=== PATIENT | female | born 1960 | race Caucasian/White ===

== ENCOUNTER 2022-11-24 15:14 | Outpatient (REF) | payer OTHER, SELFPAY ==
[2022-11-24 16:35] LABS: Abs Immature Grans 0.05 10^3/uL (0.0-0.06); Absolute Basophil Count 0.07 10^3/uL (0.0-0.2); Absolute Eosinophil Count 0.17 10^3/uL (0.0-0.7); Absolute Lymphocyte Count 2.16 10^3/uL (1.2-3.4); Absolute Monocyte Count 0.69 10^3/uL (0.1-0.8); Absolute Neutrophil Count 6.58 10^3/uL (1.2-6.7); Basophils % 0.7; Eosinophils % 1.7; HCT 48.4 % (36.0-46.0); HGB 15.4 g/dL (11.2-15.7); Immature Grans % 0.5; Lymphocytes % 22.2; MCH 26.4 pg (27.0-33.0); MCHC 31.8 % (32.0-36.0); MCV 83 fL (80-95); MPV 11.8 fL (8.0-11.0); Monocytes % 7.1; Neutrophils % 67.8; Platelet Count 332 10^3/uL (130-400); RBC 5.83 10^6/uL (3.93-5.22); RDW 14.5 % (11.7-14.6); RDW-SD 43.6 fL; WBC 9.72 10^3/uL (4.4-10.8)
[2022-11-24 17:44] LABS: ALT 29 U/L (14-59); AST 16 U/L (15-37); Albumin 3.8 g/dL (3.4-5.0); Alkaline Phosphatase 67 U/L (46-116); Anion Gap 11.2 mmol/L (3-11); BUN 16 mg/dL (7-18); Bilirubin, Total 0.4 mg/dL (0.2-1.0); CO2 26.8 mmol/L (21.0-32.0); CREATININE 0.8 mg/dL (0.55-1.02); Calculated LDL 201 mg/dL (<100); Chloride 106 mmol/L (98-107); Cholesterol 285 mg/dL (<200); Estimated GFR 82.74 (mL/min/1.73m2); Glucose 100 mg/dL (74-106); HDL Cholesterol 66 mg/dL (40-60); Potassium 4.7 mmol/L (3.5-5.1); Sodium 144 mmol/L (136-145); Total Protein 7.2 g/dL (6.4-8.2); Triglyceride 94 mg/dL (<150)
== END 2022-11-24 15:15 | disposition home or self-care (01) ==
LOC: LBN 15:14
PROVIDERS: Visit Provider Nurse Practitioner
DX: R06.02 Shortness of breath (principal); Z13.220 Encounter for screening for lipoid disorders; R01.1 Cardiac murmur, unspecified; F17.210 Nicotine dependence, cigarettes, uncomplicated; F41.8 Other specified anxiety disorders; R07.89 Other chest pain
CPT/HCPCS: 80053; 80061; 85025

== ENCOUNTER → 2022-12-02 00:57 | Outpatient (CLI) | payer OTHER, SELFPAY ==
--- NOTE | 2022-12-02 06:00 | ETT_ITS ---
APPROVED REPORT Exam: Exercise Treadmill Patient Location: Out-Patient Room/Bed: Stress Nurse: Irene Castrejon RN Ordering Provider:CHRISTIE COTO, Contact Number: [phone] BMI: 32.41 Baseline Rhythm: Sinus Rhythm Indications: family history of heart disease, aortic valve stenosis, chest pain Medical History Medical History: Current smoker, hx melanoma, anxiety, murmur, ?HLD Cardiac Medications: Aspirin Allergies: Penicillins Cardiac Risk Factors: +family history, current everyday smoker, ?HLD Previous Cardiac Procedures: None Pretest Chest Pain Characteristics: None Exercise History: Indeterminate Physical Disabilities: None Lung Sounds: LCTA Heart Sounds: Regular Stress Test Details Test: Exercise stress testing was performed using a Isreal protocol. Rest Stress HR Resting HR Supine: 69 bpm Max Heart Rate (APMHR): 157 bpm Resting HR Standin bpm Target HR (85% APMHR): 133 bpm Max HR Achieved: 141 bpm % of APMHR: 90 Recovery HR: 80 bpm HR response to stress: Normal HR response to stress BP Resting BP Supine: 123/72 mmHg Resting BP Standin/90 mmHg Max BP: 188/78 mmHg Recovery BP: 128/98 mmHg BP response to stress: Normal blood pressure response to stress. ECG Resting ECG: Sinus Rhythm Ectopy: None Stress ECG: Sinus Tachycardia ST Change: No significant ST segment changes noted Arrhythmia: None Recovery ECG: Sinus Rhythm Recovery ST Change: No significant ST segment changes noted Recovery Arrhythmia: Rare PAC Clinical Reason for Termination: Fatigue, Dyspnea Stress Symptoms: Dyspnea, General Fatigue Exercise duration: 6 min08 sec Highest Stage Reached: Stage 3: 3.4 mph at 14% grade. Exercise capacity: 7.25 METs Angina Score: None [place] Treadmill Score: 5.5 Rate Pressure Product: [id number] Stress ECG Conclusion 1. Resting electrocardiogram was within normal limits 2. Patient exercised on the Isreal protocol and completed a workload of 7.25 METS 3. Normal heart rate and blood pressure response to exercise. The patient achieved 90% of predicted heart rate for age 4. There was no electrocardiographic evidence of myocardial ischemia 5. There were no significant dysrhythmias [place] Treadmill Score is 5.5 which is Low risk. Stress Test Summary STAGE Time (mins) Speed (mph) Grade (%) HR BP SpO2 SYMPTOMS METS Supine 69 123/72 Standing 69 112/90 1 3 1.7 10 117 150/90 4.5 2 6 2.5 12 138 7 3 9 3.4 14 141 10 1 min recovery 121 188/78 3 min recovery 94 138/64 6 min recovery 80 128/68
== END ==
PROVIDERS: PCP Nurse Practitioner; Visit Provider Nurse Practitioner
DX: R06.02 Shortness of breath (principal); R07.9 Chest pain, unspecified
CPT/HCPCS: 93017

== ENCOUNTER 2022-12-20 15:08 | Emergency (ER) | payer OTHER, SELFPAY ==
[2022-12-20] VITALS (8 sets, daily range): BP systolic 156–187; BP diastolic 75–102; PULSE 64–84; RESP 16–20; TEMP 36.8–36.9; O2SAT 97–100
--- NOTE | 2022-12-20 15:00 | RT.EKG_ITS ---
APPROVED REPORT Exam: Resting ECG Reason for Exam: chest pain Patient Location: E HR:79 bpm ECG Measurements Heart Rate 79 AXIS MN 156 P 51 QRSd 85 QRS 37 QT 380 T 33 QTc 435 Conclusion Sinus rhythm...normal P axis, V-rate 60- 99 Probable left atrial enlargement...P >50mS, <-0.10mV V1 sinus rhythm, normal axis, normal intervals, non ischemic
--- NOTE | 2022-12-20 15:30 | DI.RAD_ITS ---
Exam(s) XR CHEST 2V PA LATERAL EXAM: XR CHEST 2V PA LATERAL CLINICAL HISTORY: chest pain TECHNIQUE: 2D digital imaging was performed. COMPARISON: No exams were available for comparison FINDINGS: Leads overlie the chest HEART: Normal size. Aorta: Not dilated. PULMONARY VASCULATURE: Normal. LUNGS: Clear. PLEURAL SPACE: No pleural effusion or pneumothorax. BONE:Unremarkable for age. IMPRESSION: No acute abnormality. DATA REPOSITORY: RADIATION DOSE DELIVERED:
--- NOTE | 2022-12-20 15:37 | ED.GENADUL_ITS ---
Discharge Plan Disposition Patient Disposition: Home Condition: Improving Discharge Details Chief Complaint: Chest Pain Clinical Impression: Chest pain Primary Care Provider: Kiki Ames ED Provider: Jass Álvarez Home Meds and New Rx's Prescriptions: No Action Zyrtec 10 mg capsule 10 mg PO DAILY PRN (Reason: allergies) PreserVision AREDS 2 Plus MV 200 mcg-15 mcg- 5 mg-1 mg capsule PO DAILY Patient Comments: Pt states not taking ML 12/20/22 aspirin [Adult Aspirin Regimen] 81 mg tablet,delayed release (DR/EC) 81 mg PO DAILY cholecalciferol (vitamin D3) 50 mcg (2,000 unit) capsule 50 mcg PO DAILY cyanocobalamin (vitamin B-12) [Vitamin B-12] 250 mg PO DAILY Discharge Instructions Instructions: Chest Pain (ED) Additional Instructions: Please follow-up with your carbon electrodes supervisor and your echocardiogram as scheduled. Return to the emergency department for any worsening symptoms Medical Decision Making 62-year-old female presents with intermittent chest pain over the last couple of weeks, more noticeable this morning, brief in nature rating to left arm, no shortness of breath no nausea vomiting or diaphoresis; no leg pain swelling or history of thromboembolic disease no exogenous estrogen use. Recent normal cardiac stress test. Scheduled for echocardiogram this week. Currently asymptomatic. Noted to be hypertense on arrival now systolic blood pressure in the 150s. EKG normal sinus rhythm normal axis normal intervals nonischemic. Must consider ACS versus musculoskeletal strain versus costochondritis versus pleurisy lower suspicion for PE or aortic pathology, lower suspicion for pneumothorax or pneumonia. Given age and family history will obtain basic labs troponin chest x-ray, will complete patient's dose of aspirin as she took 81 mg of aspirin earlier today. If negative labs and imaging and patient remains asymptomatic will likely follow-up for echocardiogram and cardiology follow-up 16: 34 patient resting comfortably no acute distress hemodynamically stable. Labs and imaging unremarkable. Patient does endorse a history of costochondritis. Shared decision at bedside regarding second troponin versus home with close follow-up. Patient feeling better would like to follow-up as an outpatient. Given strict return precautions for any worsening symptoms HPI General Date/Time Provider Initiated Documentation: 12/20/22 15:25 . HPI Narrative: 62-year-old female family history of coronary disease, presents with intermittent left anterior chest pain radiating to left arm over the last couple of weeks nonexertional; no shortness of breath nausea vomiting or diaphoresis. Episodes are intermittent and brief in nature. No leg pain, no exogenous estrogen use no history of thromboembolic disease. Recent stress test normal per patient. Is scheduled for an echo this week. Currently asymptomatic Related Data Home Medications Medication Instructions Recorded Confirmed aspirin 81 mg tablet,delayed 81 mg PO DAILY 11/23/22 12/20/22 release (Adult Aspirin Regimen) cetirizine 10 mg capsule (Zyrtec) 10 mg PO DAILY PRN allergies 11/23/22 12/20/22 cholecalciferol (vitamin D3) 50 50 mcg PO DAILY 11/23/22 12/20/22 mcg (2,000 unit) capsule cyanocobalamin (vitamin B-12) 250 mg PO DAILY 11/23/22 12/20/22 [Vitamin B-12] mv-mn-folic 200 mcg-vit K 15 cap PO DAILY 11/23/22 mcg-lutein 5 mg-zeaxanthin 1 mg capsule (PreserVision AREDS 2 Plus Multivit) Allergies Allergy/AdvReac Type Severity Reaction Status Date / Time Penicillins Allergy Unknown unknown Verified 12/20/22 16:06 General Stated Complaint: Chest Pain ROSA: 2 Review of Systems Narrative: Review of Systems Constitutional: negative Eyes: negative ENT: negative Cardiovascular: Chest pain Respiratory: negative Gastrointestinal: negative : negative Musculoskeletal: negative Skin: negative Neurologic: negative Psych: negative PFSH All Active Problems (Updated 12/20/22 @ 16:36 by Jass Álvarez MD) Chest pain (Acute) Onychomycosis (Acute) 12/08/22 [facility] Derm History of melanoma (Acute) Tobacco abuse (Acute) Macular degeneration (Acute) Medical History (Updated 12/20/22 @ 16:36 by Jass Álvarez MD) Amputated toe of right foot H/O anxiety disorder Surgical History (Updated 10/21/22 @ 15:49 by Chela Bruce) H/O abdominoplasty H/O breast augmentation Family History (Updated 11/24/22 @ 10:38 by Kiki Ames NP) Mother Cancer Diabetes Heart disease Hypertension Father Heart disease Brother Heart disease Sister Cancer Renal cancer Social History (Updated 11/24/22 @ 10:17 by Lorena Wren LPN) Smoking/Tobacco Use Status: Current every day Tobacco: How many years used: 30 Quit status: considering quitting Smoking risk assessment performed?: Yes Alcohol Intake: current Alcohol Intake frequency: 0-2 drinks per day Alcohol type: wine Counseling given: No Details: 1 glass of wine per day Drug use: Never Adopted: No Caregiver/Support person: No Foster care: No Household members: spouse Housing: house Number of Children: 3 number of grandchildren: 3 Communication Needs: None and Corrective Lenses Education Level: vocational Do you need help understanding health information?: Never 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 Pets and animals: No Sexually active: Yes Do you think of yourself as: straight/heterosexual Current gender identity: female What is your relationship status?: How often do you talk on the phone with friends or family?: once per week Do you belong to any clubs or organized social groups?: no Panel score (0-1 are the most socially isolated patients): 1 What type of physical activity do you participate in: none Usha/Anglican: Rastafarian Special usha needs: No Seatbelt use: always Drive intox or ride w/intox auto crane driver: No Working smoke detector in home: Yes Carbon monox detector in home: Yes Do you feel safe at home: Yes Do you feel safe in your relationship?: Yes Exam Narrative Exam Narrative: Physical Examination General: alert, awake, cooperative, resting comfortably, no acute distress HEENT: normocephalic, atraumatic; PERRL, EOM intact, conjunctiva normal; no nasal discharge; moist mucous membranes, oral and pharyngeal mucosa normal, tolerating secretions Neck: supple, trachea midline; full ROM Chest: normal to inspection Respiratory: normal respiratory effort, speaking in full sentences, clear to auscultation, no wheezing, rales or rhonchi Cardiac: regular rate, regular rhythm, S1S2 intact, no murmurs rubs or gallops GI: abdomen soft, non-tender, non-distended; no palpable mass or hepatosplenomegaly Skin: no lesions, rashes or trauma appreciated Neuro: AAOx3, normal speech, moving all extremities Extremities: No peripheral edema Psych: Appropriate mood and affect Course Vital Signs Vital signs: Vital Signs Temperature 36.8 C 12/20/22 15:11 Pulse 81 12/20/22 15:11 Respiratory Rate 18 12/20/22 15:11 Blood Pressure 187/102 H 12/20/22 15:11 Pulse Oximetry 99 09/11/23 15:11 Temperature 36.8 C 12/20/22 15:11 Temperature Source Oral 12/20/22 15:11 Pulse 69 12/20/22 15:31 Pulse 76 12/20/22 15:31 Respiratory Rate 20 12/20/22 15:18 Respiratory Effort Normal 12/20/22 15:18 Respiratory Depth Normal 12/20/22 15:18 Respiratory Pattern Normal 12/20/22 15:18 Blood Pressure 156/88 H 12/20/22 15:31 Blood Pressure Mean 111 12/20/22 15:31 Pulse Oximetry 98 12/20/22 15:31 Oxygen Delivery Method Room Air 12/20/22 15:11 Oxygen Flow Rate 0 12/20/22 15:11 Pain Level 5 12/20/22 15:18
[2022-12-20] MEDS: Aspirin 81 MG CHEW 243 MG CH (15:39)
[2022-12-20 15:48] LABS: Abs Immature Grans 0.04 10^3/uL (0.0-0.06); Absolute Basophil Count 0.08 10^3/uL (0.0-0.2); Absolute Eosinophil Count 0.27 10^3/uL (0.0-0.7); Absolute Lymphocyte Count 3.07 10^3/uL (1.2-3.4); Absolute Monocyte Count 0.77 10^3/uL (0.1-0.8); Absolute Neutrophil Count 6.23 10^3/uL (1.2-6.7); Basophils % 0.8; Eosinophils % 2.6; HCT 47.7 % (36.0-46.0); HGB 15.5 g/dL (11.2-15.7); Immature Grans % 0.4; Lymphocytes % 29.3; MCH 26.7 pg (27.0-33.0); MCHC 32.5 % (32.0-36.0); MCV 82 fL (80-95); MPV 10.8 fL (8.0-11.0); Monocytes % 7.4; Neutrophils % 59.5; Platelet Count 333 10^3/uL (130-400); RDW 14.4 % (11.7-14.6); WBC 10.46 10^3/uL (4.4-10.8)
[2022-12-20 16:10] LABS: ALT 32 U/L (14-59); AST 20 U/L (15-37); Albumin 3.9 g/dL (3.4-5.0); Alkaline Phosphatase 70 U/L (46-116); Anion Gap 12.3 mmol/L (3-11); BUN 17 mg/dL (7-18); Bilirubin, Total 0.3 mg/dL (0.2-1.0); CO2 25.7 mmol/L (21.0-32.0); CREATININE 0.9 mg/dL (0.55-1.02); Calcium 9.3 mg/dL (8.5-10.1); Chloride 101 mmol/L (98-107); Estimated GFR 71.83 (mL/min/1.73m2); Glucose 94 mg/dL (74-106); Potassium 3.7 mmol/L (3.5-5.1); Sodium 139 mmol/L (136-145); Total Protein 8.2 g/dL (6.4-8.2); Troponin I < 50 ng/L (<or=60)
== END 2022-12-20 16:47 | disposition home or self-care (01) ==
PROVIDERS: Emergency Provider Emergency Medicine; PCP Nurse Practitioner
DX: R07.9 Chest pain, unspecified (principal)
CPT/HCPCS: 36415; 80053; 93005; 99284; 71046; 84484; 85025; 93010

== ENCOUNTER → 2022-12-24 00:35 | Outpatient (CLI) | payer OTHER, SELFPAY ==
--- NOTE | 2022-12-24 07:30 | DI.US_ITS ---
APPROVED REPORT EXAM: Comprehensive 2D, Doppler, and color-flow Echocardiogram Patient Location: Out-Patient Music Autographer: Angela Hyman RDCS (AE) Indications: Strong family history of aortic stenosis, cardiac murmur Other Information Study Quality: Adequate Conclusion Normal left ventricular wall thickness and chamber size. Ejection fraction is 55 to 60%. Wall motio n is normal Normal right ventricular size and systolic function Both atria are normal in size Aortic valve is mildly sclerotic and trileaflet without stenosis or regurgitation Estimated right ventricular systolic pressure is 28 mmHg Wall motion Left Ventricle The left ventricle is normal size. The left ventricular systolic function is normal. The left ventric ular ejection fraction is within the normal range. There is normal left ventricular wall thickness. T here is normal LV segmental wall motion. There is no ventricular septal defect visualized. LVEF is 57 %. Right Ventricle The right ventricle is normal size. The right ventricular systolic function is normal. Atria The left atrium size is normal. The right atrium size is normal. The interatrial septum is intact wit h no evidence for an atrial septal defect. Aortic Valve The Aortic valve is mildly sclerotic. Aortic valve is trileaflet. There is no aortic valvular stenosi s. No aortic regurgitation is present. Mitral Valve The mitral valve is normal in structure. No evidence of mitral valve stenosis. Trace mitral regurgita tion. Tricuspid Valve The tricuspid valve is normal in structure. There is no tricuspid valve stenosis. Trace tricuspid reg urgitation. The RVSP is 27.7mmHg. Pulmonic Valve The pulmonary valve is normal in structure. There is no pulmonic valvular stenosis. There is no pulmo mylene valvular regurgitation. Great Vessels The aortic root is normal in size. The ascending aorta is normal in size. Descending aorta is normal in caliber. IVC is normal in size and collapses >50% with inspiration. Pericardium There is no pericardial effusion. 2D Dimensions IVSD d PLAX 0.85 cm F: 0.6-1.0 Ao Root d 2.99 cm F: 2.7 - 3.3 LVPW d PLAX 0.84 cm F: 0.6 - 1.0 Ao Asc Diam d 3.06 cm F: 2.3 - 3.1 LVID d PLAX 4.31 cm F: 3.8 - 5.2 LVDs 2.92 cm F: 2.2 - 3.5 LV EF Teichholz 60.9 % FS 32.31 % LV EDV (Teich) 83.5 mL LV ESV (Teich) 32.7 mL M-Mode TAPSE 2.64 cm (M/F) >1.7 Auto EF LV EDV A4C 66.3 mL LV EDV A2C 100.4 mL LV EDV BP LV ESV A4C 28.6 mL LV ESV A2C 41.6 mL LV ESV BP LVEF(%) A4C 56.9 % LVEF(%) A2C 58.5 % LVEF(%) BP LV SV A4C 37.7 ml LV SV A2C 58.8 ml LV SV BP LV CO A4C 2.3 L/min LV CO A2C 3.7 L/min LV CO BP HR A4C 61.84 BPM HR A2C 63.61 BPM LV EDV Index (BP) LA Volume LA Length A4C 4.6 cm LA Length A2C 4.9 cm LA Area A4C s 16.34 cm2 LA Area A2C s 14.38 cm2 LA Vol A4C A-L 49.16 mL LA Vol A2C A-L 36.07 mL LA Vol Biplane A-L 43.3 mL LA Vol/BSA A4C A-L LA Vol/BSA A2C A-L LA Vol/BSA BP A-L 23.3 mL/m2 LA Vol A4C MOD 46.5 mL LA Vol A2C MOD 32.5 mL LA Vol BP MOD 39.8 mL RA Volume RA Area A4C 8.0 cm2 RA ESV A4C (A-L) 15.5mL RA Vol/BSA A4C A-L RA Length A4C 3.5 cm RA ESV A4C (MOD) 15.2mL LV Diastology MV E' medial 0.069 (>0.07 m/s) MV E Vmax 0.80 (0.4-1.3 m/s) MV E/E' MED 11.62 (<14) MV A Vmax 0.80 (0.4-1.3 m/s) MV E' lateral 0.094 (>0.1 m/s) E/A Ratio 1.0 MV E/E' LAT 8.52 (<14) MV E' Average 0.081 m/s MV E/E'(average) 9.83 Aortic Valve AoV Vmax 1.53 m/s LVOT Vmax 1.09 m/s AoV Peak Grad 9.3 mmHg LVOT Peak Grad 4.7 mmHg AoV Area (Vmax) 1.96 cm2 LVOT VTI 0.251 m AoV VTI 0.352 m LVOT Mean Grad 2.1 mmHg AoV Mean Dk. 0.97 m/s LVOT SV 69.28 mL AoV Mean Grad 4.5 mmHg LVOT Diam s 1.85 cm AoV Area (VTI) 1.97 cm2 Velocity Ratio 0.71 Mitral Valve MV DT 198 (160-240 msec) MV Vmax TIPS 1.07 m/s MV Mean Grad 1.8 (<2mmHg) MV VTI 0.370 m Pulmonary Valve PV Vmax 0.98 (0.5-1.5 m/s) RVOT Vmax 0.63 m/s PV Peak Grad 3.9 mmHg RVOT Peak Gr. 1.6 mmHg PV Mean Dk 0.69 m/s RVOT VTI 0.152 m PV Mean Grad 2.1 mmHg RVOT Mean Gr. 0.8 mmHg Tricuspid Valve RA Pressure 3.00 mmHg TR Vmax 2.49 m/s TV S' 0.10 m/s TR Peak Grad 24.7 mmHg RVSP (TR) 27.7 mmHg
== END ==
PROVIDERS: PCP Nurse Practitioner; Visit Provider Nurse Practitioner
DX: R01.1 Cardiac murmur, unspecified (principal); Z82.49 Family history of ischemic heart disease and other diseases of the circulatory system
CPT/HCPCS: 93306

== ENCOUNTER 2023-01-11 12:29 | Outpatient (REF) | payer OTHER, SELFPAY ==
--- NOTE | 2023-01-11 10:00 | PAPFT_PTH ---
PATIENT: Jazmyn Kearney LOC: [facility] U#:[id number] AGE/SX: 62/F ROOM: RE01/11/[address]: Kiki Ames APRN : 1960 BED: DIS: 01/11/2023 SPEC #: [id number] RECD: 01/11/23 18:19 STATUS: BHUPINDER REQ #: [id number] RITA: 01/11/23 10:[address]: Kiki Ames DEPT: [facility] Cytology RECD BY: Maryan New Tissues: 1 - CX/ENDOCX FOR PAP SMEARS Procedures: PAP THIN PREP/UVM Screening HPV DNA PROBE Comments: [id number]
== END 2023-01-11 12:30 | disposition home or self-care (01) ==
LOC: LBO 12:29
PROVIDERS: PCP Nurse Practitioner; Visit Provider Nurse Practitioner
DX: Z12.4 Encounter for screening for malignant neoplasm of cervix (principal); Z11.51 Encounter for screening for human papillomavirus (HPV)
CPT/HCPCS: 88142; 87624

== ENCOUNTER → 2023-02-22 00:02 | Outpatient (CLI) | payer OTHER, SELFPAY ==
--- NOTE | 2023-02-22 07:30 | DI.MAMMO_ITS ---
Exam(s) MG MAMMO SCREENING 60 MIN DUR EXAM: MG MAMMO SCREENING 60 MIN DUR CLINICAL HISTORY: breast cancer screening,implants,z12.39 TECHNIQUE: Bilateral full field digital CC and MLO mammographic images were obtained with 3D tomosyn thesis and utilizing computer aided detection (CAD). COMPARISON: There are no priors available at this time for comparison. FINDINGS: Masses/Architectural Distortion: The patient has bilateral breast implants. No suspicious masses or areas of architectural distortion are seen. Microcalcifications: No suspicious pleomorphic-type are seen. Skin Thickening/Nipple Retraction: None. IMPRESSION: 1. No evidence for malignancy at this time. 2. Unless there is more urgent need, screening mammography is recommended, as per [employer] guidelines. BI-RADS Category 1 - Negative Breast Density - Category B - Scattered areas of fibroglandular density Breast density category C or D implies that the patient has dense breast tissue. Dense breast tissue is very common and is not abnormal but dense breast tissue can make it harder to find cancer on a ma mmogram. Also, dense breast tissue may increase their breast cancer risk. This information about the result of the mammogram report was provided to the patient to raise their awareness. Use this report when you speak with the patient about their risks for breast cancer, which includes their family hist ory. At that time, you may recommend for more screening tests (Ultrasound or MRI) as they might be us eful based on their risk. A negative radiographic report should not delay biopsy if a dominant or clinically suspicious mass is present. Up to ten percent of cancers are not identified on mammography. A negative report may reinforce clinical impression. Adenosis and dense breasts may obscure an underlying neoplasm. False positive reports average 6 to 10%. Patient will receive a letter notifying them of these results.
== END ==
PROVIDERS: PCP Nurse Practitioner; Visit Provider Nurse Practitioner
DX: Z12.39 Encounter for other screening for malignant neoplasm of breast (principal)
CPT/HCPCS: 77063; 77067

== ENCOUNTER 2023-04-21 09:26 | Emergency (ER) | payer BC, SELFPAY ==
[2023-04-21] VITALS (17 sets, daily range): BP systolic 148–197; BP diastolic 76–99; PULSE 67–103; RESP 12–17; TEMP 36.6–37; O2SAT 94–99
--- NOTE | 2023-04-21 09:38 | ED.GENADUL_ITS ---
HPI General Stated Complaint: Abd Prob ROSA: 3 Date/Time Provider Initiated Documentation: 04/21/23 09:38. HPI Narrative: 62 year-old female presents to ED today by POV/ambulating with a chief complaint of abdominal pain-epigastric, starting last night, head cold for a week, and having nausea and chills. Patient also reports that she has R sided flank pain/back pain but was shoveling heavy snow as well which confounds onset. Quality described as aching, no radiation to shortness of breath, chest pain, dizziness, near syncope, bowel/urinary changes, does state she thought this may have been indigestion at onset but has become worse than her typical indigestio n. Severity is described as 6-7/10. Palliating factors include nothing specific attempted. Provoking factors include nothing specific. Events leading up to the incident/Associated Symptoms: Patient denies surgical abdominal history, save for liposuction in remote past. Patient not anticoagulated. Related Data Home Medications Medication Instructions Recorded Confirmed aspirin 81 mg tablet,delayed 81 mg PO DAILY 11/23/22 04/21/23 release (Adult Aspirin Regimen) cetirizine 10 mg capsule (Zyrtec) 10 mg PO DAILY PRN allergies 11/23/22 04/21/23 cholecalciferol (vitamin D3) 50 50 mcg PO DAILY 11/23/22 04/21/23 mcg (2,000 unit) capsule cyanocobalamin (vitamin B-12) 250 mg PO DAILY 11/23/22 04/21/23 [Vitamin B-12] mv-mn-folic 200 mcg-vit K 15 1 cap PO DAILY 11/23/22 04/21/23 mcg-lutein 5 mg-zeaxanthin 1 mg capsule (PreserVision AREDS 2 Plus Multivit) lisinopril 10 mg tablet 10 mg PO DAILY #90 tabs 02/23/23 04/21/23 rosuvastatin 20 mg tablet 20 mg PO DAILY #90 tabs 02/23/23 04/21/23 sulfamethoxazole 800 1 tab PO BID biliary colic 3 days 04/21/23 mg-trimethoprim 160 mg tablet #6 tabs Previous Rx's Medication Instructions Recorded lisinopril 10 mg tablet 10 mg PO DAILY #90 tabs 02/23/23 rosuvastatin 20 mg tablet 20 mg PO DAILY #90 tabs 02/23/23 sulfamethoxazole 800 1 tab PO BID biliary colic 3 days 04/21/23 mg-trimethoprim 160 mg tablet #6 tabs Allergies Allergy/AdvReac Type Severity Reaction Status Date / Time Penicillins Allergy Intermediate Hives Verified 04/21/23 09:35 Review of Systems All systems reviewed & are unremarkable except as noted in HPI and below PFSH All Active Problems (Updated 04/21/23 @ 15:15 by JAZLYN Rapp) Biliary colic (Acute) Torus mandibularis (Acute) Exostosis, jaw (Acute ~01/2023) Family history of aortic stenosis (Acute) Hyperlipidemia (Acute) Primary hypertension (Acute) Onychomycosis (Acute) 12/08/22 [facility] D[facility] History of melanoma (Acute) Tobacco abuse (Acute) Macular degeneration (Acute) Medical History (Updated 04/21/23 @ 15:15 by JAZLYN Rapp) H/O anxiety disorder Amputated toe of right foot Surgical History H/O abdominoplasty H/O breast augmentation Family History Mother Cancer Diabetes Heart disease Hypertension Father Heart disease Brother Heart disease Sister Cancer Renal cancer Social History (Updated 01/11/23 @ 10:02 by Lorena Wren LPN) Smoking/Tobacco Use Status: Current every day Tobacco Type: cigarettes Tobacco: How many years used: 30 Quit status: considering quitting Smoking risk assessment performed?: Yes Alcohol Intake: current Alcohol Intake frequency: a few times a month Alcohol type: wine Counseling given: No Details: 1 glass of wine per day Drug use: Never Substance use type: does not use Adopted: No Caregiver/Support person: No Foster care: No Household members: spouse Housing: house Number of Children: 3 number of grandchildren: 3 Communication Needs: Corrective Lenses Education Level: vocational Do you need help understanding health information?: Never 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 G Pets and animals: No Sexually active: Yes Do you think of yourself as: straight/heterosexual Current gender identity: female What is your relationship status?: How often do you talk on the phone with friends or family?: once per week Do you belong to any clubs or organized social groups?: no Panel score (0-1 are the most socially isolated patients): 1 What type of physical activity do you participate in: none Usha/Mandaen: Rastafarian Special usha needs: No Seatbelt use: always Drive intox or ride w/intox residential driver: No Working smoke detector in home: Yes Carbon monox detector in home: Yes Do you feel safe at home: Yes Do you feel safe in your relationship?: Yes Victim of physical abuse: No PAWSS Have you Been Recently Intoxicated or Drunk Within the Last 30 days?: No Have you Ever Experienced Previous Episodes of Alcohol Withdrawal?: No Have you ever Experienced Withdrawal Seizures?: No Have you ever Experienced Delirium Tremens(DT)s?: No Have you ever undergone Alcohol Rehabilitation Treatment (i.e, inpt ot outpatient treatment programs)?: No Have you ever Experienced Blackouts?: No Have you ever Combined Alcohol with other Downers within the last 90 days?: No Have you ever Combined Alcohol with any other Substance of Abuse during the last 90 days?: No Result: 0 Exam Narrative Exam Narrative: GENERAL APPEARANCE: Well-nourished, non-toxic, awake and alert, atraumatic, no acute distress. SKIN: Warm, pink, dry, intact, without rashes/lesions/ulcerations. HEAD: Normocephalic, atraumatic, normal hair distribution for gender/age. EYES: Pupils PERRLA, EOMs intact without nystagmus, normal conjunctiva, no exudates on lids/lashes. ENT: Nares patent, no circumoral cyanosis, no facial swelling NECK: Supple, trachea midline, painless cervical ROM. LUNGS/CHEST: Lungs CTA bilaterally- no rhonchi/rales/wheezes diffusely, non- labored respirations, normal A/P diameter, symmetrical expansion, no chest wall deformity HEART (CV/PV): Regular rate and rhythm without murmur, mild tachycardia 103, no peripheral edema, no JVD. ABDOMEN: Soft, non-distended, no guarding, epigastric & RUQ tenderness significantly, Gilman's +, R CVA TTpercussion. MSK: Normal ROM, no swelling/deformity to bilateral UEs or LEs, moving all extremities without weakness, no cyanosis, spine midline without tenderness, normal curvature. NEURO: Mental Status AAOx4 - alert to person, place, time, events No facial droop, no forehead involvement. Motor: No focal weakness - strength 5/5 in bilateral UEs and LEs, proximal and distal, symmetric. Sensory: sensation intact to light touch globally. Gait normal: patient ambulated without ataxia into ED room. PSYCH: euthymic, cooperative, pleasant, appropriate speech Course Vital Signs Vital signs: Vital Signs Temperature 36.6 C 04/21/23 09:30 Pulse 103 H 04/21/23 09:30 Respiratory Rate 17 04/21/23 09:30 Blood Pressure 197/99 H 04/21/23 09:30 Pulse Oximetry 99 04/21/23 09:30 Temperature 36.6 C 04/21/23 09:32 Temperature Source Temporal Artery Scan 04/21/23 09:32 Pulse 103 H 04/21/23 09:32 Respiratory Rate 17 04/21/23 09:32 Respiratory Effort Normal 04/21/23 09:32 Blood Pressure 197/99 H 04/21/23 09:32 Blood Pressure Position Sitting 04/21/23 09:32 Pulse Oximetry 99 04/21/23 09:32 Oxygen Delivery Method Room Air 04/21/23 09:32 Oxygen Flow Rate 0 04/21/23 09:32 Pain Level 8 04/21/23 09:34 Medical Decision Making This dictation utilizes [id number] dictation software and may contain unedited grammatical errors. 62 y/o F presents to ED today with a chief complaint of onset of epigastric/RUQ abdominal pain, chills, nausea, and R flank pain last night. Has had a head cold for one week without shortness of breath. Patients' medical history: HTN. Family and social history: noncontributory. Pertinent exam findings / vital signs include ABDOMEN: Soft, non-distended, no guarding, epigastric & RUQ tenderness significantly, Gilman's +, R CVA TTpercussion.. Differential / pathologies of concern include Biliary Colic, Pancreatitis, GERD/Gastritis, Atypical Chest Pain, Pyelonephritis, Renal Stone, Obstructive Uropathy. Diagnostic studies of: -COVID flu rapid antigen, troponin, CMP, CRP/ESR, lactate, lipase, magnesium, liver panel, procalcitonin, CBC, urinalysis, EKG, CTAP with contrast. -WBCs 19 -Procal neg -ESR mild elev -trop neg -lipase wnl -lactate neg -ekg benign -UA ketones & protein -CTAP shows cholecystitis, reflexed to U/S ABD RUQ which shows partially obstructing stones Interventions of: -IVF LR, 1gm IV APAP, 15mg IV Toradol, 4mg IV Zofran. Consulted with Surgery, Dr. Anna, who thinks reasonable for discharge with close clinic follow-up. Recommends 3 days of Bactrim. Not ideal time for surgery with patients' head cold as well. ED Course/Assessment/Plan: 62-year-old female presents with some nausea and vomiting as well as a head cold has been going on for a week and abdominal pain radiates to the back on the right side, this is consistent with biliary colic and she does have multiple gallstones on ultrasound, CT questions cholecystitis but surgery deems it reasonable to follow-up as an outpatient with strict return criteria, patient verbalized understanding of this plan and wished to return home this evening. Findings not consistent with Biliary Obstructive pathology, sepsis, acute emergent pathology. Disposition of Biliary Colic. Patient verbalized understanding of the plan and return to ED criteria and engaged in shared decision making. Medical Records Medical records reviewed: Yes I reviewed the patient's medical records. Imaging Data Radiologic Study: Imaging: CT Scan Radiologist's impression: EXAM: CT ABDOMEN PELVIS W CLINICAL HISTORY: RUQ TTP, epigastric TTP. TECHNIQUE: Imaging Protocol: Axial computed tomography images with coronal and sagittal reformatted images were created and reviewed CONTRAST MATERIAL: Intravenous: Omnipaque-350 100cc Oral: None COMPARISON: No exams were available for comparison FINDINGS: VISUALIZED LUNG BASES: No nodules nor pleural effusions evident. Bilateral saline breast implants noted. ABDOMEN: There is no ascites. LIVER: There are no focal hepatic lesions evident. No dilated intrahepatic ducts. GALLBLADDER/BILIARY: There are no calcified gallstones noted but the gallbladder appears distended and edematous. CBD is not dilated. PANCREAS: No evidence of pancreatic mass nor dilatation of the pancreatic duct. SPLEEN: Spleen is not enlarged. No obvious intrasplenic lesions. Splenic and portal veins are patent. ADRENALS: And there is a significant nodule in left adrenal gland which measures 3.7 cm AP by 2.5 cm wide by 2.6 cm cephalocaudal. There is fusiform thickening of the lateral limb of the opposite-right adrenal gland. Lateral limb exhibits thickness of 9 mm. KIDNEYS:There is a tiny 3 millimeter benign cyst in the superior pole the right kidney which is not require further workup. No other focal renal findings. No hydronephrosis.. ABDOMINAL AORTA: Calcified. Maximum diameter 2.3 cm. No aneurysms of the iliac vessels. LYMPH NODES:There is no retroperitoneal nor paraaortic adenopathy. ABDOMINAL WALL: No evidence of significant anterior abdominal wall nor inguinal hernia. GI: There is no evidence of bowel obstruction, free air, nor abscess. PELVIS: GI: No evidence of appendicitis.The appearance of the colon at and distal to the splenic flexure may reflect colitis. There are few uncomplicated diverticuli. No evidence of acute diverticulitis. LYMPH NODES: No intrapelvic nor inguinal adenopathy. There are surgical clips in the right inguinal region but no masses nor abnormal fluid collections at this level. REPRODUCTIVE: No adnexal masses. Uterus is anteverted. Appears to contain a fundal fibroid measuring approximately 2.5 x 3 cm. URINARY BLADDER: No calculi nor obvious masses evident OSSEOUS: No fractures and no significant osseous lesions. IMPRESSION: 1. Gallbladder is edematous consistent with cholecystitis. There are no visible calcified gallstones but there is subtle suggestion of possible noncalcified intraluminal calculus, best seen on the coronal images. CBD is not dilated. There are no dilated intrahepatic ducts. Recommend ultrasound. 2. No evidence of pancreatitis. No evidence of appendicitis. 3. No evidence of diverticulitis but the appearance of the and colon at and distal to the splenic flexure may reflect colitis versus is collapse with no intraluminal contrast. 4. Fundal level fibroid in the uterus. No adnexal masses. No free fluid in the pelvis. Radiologic Study #2: Imaging: Ultrasound Radiologist's impression: EXAM: US ABDOMEN LIMITED CLINICAL HISTORY: cholecystitis TECHNIQUE: Ultrasound abdomen performed using standard protocol. COMPARISON: US US ECHOCARDIOGRAM from 12/24/[address] ABDOMEN PELVIS W from 04/21/2023 FINDINGS: There is no ascites evident. LIVER: There are no hepatic lesions evident nor dilatation of intrahepatic ducts. GALLBLADDER/BILIARY: There is shadowing gallstones measuring 2 and 1.5 cm. These are in the region the gallbladder neck. The common hepatic duct isnot visualized, due to overlying bowel gas. PANCREAS: There is no evidence of pancreatic mass nor dilatation of the pancreatic duct. RIGHT KIDNEY:No evidence of solid mass, calculus, nor hydronephrosis. No cortical cysts evident. IMPRESSION: 1. Cholelithiasis.. Subtle evidence of acute cholecystitis. CBD not dilated on the CT scan. BD is difficult to visualize on the ultrasound. 2. No other significant ultrasound findings in the right upper quadrant. Lab Data Lab results reviewed: Yes I reviewed the patient's lab results. Labs: Laboratory Tests Range/Units 04/21/23 04/21/23 04/21/23 10:00 10:00 10:35 WBC Cancelled 18.19 H RBC Cancelled 5.24 H Hgb Cancelled 14.1 Hct Cancelled 43.1 MCV Cancelled 82 MCH Cancelled 26.9 L MCHC Cancelled 32.7 RDW Cancelled 13.8 Plt Count Cancelled 272 MPV Cancelled 11.0 Immature Gran % Cancelled 0.3 Neutrophils % Cancelled 87.4 Band Neutrophils % Cancelled Lymphocytes % Cancelled 6.1 Atypical Lymphs % Cancelled Monocytes % Cancelled 5.8 Eosinophils % Cancelled 0.1 Basophils % Cancelled 0.3 Metamyelocytes % Cancelled Myelocytes % Cancelled Promyelocytes % Cancelled Other Cells % Cancelled Nucleated RBC % Cancelled 0.0 Absolute Neutrophils Cancelled 15.90 H Absolute Lymphocytes Cancelled 1.11 L Absolute Monocytes Cancelled 1.06 H Absolute Eosinophils Cancelled 0.02 Absolute Basophils Cancelled 0.05 RBC Morphology Cancelled Polychromasia Cancelled Hypochromasia Cancelled Poikilocytosis Cancelled Basophilic Stippling Cancelled Anisocytosis Cancelled Microcytosis Cancelled Macrocytosis Cancelled Spherocytes Cancelled Tear Drop Cells Cancelled Ovalocytes Cancelled Stomatocytes Cancelled Mg-[place] Bodies Cancelled Arnaldo Cells/Echinocytes Cancelled Acanthocytes (Spur) Cancelled Schistocytes Cancelled ESR Cancelled 31 H VBG Lactate (0.6-1.4) mmol/L 1.0 Sodium (136-145) mmol/L 136 Potassium (3.5-5.1) mmol/L 4.3 Chloride (98-107) mmol/L 102 Carbon Dioxide (21.0-32.0) mmol/L 27.8 Anion Gap (3-11) mmol/L 6.2 BUN (7-18) mg/dL 19 H Creatinine (0.55-1.02) mg/dL 0.9 Est GFR (CKD-EPI 2020) (mL/min/1.73m2) 71.83 Glucose (74-106) mg/dL 149 H Calcium (8.5-10.1) mg/dL 9.8 Magnesium (1.8-2.4) mg/dL 1.8 Total Bilirubin (0.2-1.0) mg/dL 0.4 Conjugated Bilirubin (0.0-0.2) mg/dL 0.1 AST (15-37) U/L 25 ALT (14-59) U/L 46 Alkaline Phosphatase (46-116) U/L 76 Troponin I (< or =60) ng/L < 50 C-Reactive Protein (0.0-0.3) mg/dL 0.93 H Cancelled Total Protein (6.4-8.2) g/dL 8.3 H Albumin (3.4-5.0) g/dL 3.9 Lipase (16-77) U/L 38 Procalcitonin ng/mL < 0.1 Urine Color (Yellow) Urine Clarity (Clear) Urine pH (5-8) Ur Specific [place] (1.005-1.025) Urine Protein (Negative) mg/dL Urine Ketones (Negative) mg/dL Urine Blood (Negative) Urine Nitrite (Negative) Urine Bilirubin (Negative) Urine Urobilinogen (Up to 0.2) mg/dL Ur Leukocyte Esterase (Negative) Urine RBC (0-2) HPF Urine WBC (0-5) HPF Ur Epithelial Cells (Negative) HPF Urine Crystals (Negative) HPF Urine Bacteria (Negative) HPF Urine Casts (Negative) LPF Urine Mucus (Negative) Ur Culture Indicated? Urine Glucose (Negative) mg/dL Range/Units 04/21/23 12:40 WBC RBC Hgb Hct MCV MCH MCHC RDW Plt Count MPV Immature Gran % Neutrophils % Band Neutrophils % Lymphocytes % Atypical Lymphs % Monocytes % Eosinophils % Basophils % Metamyelocytes % Myelocytes % Promyelocytes % Other Cells % Nucleated RBC % Absolute Neutrophils Absolute Lymphocytes Absolute Monocytes Absolute Eosinophils Absolute Basophils RBC Morphology Polychromasia Hypochromasia Poikilocytosis Basophilic Stippling Anisocytosis Microcytosis Macrocytosis Spherocytes Tear Drop Cells Ovalocytes Stomatocytes Mg-[place] Bodies Arnaldo Cells/Echinocytes Acanthocytes (Spur) Schistocytes ESR VBG Lactate (0.6-1.4) mmol/L Sodium (136-145) mmol/L Potassium (3.5-5.1) mmol/L Chloride (98-107) mmol/L Carbon Dioxide (21.0-32.0) mmol/L Anion Gap (3-11) mmol/L BUN (7-18) mg/dL Creatinine (0.55-1.02) mg/dL Est GFR (CKD-EPI 2020) (mL/min/1.73m2) Glucose (74-106) mg/dL Calcium (8.5-10.1) mg/dL Magnesium (1.8-2.4) mg/dL Total Bilirubin (0.2-1.0) mg/dL Conjugated Bilirubin (0.0-0.2) mg/dL AST (15-37) U/L ALT (14-59) U/L Alkaline Phosphatase (46-116) U/L Troponin I (< or =60) ng/L C-Reactive Protein (0.0-0.3) mg/dL Total Protein (6.4-8.2) g/dL Albumin (3.4-5.0) g/dL Lipase (16-77) U/L Procalcitonin ng/mL Urine Color (Yellow) Yellow Urine Clarity (Clear) Clear Urine pH (5-8) 7.0 Ur Specific [place] (1.005-1.025) 1.010 Urine Protein (Negative) mg/dL Negative Urine Ketones (Negative) mg/dL 15 H Urine Blood (Negative) Trace-intact H Urine Nitrite (Negative) Negative Urine Bilirubin (Negative) Negative Urine Urobilinogen (Up to 0.2) mg/dL 0.2 Ur Leukocyte Esterase (Negative) Negative Urine RBC (0-2) HPF 0-2 Urine WBC (0-5) HPF 0-2 Ur Epithelial Cells (Negative) HPF Few Urine Crystals (Negative) HPF Negative Urine Bacteria (Negative) HPF Negative Urine Casts (Negative) LPF Negative Urine Mucus (Negative) Negative Ur Culture Indicated? No Urine Glucose (Negative) mg/dL Negative Quality:SDOH Health Related Social Needs: No Data to Display Discharge Plan Disposition Patient Disposition: Home Condition: Stable Discharge Details Clinical Impression: Biliary colic Primary Care Provider: Kiki Ames ED Provider: Cedric Clarke Home Meds and New Rx's Prescriptions: New sulfamethoxazole-trimethoprim 800-160 mg tablet 1 tab PO BID 3 Days Qty: 6 0RF Continued Zyrtec 10 mg capsule 10 mg PO DAILY PRN (Reason: allergies) PreserVision AREDS 2 Plus MV 200 mcg-15 mcg- 5 mg-1 mg capsule 1 cap PO DAILY Patient Comments: Pt states not taking ML 12/20/22 aspirin [Adult Aspirin Regimen] 81 mg tablet,delayed release (DR/EC) 81 mg PO DAILY cholecalciferol (vitamin D3) 50 mcg (2,000 unit) capsule 50 mcg PO DAILY cyanocobalamin (vitamin B-12) [Vitamin B-12] 250 mg PO DAILY lisinopril 10 mg tablet 10 mg PO DAILY Qty: 90 3RF rosuvastatin 20 mg tablet 20 mg PO DAILY Qty: 90 3RF Discharge Instructions Instructions: Biliary Colic (ED) Additional Instructions: You were seen in the emergency department for your biliary colic, there is a question of some gallstones causing transient obstruction of your cystic duct of your gallbladder. You were seen by surgery and they will follow-up with you in clinic. They have recommended I send you 3 days of an antibiotic called Bactrim to your pharmacy. Please pick this up. Please return to the ED for any severe increase in abdominal pain, intractable nausea or vomiting, fever, shortness of breath or other emergent concerns. Referrals: [facility] [Provider Group] Kiki Ames NP [Primary Care Provider] -
--- NOTE | 2023-04-21 10:00 | RT.EKG_ITS ---
APPROVED REPORT Exam: Resting ECG Reason for Exam: back chest pain Patient Location: E HR:76 bpm ECG Measurements Heart Rate 76 AXIS WI 156 P 53 QRSd 86 QRS 40 QT 388 T 30 QTc 436 Conclusion Sinus rhythm...normal P axis, V-rate 60- 99
[2023-04-21] MEDS: Ketorolac 15 MG/ML VIAL IVP (10:02)
[2023-04-21] MEDS: Ondansetron 4 MG/2 ML VIAL IVP (10:02)
[2023-04-21] MEDS: FAMOTIDINE 20 MG in Normal Saline 100 ML 400 MG IVPB (10:02)
[2023-04-21 10:31] LABS: ALT 46 U/L (14-59); AST 25 U/L (15-37); Albumin 3.9 g/dL (3.4-5.0); Alkaline Phosphatase 76 U/L (46-116); Anion Gap 6.2 mmol/L (3-11); BUN 19 mg/dL (7-18); Bilirubin, Direct 0.1 mg/dL (0.0-0.2); Bilirubin, Total 0.4 mg/dL (0.2-1.0); C-Reactive Protein 0.93 mg/dL (0.0-0.3); CO2 27.8 mmol/L (21.0-32.0); CREATININE 0.9 mg/dL (0.55-1.02); Calcium 9.8 mg/dL (8.5-10.1); Chloride 102 mmol/L (98-107); Estimated GFR 71.83 (mL/min/1.73m2); Glucose 149 mg/dL (74-106); Lipase 38 U/L (16-77); Magnesium 1.8 mg/dL (1.8-2.4); Potassium 4.3 mmol/L (3.5-5.1); Sodium 136 mmol/L (136-145); Total Protein 8.3 g/dL (6.4-8.2); Troponin I < 50 ng/L (< or =60)
[2023-04-21] MEDS: ACETAMINOPHEN 1,000 MG/100 ML BTL 400 MG IVPB (10:31)
[2023-04-21] MEDS: Lactated Ringers 1,000 ML 1000 ML IV (10:35)
[2023-04-21 10:42] LABS: WBC 18.19 10^3/uL (4.4-10.8)
[2023-04-21 10:43] LABS: Abs Immature Grans 0.05 10^3/uL (0.0-0.06); Absolute Basophil Count 0.05 10^3/uL (0.0-0.2); Absolute Eosinophil Count 0.02 10^3/uL (0.0-0.7); Absolute Lymphocyte Count 1.11 10^3/uL (1.2-3.4); Absolute Monocyte Count 1.06 10^3/uL (0.1-0.8); Basophils % 0.3; Eosinophils % 0.1; HCT 43.1 % (36.0-46.0); HGB 14.1 g/dL (11.2-15.7); Immature Grans % 0.3; Lymphocytes % 6.1; MCH 26.9 pg (27.0-33.0); MCHC 32.7 % (32.0-36.0); MCV 82 fL (80-95); Monocytes % 5.8; Neutrophils % 87.4; Platelet Count 272 10^3/uL (130-400); RBC 5.24 10^6/uL (3.93-5.22); RDW 13.8 % (11.7-14.6); RDW-SD 41.4 fL
[2023-04-21 10:44] LABS: Procalcitonin < 0.1 ng/mL
[2023-04-21 10:45] LABS: ESR 31 mm/hr (0-30)
[2023-04-21] MEDS: Normal Saline - Diluent 50 ML VIAL IJ (12:09)
[2023-04-21] MEDS: Omnipaque 350 MG/ML 100 ML BTL IJ (12:11)
--- NOTE | 2023-04-21 12:22 | DI.CT_ITS ---
Exam(s) CT ABDOMEN PELVIS W EXAM: CT ABDOMEN PELVIS W CLINICAL HISTORY: RUQ TTP, epigastric TTP. TECHNIQUE: Imaging Protocol: Axial computed tomography images with coronal and sagittal reformatted images were created and reviewed CONTRAST MATERIAL: Intravenous: Omnipaque-350 100cc Oral: None COMPARISON: No exams were available for comparison FINDINGS: VISUALIZED LUNG BASES: No nodules nor pleural effusions evident. Bilateral saline breast implants no juancarlos. ABDOMEN: There is no ascites. LIVER: There are no focal hepatic lesions evident. No dilated intrahepatic ducts. GALLBLADDER/BILIARY: There are no calcified gallstones noted but the gallbladder appears distended an d edematous. CBD is not dilated. PANCREAS: No evidence of pancreatic mass nor dilatation of the pancreatic duct. SPLEEN: Spleen is not enlarged. No obvious intrasplenic lesions. Splenic and portal veins are paten t. ADRENALS: And there is a significant nodule in left adrenal gland which measures 3.7 cm AP by 2.5 cm wide by 2.6 cm cephalocaudal. There is fusiform thickening of the lateral limb of the opposite-right adrenal gland. Lateral limb exhibits thickness of 9 mm. KIDNEYS:There is a tiny 3 millimeter benign cyst in the superior pole the right kidney which is not r equire further workup. No other focal renal findings. No hydronephrosis.. ABDOMINAL AORTA: Calcified. Maximum diameter 2.3 cm. No aneurysms of the iliac vessels. LYMPH NODES:There is no retroperitoneal nor paraaortic adenopathy. ABDOMINAL WALL: No evidence of significant anterior abdominal wall nor inguinal hernia. GI: There is no evidence of bowel obstruction, free air, nor abscess. PELVIS: GI: No evidence of appendicitis.The appearance of the colon at and distal to the splenic flexure may reflect colitis. There are few uncomplicated diverticuli. No evidence of acute diverticulitis. LYMPH NODES: No intrapelvic nor inguinal adenopathy. There are surgical clips in the right inguinal region but no masses nor abnormal fluid collections at this level. REPRODUCTIVE: No adnexal masses. Uterus is anteverted. Appears to contain a fundal fibroid measurin g approximately 2.5 x 3 cm. URINARY BLADDER: No calculi nor obvious masses evident OSSEOUS: No fractures and no significant osseous lesions. IMPRESSION: 1. Gallbladder is edematous consistent with cholecystitis. There are no visible calcified gallstones but there is subtle suggestion of possible noncalcified intraluminal calculus, best seen on the mari nal images. CBD is not dilated. There are no dilated intrahepatic ducts. Recommend ultrasound. 2. No evidence of pancreatitis. No evidence of appendicitis. 3. No evidence of diverticulitis but the appearance of the and colon at and distal to the splenic fle xure may reflect colitis versus is collapse with no intraluminal contrast. 4. Fundal level fibroid in the uterus. No adnexal masses. No free fluid in the pelvis. Called to ER RADIATION DOSE DELIVERED: 1,139.11mGy.cm Total DLP DATA REPOSITORY: All CT scans at this facility are submitted to the National Radiology Data Registry (NRDR) Dose Index Registry (DIR) with the [employer] (A[employer]). RADIATION OPTIMIZATION: All CT scans at this facility use at least one of these dose optimization te chniques: automated exposure control; mA and/or kV adjustment per patient size (includes targeted exa ms where dose is matched to clinical indication); or iterative reconstruction.
[2023-04-21 12:50] LABS: Bilirubin Negative (Negative); Blood Trace-intact (Negative); Clarity Clear (Clear); Glucose Negative (Negative); Ketones 15 mg/dL (Negative); Leukocyte Esterase Negative (Negative); Nitrite Negative (Negative); Urobilinogen 0.2 mg/dL (Up to 0.2)
[2023-04-21 13:00] LABS: Bacteria Negative HPF (Negative); C & S Indicated? No; Casts Negative LPF (Negative); Crystals Negative HPF (Negative); Epithelial Cells Few HPF (Negative); Mucus Negative (Negative); RBC 0-2 HPF (0-2); WBC 0-2 HPF (0-5)
--- NOTE | 2023-04-21 13:00 | DI.US_ITS ---
Exam(s) US ABDOMEN LIMITED EXAM: US ABDOMEN LIMITED CLINICAL HISTORY: cholecystitis TECHNIQUE: Ultrasound abdomen performed using standard protocol. COMPARISON: US US ECHOCARDIOGRAM from 12/24/[address] ABDOMEN PELVIS W from 04/21/2023 FINDINGS: There is no ascites evident. LIVER: There are no hepatic lesions evident nor dilatation of intrahepatic ducts. GALLBLADDER/BILIARY: There is shadowing gallstones measuring 2 and 1.5 cm. These are in the region th e gallbladder neck. The common hepatic duct isnot visualized, due to overlying bowel gas. PANCREAS: There is no evidence of pancreatic mass nor dilatation of the pancreatic duct. RIGHT KIDNEY:No evidence of solid mass, calculus, nor hydronephrosis. No cortical cysts evident. IMPRESSION: 1. Cholelithiasis.. Subtle evidence of acute cholecystitis. CBD not dilated on the CT scan. BD is di fficult to visualize on the ultrasound. 2. No other significant ultrasound findings in the right upper quadrant. Discussed with ER physician. DATA REPOSITORY:
--- NOTE | 2023-04-21 15:54 | W.SURGCON ---
Date of service: 04/21/23 Time of Service: 15:14 Assessment and Plan Assessment and plan (1) Biliary colic: Status: Acute Assessment and plan: 62yo female presents with RUQ pain, that likely represents biliary colic. Wall edema noted on imaging. Given patient's symptoms are improved, she has tolerated a PO challenge, and she is recovering from a upper respiratory illness, will continue to treat conservatively at this time with close surgical f/u. I personally reviewed the pathophysiology of biliary colic with the patient and her . Pt is to take Bactrim x 3 days. She was instructed to return to the ED with any persistent pain, fevers/chills, nausea/vomiting, etc. A low-fat diet was recommended. She demonstrated understanding, and will make an appt with the surgical clinic to follow up. The importance of smoking cessation was also emphasized as it may lead to perioperative complications when she is ready to proceed to surgery. History of Present Illness History of Present Illness Chief Complaint: abdominal pain Narrative: This is a 62yo female with a history of macular degeneration, HTN, and HLD (newly on rosuvastatin, 04/02) who presents with acute onset of abdominal pain yesterday evening. She describes eating dinner around 5pm, and dessert of cream cheese cake, and pretzels around 7pm. She subsequently developed band-like epigastric pain that radiated around her right flank to her back. She thought some of the pain may be muscular, as she has been shoveling snow. She also has had a sinus cold with coughing of clear sputum, and sneezing this week. She continues to be symptomatic from this. She denies fevers and chills, but had some flushing. She had an episode of non-bloody biliary emesis last night and this morning. She is voiding without difficulty. She had small normal bowel movements last night and this morning, without relief. She has recently had a mild increase in heartburn, which she treats with Tums. She thinks that she had a similar transient episode of abdominal pain a couple weeks after starting her statin. Since admission in the ED, she is feeling better. She had not received any pain medication for at least three hours before my evaluation. Review of Systems Constitutional Constitutional: Denies chills, Denies fever(s), Denies night sweats and Denies weakness Eyes Comments: h/o macular degeneration, no new complaints ENT Ears, Nose, Mouth, and Throat: Reports sinus pain and Reports sinus pressure Comments: Current sinus head cold with prodcutive cough Cardiovascular Cardiovascular: Denies chest pain, Denies chest pain at rest, Denies dyspnea and Denies dyspnea on exertion Respiratory Respiratory: Denies dyspnea and Denies dyspnea on exertion Gastrointestinal Gastrointestinal: Reports abdominal pain, Denies melena, Reports bloating, Denies hematochezia, Denies change in bowel habits, Reports heartburn, Denies diarrhea and Denies loose stools Genitourinary Genitourinary: Denies difficulty voiding and Reports urinary urgency Musculoskeletal Musculoskeletal: Denies numbness and Denies tingling Integumentary/Breasts Skin/Breast: Denies non-healing lesions Neurologic Neurologic: Denies numbness, Denies tingling and Denies weakness PFSH All Active Problems (Updated 04/21/23 @ 15:15 by JAZLYN Rapp) Biliary colic (Acute) Torus mandibularis (Acute) Exostosis, jaw (Acute ~01/2023) Family history of aortic stenosis (Acute) Hyperlipidemia (Acute) Primary hypertension (Acute) Onychomycosis (Acute) 12/08/22 [facility] D[facility] History of melanoma (Acute) Tobacco abuse (Acute) Macular degeneration (Acute) Medical History (Updated 04/21/23 @ 15:15 by JAZLYN Rapp) H/O anxiety disorder Amputated toe of right foot Surgical History H/O abdominoplasty H/O breast augmentation Family History Mother Cancer Diabetes Heart disease Hypertension Father Heart disease Brother Heart disease Sister Cancer Renal cancer Social History (Updated 01/11/23 @ 10:02 by Lorena Wren LPN) Smoking/Tobacco Use Status: Current every day Tobacco Type: cigarettes Tobacco: How many years used: 30 Quit status: considering quitting Smoking risk assessment performed?: Yes Alcohol Intake: current Alcohol Intake frequency: a few times a month Alcohol type: wine Counseling given: No Details: 1 glass of wine per day Drug use: Never Substance use type: does not use Adopted: No Caregiver/Support person: No Foster care: No Household members: spouse Housing: house Number of Children: 3 number of grandchildren: 3 Communication Needs: Corrective Lenses Education Level: vocational Do you need help understanding health information?: Never 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 Pets and animals: No Sexually active: Yes Do you think of yourself as: straight/heterosexual Current gender identity: female What is your relationship status?: How often do you talk on the phone with friends or family?: once per week Do you belong to any clubs or organized social groups?: no Panel score (0-1 are the most socially isolated patients): 1 What type of physical activity do you participate in: none Usha/Holiness: [employer] Special usha needs: No Seatbelt use: always 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 Working smoke detector in home: Yes Carbon monox detector in home: Yes Do you feel safe at home: Yes Do you feel safe in your relationship?: Yes Victim of physical abuse: No Exam Const General: cooperative, healthy appearing, comfortable, no acute distress, well developed and not ill appearing Nutritional Appearance: overweight Orientation: alert, awake and oriented x3 Eyes Sclera: sclerae normal Neck Neck: normal visual inspection, trachea midline and supple Resp Effort & Inspection: normal respiratory effort and able to speak in complete sentences Auscultation: clear to auscultation bilaterally Cardio Rate: regular rate Rhythm: regular rhythm Heart Sounds: S1 normal and S2 normal GI Inspection: no abdominal wall ecchymosis Palpation: soft, no guarding, nontender and other (negative Gilman's sign; gallbladder not palpable on deep palpation) Auscultation: normal bowel sounds Back/Spine/Pelvis Other: no CVA tenderness Neuro General: patient alert, patient awake and patient oriented x3 Cognition: normal cognition Psych Appearance: grossly normal and well kempt Mental Status: mental status grossly normal Speech and Movement: speech and movement normal Insight: insight good Judgment: judgment good Results Last Vital Signs Temp 98.6 F 04/21/23 11:20 Pulse 67 04/21/23 12:00 Resp 12 04/21/23 11:20 BP 157/76 H 04/21/23 12:00 Pulse Ox 94 04/21/23 12:00 Labs 04/21/23 10:35 04/21/23 10:00 Labs: Laboratory Results - last 24 hr 04/21/23 04/21/23 04/21/23 10:00 10:00 10:35 WBC Cancelled 18.19 H RBC Cancelled 5.24 H Hgb Cancelled 14.1 Hct Cancelled 43.1 MCV Cancelled 82 MCH Cancelled 26.9 L MCHC Cancelled 32.7 RDW Cancelled 13.8 Plt Count Cancelled 272 MPV Cancelled 11.0 Immature Gran % Cancelled 0.3 Neutrophils % Cancelled 87.4 Band Neutrophils % Cancelled Lymphocytes % Cancelled 6.1 Atypical Lymphs % Cancelled Monocytes % Cancelled 5.8 Eosinophils % Cancelled 0.1 Basophils % Cancelled 0.3 Metamyelocytes % Cancelled Myelocytes % Cancelled Promyelocytes % Cancelled Other Cells % Cancelled Nucleated RBC % Cancelled 0.0 Absolute Neutrophils Cancelled 15.90 H Absolute Lymphocytes Cancelled 1.11 L Absolute Monocytes Cancelled 1.06 H Absolute Eosinophils Cancelled 0.02 Absolute Basophils Cancelled 0.05 RBC Morphology Cancelled Polychromasia Cancelled Hypochromasia Cancelled Poikilocytosis Cancelled Basophilic Stippling Cancelled Anisocytosis Cancelled Microcytosis Cancelled Macrocytosis Cancelled Spherocytes Cancelled Tear Drop Cells Cancelled Ovalocytes Cancelled Stomatocytes Cancelled Mg-[place] Bodies Cancelled Arnaldo Cells/Echinocytes Cancelled Acanthocytes (Spur) Cancelled Schistocytes Cancelled ESR Cancelled 31 H VBG Lactate 1.0 Sodium 136 Potassium 4.3 Chloride 102 Carbon Dioxide 27.8 Anion Gap 6.2 BUN 19 H Creatinine 0.9 Est GFR (CKD-EPI 2020) 71.83 Glucose 149 H Calcium 9.8 Magnesium 1.8 Total Bilirubin 0.4 Conjugated Bilirubin 0.1 AST 25 ALT 46 Alkaline Phosphatase 76 Troponin I < 50 C-Reactive Protein 0.93 H Cancelled Total Protein 8.3 H Albumin 3.9 Lipase 38 Procalcitonin < 0.1 Urine Color Urine Clarity Urine pH Ur Specific [place] Urine Protein Urine Ketones Urine Blood Urine Nitrite Urine Bilirubin Urine Urobilinogen Ur Leukocyte Esterase Urine RBC Urine WBC Ur Epithelial Cells Urine Crystals Urine Bacteria Urine Casts Urine Mucus Ur Culture Indicated? Urine Glucose 04/21/23 12:40 WBC RBC Hgb Hct MCV MCH MCHC RDW Plt Count MPV Immature Gran % Neutrophils % Band Neutrophils % Lymphocytes % Atypical Lymphs % Monocytes % Eosinophils % Basophils % Metamyelocytes % Myelocytes % Promyelocytes % Other Cells % Nucleated RBC % Absolute Neutrophils Absolute Lymphocytes Absolute Monocytes Absolute Eosinophils Absolute Basophils RBC Morphology Polychromasia Hypochromasia Poikilocytosis Basophilic Stippling Anisocytosis Microcytosis Macrocytosis Spherocytes Tear Drop Cells Ovalocytes Stomatocytes Mg-[place] Bodies [place] Cells/Echinocytes Acanthocytes (Spur) Schistocytes ESR VBG Lactate Sodium Potassium Chloride Carbon Dioxide Anion Gap BUN Creatinine Est GFR (CKD-EPI 2020) Glucose Calcium Magnesium Total Bilirubin Conjugated Bilirubin AST ALT Alkaline Phosphatase Troponin I C-Reactive Protein Total Protein Albumin Lipase Procalcitonin Urine Color Yellow Urine Clarity Clear Urine pH 7.0 Ur Specific [place] 1.010 Urine Protein Negative Urine Ketones 15 H Urine Blood Trace-intact H Urine Nitrite Negative Urine Bilirubin Negative Urine Urobilinogen 0.2 Ur Leukocyte Esterase Negative Urine RBC 0-2 Urine WBC 0-2 Ur Epithelial Cells Few Urine Crystals Negative Urine Bacteria Negative Urine Casts Negative Urine Mucus Negative Ur Culture Indicated? No Urine Glucose Negative Imaging CT scan - pelvis: report reviewed and image reviewed Additional studies: CT and U/s imaging reviewed
== END 2023-04-21 15:26 | disposition home or self-care (01) ==
PROVIDERS: Emergency Provider Physician Assistant; PCP Nurse Practitioner
DX: K80.20 Calculus of gallbladder without cholecystitis without obstruction (principal); Z11.52 Encounter for screening for COVID-19; F17.210 Nicotine dependence, cigarettes, uncomplicated
CPT/HCPCS: 00123; 36415; 80053; 80076; 83690; 84145; 85652; 87426; 93005; 96361; 96374; 96375; 99285; 74177; 76705; 81003; 81015; 83605; 83735; 84484; 85025; 86140; 93010; 99284; J0131; J1885; J2405; J3490

== ENCOUNTER 2023-04-22 09:09 | Emergency (ER) | payer BC, SELFPAY ==
[2023-04-22 09:25] VITALS: BP 148/82; PULSE 97; RESP 18; O2SAT 97
--- NOTE | 2023-04-22 10:00 | W.ED.GENAD ---
HPI General Stated Complaint: Abd Prob Mode of arrival: ambulatory. ROSA: 3 Date/Time Provider Initiated Documentation: 04/22/23 09:51. Limitations to Documentation: no limitations. Information obtained by: patient. History of Present Illness Biliary colic moderate 6 sharp abdomen reports radiation to back day(s) (2) constant No relieving factors improve symptom(s), No exacerbating factors reported nausea/vomiting other (Bactrim) Related Data Home Medications Medication Instructions Recorded Confirmed aspirin 81 mg tablet,delayed 81 mg PO DAILY 11/23/22 04/21/23 release (Adult Aspirin Regimen) cetirizine 10 mg capsule (Zyrtec) 10 mg PO DAILY PRN allergies 11/23/22 04/21/23 cholecalciferol (vitamin D3) 50 50 mcg PO DAILY 11/23/22 04/21/23 mcg (2,000 unit) capsule cyanocobalamin (vitamin B-12) 250 mg PO DAILY 11/23/22 04/21/23 [Vitamin B-12] mv-mn-folic 200 mcg-vit K 15 1 cap PO DAILY 11/23/22 04/21/23 mcg-lutein 5 mg-zeaxanthin 1 mg capsule (PreserVision AREDS 2 Plus Multivit) lisinopril 10 mg tablet 10 mg PO DAILY #90 tabs 02/23/23 04/21/23 rosuvastatin 20 mg tablet 20 mg PO DAILY #90 tabs 02/23/23 04/21/23 sulfamethoxazole 800 1 tab PO BID biliary colic 3 days 04/21/23 mg-trimethoprim 160 mg tablet #6 tabs ondansetron 4 mg disintegrating 4 mg PO Q8H PRN 4 days #12 tabs 04/22/23 tablet oxycodone-acetaminophen 5 mg-325 1 tab PO Q8H PRN #10 tabs 04/22/23 mg tablet (Percocet) Previous Rx's Medication Instructions Recorded lisinopril 10 mg tablet 10 mg PO DAILY #90 tabs 02/23/23 rosuvastatin 20 mg tablet 20 mg PO DAILY #90 tabs 02/23/23 sulfamethoxazole 800 1 tab PO BID biliary colic 3 days 04/21/23 mg-trimethoprim 160 mg tablet #6 tabs ondansetron 4 mg disintegrating 4 mg PO Q8H PRN 4 days #12 tabs 04/22/23 tablet oxycodone-acetaminophen 5 mg-325 1 tab PO Q8H PRN #10 tabs 04/22/23 mg tablet (Percocet) Allergies Allergy/AdvReac Type Severity Reaction Status Date / Time Penicillins Allergy Intermediate Hives Verified 04/21/23 09:35 Review of Systems Constitutional Constitutional: Denies fatigue, Denies fever(s), Denies headache(s) and Denies weakness ENT Ears, Nose, Mouth, and Throat: Denies headache(s) Cardiovascular Cardiovascular: Denies chest pain and Denies dyspnea Respiratory Respiratory: Denies dyspnea Gastrointestinal Gastrointestinal: Reports abdominal pain, Denies diarrhea, Reports nausea and Reports vomiting Genitourinary Genitourinary: Denies dysuria Musculoskeletal Musculoskeletal: Denies back pain Integumentary/Breasts Skin/Breast: Denies rash Neurologic Neurologic: Denies headache(s) and Denies weakness Endocrine Endocrine: Denies fatigue PFSH All Active Problems (Updated 04/22/23 @ 12:01 by JAZLYN Parr) Biliary colic (Acute) Torus mandibularis (Acute) Exostosis, jaw (Acute ~01/2023) Family history of aortic stenosis (Acute) Hyperlipidemia (Acute) Primary hypertension (Acute) Onychomycosis (Acute) 12/08/22 [facility] D[facility] History of melanoma (Acute) Tobacco abuse (Acute) Macular degeneration (Acute) Medical History H/O anxiety disorder Amputated toe of right foot Surgical History H/O abdominoplasty H/O breast augmentation Family History Mother Cancer Diabetes Heart disease Hypertension Father Heart disease Brother Heart disease Sister Cancer Renal cancer Social History Smoking/Tobacco Use Status: Current every day Tobacco Type: cigarettes Tobacco: How many years used: 30 Quit status: considering quitting Smoking risk assessment performed?: Yes Alcohol Intake: current Alcohol Intake frequency: a few times a month Alcohol type: wine Counseling given: No Details: 1 glass of wine per day Drug use: Never Substance use type: does not use Adopted: No Caregiver/Support person: No Foster care: No Household members: spouse Housing: house Number of Children: 3 number of grandchildren: 3 Communication Needs: Corrective Lenses Education Level: vocational Do you need help understanding health information?: Never 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 Pets and animals: No Sexually active: Yes Do you think of yourself as: straight/heterosexual Current gender identity: female What is your relationship status?: How often do you talk on the phone with friends or family?: once per week Do you belong to any clubs or organized social groups?: no Panel score (0-1 are the most socially isolated patients): 1 What type of physical activity do you participate in: none Usha/Oriental Orthodox: Mormon Special usha needs: No Seatbelt use: always 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 Working smoke detector in home: Yes Carbon monox detector in home: Yes Do you feel safe at home: Yes Do you feel safe in your relationship?: Yes Victim of physical abuse: No Exam Const General: cooperative, healthy appearing, comfortable and no acute distress Orientation: alert and awake HENSC Head: normal to inspection, normocephalic and atraumatic Mouth: moist mucous membranes Eyes Conjunctivae: conjunctivae normal Neck Neck: normal visual inspection, trachea midline and supple Resp Effort & Inspection: normal respiratory effort and able to speak in complete sentences Auscultation: clear to auscultation bilaterally Cardio Rate: regular rate Rhythm: regular rhythm GI Inspection: normal to inspection Palpation: soft, not firm, not rigid and tender in the epigastrum, in the RUQ and Gilman's sign positive; with no rebound tenderness Auscultation: normal bowel sounds Back/Spine/Pelvis Back: no CVA tenderness and No back tenderness Skin General skin exam: no rashes or lesions noted Neuro General: patient alert, patient awake, moves all extremities and no focal motor deficits Cognition: normal cognition Sensory Exam: no sensory deficits noted Psych Appearance: grossly normal Mental Status: mental status grossly normal Course Vital Signs Vital signs: Vital Signs Pulse 97 H 04/22/23 09:25 Respiratory Rate 18 04/22/23 09:25 Blood Pressure 148/82 H 04/22/23 09:25 Pulse Oximetry 97 04/22/23 09:25 Pulse 97 H 04/22/23 09:25 Respiratory Rate 18 04/22/23 09:25 Blood Pressure 148/82 H 04/22/23 09:25 Blood Pressure Position Sitting 04/22/23 09:25 Pulse Oximetry 97 04/22/23 09:25 Oxygen Delivery Method Room Air 04/22/23 09:25 Oxygen Flow Rate 0 04/22/23 09:25 Medical Decision Making This is a 62-year-old female who presents to the ER now for ongoing epigastric and right upper quadrant pain that radiates to her right back as well as nausea and vomiting. Patient was here for the same yesterday and after extensive workup including laboratory values, CT, ultrasound, was diagnosed with biliary colic and had a surgical consultation. Patient was subsequently discharged home on Bactrim but states that she was not provided any analgesia or antiemetics. After going home her pain, nausea and dry heaving returned and she has been experiencing the same symptoms. She admits to a bland diet last night. Her symptoms are no worse than they were yesterday. She feels like she probably could have managed her symptoms today if her pain and nausea were better controlled. She was going to contact the surgical team today to discuss outpatient follow-up and elective cholecystectomy. Patient appears well, nontoxic, abdominal exam nonacute. She is hemodynamically stable. Plan to obtain IV access, give IV Zofran and morphine. Will obtain routine laboratory values and defer any advanced imaging until labs have resulted. Upon reevaluation patient reports that her symptoms are much improved, pain is now tolerable. No vomiting while under my care. White blood cell count 17.12 which is actually decreased from yesterday. Electrolytes are unremarkable. Creatinine 0.9 with a GFR of 71.83. Glucose 122. LFTs are unremarkable. Total bili of 0.6. AST 19 ALT 33 alk phosphatase 67 albumin 3.4 lipase 64. I discussed the case with surgery on-call, Dr. Anna, who was actually involved in the patient's care yesterday. Laboratory values do not look any more concerning than yesterday. Patient is now stating that her pain is well-controlled and is able to tolerate p.o. intake. No indication for emergent cholecystectomy. Will plan for the patient to contact the surgical suite later today to discuss outpatient follow-up and treatment options. Patient will continue taking the Bactrim prescribed yesterday and I will provide a prescription for oxycodone and Zofran. We did discuss biliary colic diet. Patient was encouraged to return immediately for new or evolving symptoms. Standard discharge and return precautions were provided. Patient understands, is agreeable to this plan, and has no additional questions or concerns upon discharge. This documentation was generated using [employer] system, please disregard any oddities of phrase or misspellings. Medical Records Medical records reviewed: Yes I reviewed the patient's medical records. Lab Data Lab results reviewed: Yes I reviewed the patient's lab results. Lab results narrative: Laboratory Tests Range/Units 04/22/23 04/22/23 09:49 10:06 WBC (4.4-10.8) 10^3/uL 17.12 H RBC (3.93-5.22) 10^6/uL 5.29 H Hgb (11.2-15.7) g/dL 14.0 Hct (36.0-46.0) % 43.5 MCV (80-95) fL 82 MCH (27.0-33.0) pg 26.5 L MCHC (32.0-36.0) % 32.2 RDW (11.7-14.6) % 14.0 Plt Count (130-400) 10^3/uL 271 MPV (8.0-11.0) fL 10.7 Immature Gran % 0.4 Neutrophils % 84.3 Lymphocytes % 7.5 Monocytes % 7.0 Eosinophils % 0.5 Basophils % 0.3 Nucleated RBC % (0.0-0.3) % 0.0 Absolute Neutrophils (1.2-6.7) 10^3/uL 14.43 H Absolute Lymphocytes (1.2-3.4) 10^3/uL 1.28 Absolute Monocytes (0.1-0.8) 10^3/uL 1.20 H Absolute Eosinophils (0.0-0.7) 10^3/uL 0.09 Absolute Basophils (0.0-0.2) 10^3/uL 0.05 Sodium (136-145) mmol/L 138 Potassium (3.5-5.1) mmol/L 4.1 Chloride (98-107) mmol/L 102 Carbon Dioxide (21.0-32.0) mmol/L 25.0 Anion Gap (3-11) mmol/L 11.0 BUN (7-18) mg/dL 11 Creatinine (0.55-1.02) mg/dL 0.9 Est GFR (CKD-EPI 2020) (mL/min/1.73m2) 71.83 Glucose (74-106) mg/dL 122 H Calcium (8.5-10.1) mg/dL 9.2 Total Bilirubin (0.2-1.0) mg/dL 0.6 AST (15-37) U/L 19 ALT (14-59) U/L 33 Alkaline Phosphatase (46-116) U/L 67 Total Protein (6.4-8.2) g/dL 7.5 Albumin (3.4-5.0) g/dL 3.4 Lipase (16-77) U/L 64 Urine Color (Yellow) Yellow Urine Clarity (Clear) Clear Urine pH (5-8) 7.0 Ur Specific [place] (1.005-1.025) <= 1.005 Urine Protein (Negative) mg/dL Negative Urine Ketones (Negative) mg/dL Negative Urine Blood (Negative) Negative Urine Nitrite (Negative) Negative Urine Bilirubin (Negative) Negative Urine Urobilinogen (Up to 0.2) mg/dL 0.2 Ur Leukocyte Esterase (Negative) Negative Urine Glucose (Negative) mg/dL Negative Quality:SDOH Health Related Social Needs: No Data to Display Discharge Plan Disposition Patient Disposition: Home Condition: Improving Discharge Details Clinical Impression: Biliary colic Primary Care Provider: Kiki Ames ED Provider: Rizwan Burnett [place] Meds and New Rx's Prescriptions: New ondansetron 4 mg tablet,disintegrating 4 mg PO Q8H PRN4 Days Qty: 12 0RF oxycodone-acetaminophen [Percocet] 5-325 mg tablet 1 tab PO Q8H PRNQty: 10 0RF Continued Zyrtec 10 mg capsule 10 mg PO DAILY PRN (Reason: allergies) PreserVision AREDS 2 Plus MV 200 mcg-15 mcg- 5 mg-1 mg capsule 1 cap PO DAILY Patient Comments: Pt states not taking ML 12/20/22 aspirin [Adult Aspirin Regimen] 81 mg tablet,delayed release (DR/EC) 81 mg PO DAILY cholecalciferol (vitamin D3) 50 mcg (2,000 unit) capsule 50 mcg PO DAILY cyanocobalamin (vitamin B-12) [Vitamin B-12] 250 mg PO DAILY lisinopril 10 mg tablet 10 mg PO DAILY Qty: 90 3RF rosuvastatin 20 mg tablet 20 mg PO DAILY Qty: 90 3RF sulfamethoxazole-trimethoprim 800-160 mg tablet 1 tab PO BID 3 Days Qty: 6 0RF Discharge Instructions Instructions: Biliary Colic (ED) Additional Instructions: Laboratory values did not look any worse than yesterday. Your biliary colic looks stable. I personally spoke with surgery, Dr. Anna, who is aware of your visit and comfortable with you being discharged. Please continue your biliary colic diet. Continue Bactrim as directed. I will add on a prescription for both Zofran for nausea and oxycodone for discomfort, take as directed. Remember oxycodone may cause drowsiness and constipation. Please watch for new or evolving symptoms and return immediately to the ER. Otherwise please contact the surgical office later today to discuss your need for outpatient reevaluation and elective cholecystectomy.
[2023-04-22 10:01] LABS: Bilirubin Negative (Negative); Blood Negative (Negative); Clarity Clear (Clear); Glucose Negative (Negative); Ketones Negative (Negative); Leukocyte Esterase Negative (Negative); Nitrite Negative (Negative); Specific Gravity <= 1.005 (1.005-1.025); Urobilinogen 0.2 mg/dL (Up to 0.2)
[2023-04-22 10:12] LABS: Abs Immature Grans 0.07 10^3/uL (0.0-0.06); Absolute Basophil Count 0.05 10^3/uL (0.0-0.2); Absolute Lymphocyte Count 1.28 10^3/uL (1.2-3.4); Basophils % 0.3; Eosinophils % 0.5; HCT 43.5 % (36.0-46.0); Immature Grans % 0.4; Lymphocytes % 7.5; MCH 26.5 pg (27.0-33.0); MCHC 32.2 % (32.0-36.0); MCV 82 fL (80-95); MPV 10.7 fL (8.0-11.0); Neutrophils % 84.3; Platelet Count 271 10^3/uL (130-400); RBC 5.29 10^6/uL (3.93-5.22); RDW-SD 41.9 fL; WBC 17.12 10^3/uL (4.4-10.8)
[2023-04-22] MEDS: Ondansetron 4 MG/2 ML VIAL (10:13)
[2023-04-22 10:24] LABS: Absolute Eosinophil Count 0.09 10^3/uL (0.0-0.7); Absolute Neutrophil Count 14.43 10^3/uL (1.2-6.7)
[2023-04-22 10:30] LABS: ALT 33 U/L (14-59); AST 19 U/L (15-37); Albumin 3.4 g/dL (3.4-5.0); Alkaline Phosphatase 67 U/L (46-116); BUN 11 mg/dL (7-18); Bilirubin, Total 0.6 mg/dL (0.2-1.0); CREATININE 0.9 mg/dL (0.55-1.02); Calcium 9.2 mg/dL (8.5-10.1); Chloride 102 mmol/L (98-107); Estimated GFR 71.83 (mL/min/1.73m2); Glucose 122 mg/dL (74-106); Lipase 64 U/L (16-77); Potassium 4.1 mmol/L (3.5-5.1); Sodium 138 mmol/L (136-145); Total Protein 7.5 g/dL (6.4-8.2)
[2023-04-22] MEDS: MORPHine 4 MG/ML SYR IVP (10:50)
== END 2023-04-22 12:18 | disposition home or self-care (01) ==
PROVIDERS: Emergency Provider Physician Assistant; PCP Nurse Practitioner
DX: K80.20 Calculus of gallbladder without cholecystitis without obstruction (principal); I10 Essential (primary) hypertension; F17.210 Nicotine dependence, cigarettes, uncomplicated; Z87.890 Personal history of sex reassignment
CPT/HCPCS: 80053; 83690; 96374; 99283; 81003; 85025; 99284; J2270; J2405

== ENCOUNTER 2023-04-23 21:16 | Inpatient (IN) | payer BC, SELFPAY ==
[2023-04-23 21:21] VITALS: BP 140/81; PULSE 119; RESP 20; TEMP 38.2; O2SAT 96
--- NOTE | 2023-04-23 21:45 | DI.RAD_ITS ---
Exam(s) XR CHEST 2V PA LATERAL EXAM: XR CHEST 2V PA LATERAL CLINICAL HISTORY: cough. TECHNIQUE: 2D digital imaging was performed. COMPARISON: CR XR CHEST 2V PA LATERAL from 12/20/[address] ABDOMEN PELVIS W from 04/21/2023 FINDINGS: 2 views: Heart size is normal. The mediastinum is not widened. Right lung is clear. Mild haziness over the left hemithorax noted on the frontal view without air br onchograms and no pleural effusions. This may be partially related to the left breast implant. Ther e are no infiltrates on the lateral view. IMPRESSION: No obvious acute pulmonary findings.If clinically indicated chest CT scan can be performed for added sensitivity. DATA REPOSITORY: RADIATION DOSE DELIVERED:
--- NOTE | 2023-04-23 21:50 | ED.GENADUL_ITS ---
HPI General Stated Complaint: Fever ROSA: 3 Date/Time Provider Initiated Documentation: 04/23/23 21:17. History of Present Illness abd pain fever moderate and severe 8 abdomen day(s) (4) constant No relieving factors improve symptom(s), No exacerbating factors reported cough NSAID Related Data Home Medications Medication Instructions Recorded Confirmed aspirin 81 mg tablet,delayed 81 mg PO DAILY 11/23/22 04/23/23 release (Adult Aspirin Regimen) cetirizine 10 mg capsule (Zyrtec) 10 mg PO DAILY PRN allergies 11/23/22 04/23/23 cholecalciferol (vitamin D3) 50 50 mcg PO DAILY 11/23/22 04/23/23 mcg (2,000 unit) capsule cyanocobalamin (vitamin B-12) 250 mg PO DAILY 11/23/22 04/23/23 [Vitamin B-12] mv-mn-folic 200 mcg-vit K 15 1 cap PO DAILY 11/23/22 04/23/23 mcg-lutein 5 mg-zeaxanthin 1 mg capsule (PreserVision AREDS 2 Plus Multivit) lisinopril 10 mg tablet 10 mg PO DAILY #90 tabs 02/23/23 04/23/23 rosuvastatin 20 mg tablet 20 mg PO DAILY #90 tabs 02/23/23 04/23/23 sulfamethoxazole 800 1 tab PO BID biliary colic 3 days 04/21/23 04/23/23 mg-trimethoprim 160 mg tablet #6 tabs ondansetron 4 mg disintegrating 4 mg PO Q8H PRN 4 days #12 tabs 04/22/23 04/23/23 tablet oxycodone-acetaminophen 5 mg-325 1 tab PO Q8H PRN #10 tabs 04/22/23 04/23/23 mg tablet (Percocet) Previous Rx's Medication Instructions Recorded lisinopril 10 mg tablet 10 mg PO DAILY #90 tabs 02/23/23 rosuvastatin 20 mg tablet 20 mg PO DAILY #90 tabs 02/23/23 sulfamethoxazole 800 1 tab PO BID biliary colic 3 days 04/21/23 mg-trimethoprim 160 mg tablet #6 tabs ondansetron 4 mg disintegrating 4 mg PO Q8H PRN 4 days #12 tabs 04/22/23 tablet oxycodone-acetaminophen 5 mg-325 1 tab PO Q8H PRN #10 tabs 04/22/23 mg tablet (Percocet) Allergies Allergy/AdvReac Type Severity Reaction Status Date / Time Penicillins Allergy Intermediate Hives Verified 04/23/23 21:24 Review of Systems Constitutional Constitutional: Reports chills, Reports fever(s) and Reports poor appetite Cardiovascular Cardiovascular: Denies chest pain and Denies dyspnea Respiratory Respiratory: Reports cough and Denies dyspnea Gastrointestinal Gastrointestinal: Reports abdominal pain, Reports nausea and Denies vomiting Genitourinary Genitourinary: Denies dysuria PFSH All Active Problems (Updated 04/23/23 @ 23:37 by Waqas Cantu NP) Cholecystitis, acute with cholelithiasis (Acute) Biliary colic (Acute) Torus mandibularis (Acute) Exostosis, jaw (Acute ~01/2023) Family history of aortic stenosis (Acute) Hyperlipidemia (Acute) Primary hypertension (Acute) Onychomycosis (Acute) 12/08/22 [facility] History of melanoma (Acute) Tobacco abuse (Acute) Macular degeneration (Acute) Medical History H/O anxiety disorder Amputated toe of right foot Surgical History H/O abdominoplasty H/O breast augmentation Family History Mother Cancer Diabetes Heart disease Hypertension Father Heart disease Brother Heart disease Sister Cancer Renal cancer Social History Smoking/Tobacco Use Status: Current every day Tobacco Type: cigarettes Tobacco: How many years used: 30 Quit status: considering quitting Smoking risk assessment performed?: Yes Alcohol Intake: current Alcohol Intake frequency: a few times a month Alcohol type: wine Counseling given: No Details: 1 glass of wine per day Drug use: Never Substance use type: does not use Adopted: No Caregiver/Support person: No Foster care: No Household members: spouse Housing: apartment Number of Children: 3 number of grandchildren: 3 Communication Needs: Corrective Lenses Education Level: vocational Do you need help understanding health information?: Never 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 Pets and animals: No Sexually active: Yes Do you think of yourself as: straight/heterosexual Current gender identity: female What is your relationship status?: How often do you talk on the phone with friends or family?: once per week Do you belong to any clubs or organized social groups?: no Panel score (0-1 are the most socially isolated patients): 1 What type of physical activity do you participate in: none Usha/Gnosticism: Zoroastrian Special usha needs: No Seatbelt use: always 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 Working smoke detector in home: Yes Carbon monox detector in home: Yes Do you feel safe at home: Yes Do you feel safe in your relationship?: Yes Victim of physical abuse: No Exam Const General: cooperative Orientation: alert, awake and oriented x3 Resp Effort & Inspection: normal respiratory effort and able to speak in complete sentences Auscultation: clear to auscultation bilaterally Cardio Rate: tachycardic Rhythm: regular rhythm Heart Sounds: S1 normal and S2 normal GI Palpation: soft, not firm, guarding in the RUQ, no masses, no pulsatile masses, not rigid, no splenomegaly and tender in the RUQ and Gilman's sign positive Auscultation: normal bowel sounds Back/Spine/Pelvis Back: no CVA tenderness Neuro General: patient alert, patient awake, patient oriented x3, gait normal and moves all extremities Course Vital Signs Vital signs: Vital Signs Temperature 38.2 C H 04/23/23 21:21 Pulse 119 H 04/23/23 21:21 Respiratory Rate 04/23/23 21:21 Blood Pressure 140/81 04/23/23 21:21 Pulse Oximetry 96 04/23/23 21:21 Temperature 38.2 C H 04/23/23 21:21 Temperature Source Oral 04/23/23 21:21 Pulse 119 H 04/23/23 21:21 Respiratory Rate 20 04/23/23 21:21 Blood Pressure 140/81 04/23/23 21:21 Blood Pressure Position Sitting 04/23/23 21:21 Pulse Oximetry 96 04/23/23 21:21 Oxygen Delivery Method Room Air 04/23/23 21:21 Oxygen Flow Rate 0 04/23/23 21:21 Pain Level 8 04/23/23 21:21 Medical Decision Making Patient presenting to the emergency department for chief complaint of fever mala g with abdominal pain. Patient reports on she was diagnosed with cholecystitis and was discharged to have follow-up on outpatient basis. Yesterday patient returned the emergency department due to worsening pain and discomfort which was able to be controlled and was also then discharged to continue outpatient follow-up. Patient is returning today given that she has now developed a fever and continued significant abdominal pain. She does report that she has had a cough for 2 weeks with no significant acute changes as well. Physical exam shows tachycardia patient is febrile, patient does have significant right upper quadrant tenderness and some guarding with palpation, clear lung sounds, patient is otherwise stable. No Tachypnea, patient is normotensive. Given recent diagnosis and fever I am concerned for acute cholecystitis that may need surgical intervention. There is also concern given cough of a pneumonia with referred pain, viral infection, or acute worsening of condition. Will plan on checking patient's labs, chest x-ray, viral pathogen panel, will give acetaminophen, hydromorphone, and liter of fluids Review of labs show significant leukocytosis with white count of 22 which is significantly worse, neutrophils of 18, and monocytes of 1.8. Neutrophils are 84.6%. Lactate is within normal range of 1, CMP shows slightly low sodium, anion gap of 13.1, glucose of 114, albumin is low at 3.1 otherwise LFTs are slightly elevated compared to last 2 days but are within normal limits. Lipase is also within normal limits. Patient is negative for COVID flu RSV. Chest x-ray reviewed and shows no acute findings to suggest pneumonia. Given all these findings and recent studies that were reviewed that did show subtle acute cholecystitis I do feel this is high likelihood of cause of patient's discomfort. Will contact general surgeon. Spoke to general surgeon who is going to admit the patient for acute cholecystitis Lab Data Lab results reviewed: Yes I reviewed the patient's lab results. Quality:SDOH Health Related Social Needs: 2 Health related social needs material hardship Discharge Plan Disposition Patient Disposition: Admit to [facility] Discharge Details Clinical Impression: Cholecystitis, acute with cholelithiasis Admit Date/Time: 04/23/23 23:20 Admit Provider: Ruben Ponce Attending Provider: Ruben Ponce Primary Care Provider: Kiki Ames ED Provider: Waqas Cantu Discharge Data Discharge Date/Time-TO BE ENTERED AT DEPARTURE: 04/24/23 00:16
[2023-04-23] MEDS: Normal Saline 1,000 ML 1000 ML IV (21:52)
[2023-04-23 21:54] LABS: Abs Immature Grans 0.13 10^3/uL (0.0-0.06); Absolute Monocyte Count 1.87 10^3/uL (0.1-0.8); Basophils % 0.3; Eosinophils % 0.6; HCT 42.4 % (36.0-46.0); HGB 13.6 g/dL (11.2-15.7); Immature Grans % 0.6; Lymphocytes % 5.5; MCH 26.3 pg (27.0-33.0); MCHC 32.1 % (32.0-36.0); MCV 82 fL (80-95); MPV 10.7 fL (8.0-11.0); Monocytes % 8.4; Neutrophils % 84.6; Platelet Count 311 10^3/uL (130-400); RBC 5.18 10^6/uL (3.93-5.22); RDW 13.9 % (11.7-14.6); RDW-SD 41.3 fL; WBC 22.21 10^3/uL (4.4-10.8)
[2023-04-23] MEDS: ACETAMINOPHEN 1,000 MG/100 ML BTL 400 MG IVPB (22:04)
[2023-04-23] MEDS: HYDROmorphone 2 MG/ML SYR 1 MG IVP (22:04)
[2023-04-23 22:06] LABS: Absolute Basophil Count 0.07 10^3/uL (0.0-0.2); Absolute Eosinophil Count 0.13 10^3/uL (0.0-0.7); Absolute Lymphocyte Count 1.22 10^3/uL (1.2-3.4); Absolute Neutrophil Count 18.79 10^3/uL (1.2-6.7); Diff Comment Agrees w/ Instrument; RBC Morphology Normal
[2023-04-23 22:07] LABS: Lipase 36 U/L (16-77)
[2023-04-23 22:10] LABS: ALT 53 U/L (14-59); AST 31 U/L (15-37); Albumin 3.1 g/dL (3.4-5.0); Alkaline Phosphatase 112 U/L (46-116); Anion Gap 13.1 mmol/L (3-11); BUN 13 mg/dL (7-18); Bilirubin, Total 0.5 mg/dL (0.2-1.0); CO2 22.9 mmol/L (21.0-32.0); Calcium 9.2 mg/dL (8.5-10.1); Chloride 99 mmol/L (98-107); Glucose 114 mg/dL (74-106); Magnesium 2.1 mg/dL (1.8-2.4); Potassium 4.1 mmol/L (3.5-5.1); Sodium 135 mmol/L (136-145); Total Protein 7.7 g/dL (6.4-8.2)
[2023-04-23 22:30] LABS: COVID-19 PCR Negative (Negative); Influenza A PCR Negative (Negative); Influenza B PCR Negative (Negative); RSV PCR Negative (Negative)
[2023-04-23 22:31] LABS: Source Nasopharynx
--- NOTE | 2023-04-23 22:45 | DI.VRAD_ITS ---
PROCEDURE INFORMATION: Exam: XR Chest Exam date and time: 04/23/2023 10:15 PM Age: 62 years old Clinical indication: Cough and fever TECHNIQUE: Imaging protocol: Radiologic exam of the chest. Views: 2 views. COMPARISON: CR XR CHEST 2V PA LATERAL 12/20/2022 3:54 PM FINDINGS: Lungs: No acute lung infiltrates. No edema. Pleural spaces: No pleural effusion. Heart/Mediastinum: Normal heart size. Bones/joints: No acute skeletal change. IMPRESSION: 1. No acute infiltrates or pleural changes. 2. Stable exam since 12/20/2022. Dictated and Authenticated by: Spencer Dahl MD. Ordering:MELVIN Alan MD
--- NOTE | 2023-04-23 23:12 | W.SURGCON ---
Date of service: 04/23/23 Time of Service: 23:13 Assessment and Plan Assessment and plan (1) Cholecystitis, acute with cholelithiasis: Status: Acute Assessment and plan: 62 yo woman with acute cholecystitis by her story, based on the clinical exams already in her chart, based on the radiographic imaging already done and supported with derranged labwork. She is tachycardic and needs resuscitation. PLAN: Admit IV Abx IVF resuscitation Analgesia prn Laparoscopic cholecystectomy in next 24-36 hours after resuscitation History of Present Illness Narrative: Called by ED provider. History and physical per provider: 62 yo woman seen in the ED 3 times over last 3 days for abdominal pain. Imaging from the first visit shows cholecystitis. She had a leukocytosis of 18 with an 87% shift that day. Abdominal exams in the chart state positive bryan sign. She now is having fevers, tachycardic, WBC of 22, and worsening pain. PFSH All Active Problems (Updated 04/23/23 @ 23:15 by Ruben Ponce MD) Cholecystitis, acute with cholelithiasis (Acute) Biliary colic (Acute) Torus mandibularis (Acute) Exostosis, jaw (Acute ~01/2023) Family history of aortic stenosis (Acute) Hyperlipidemia (Acute) Primary hypertension (Acute) Onychomycosis (Acute) 12/08/22 [facility] History of melanoma (Acute) Tobacco abuse (Acute) Macular degeneration (Acute) Medical History H/O anxiety disorder Amputated toe of right foot Surgical History H/O abdominoplasty H/O breast augmentation Family History Mother Cancer Diabetes Heart disease Hypertension Father Heart disease Brother Heart disease Sister Cancer Renal cancer Social History Smoking/Tobacco Use Status: Current every day Tobacco Type: cigarettes Tobacco: How many years used: 30 Quit status: considering quitting Smoking risk assessment performed?: Yes Alcohol Intake: current Alcohol Intake frequency: a few times a month Alcohol type: wine Counseling given: No Details: 1 glass of wine per day Drug use: Never Substance use type: does not use Adopted: No Caregiver/Support person: No Foster care: No Household members: spouse Housing: house Number of Children: 3 number of grandchildren: 3 Communication Needs: Corrective Lenses Education Level: vocational Do you need help understanding health information?: Never 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 Pets and animals: No Sexually active: Yes Do you think of yourself as: straight/heterosexual Current gender identity: female What is your relationship status?: How often do you talk on the phone with friends or family?: once per week Do you belong to any clubs or organized social groups?: no Panel score (0-1 are the most socially isolated patients): 1 What type of physical activity do you participate in: none Usha/Hindu: Confucianist Special usha needs: No Seatbelt use: always Drive 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 or ride 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 Working smoke detector in home: Yes Carbon monox detector in home: Yes Do you feel safe at home: Yes Do you feel safe in your relationship?: Yes Victim of physical abuse: No Exam Narrative Exam Narrative: phone consult Results Last Vital Signs Temp 100.8 F H 04/23/23 21:21 Pulse 119 H 04/23/23 21:21 Resp 20 04/23/23 21:21 BP 140/81 04/23/23 21:21 Pulse Ox 96 04/23/23 21:21 Labs 04/23/23 21:47 04/23/23 21:47 Labs: Laboratory Results - last 24 hr 04/23/23 04/23/23 21:42 21:47 WBC 22.21 H RBC 5.18 Hgb 13.6 Hct 42.4 MCV 82 MCH 26.3 L MCHC 32.1 RDW 13.9 Plt Count 311 MPV 10.7 Immature Gran % 0.6 Neutrophils % 84.6 Lymphocytes % 5.5 Monocytes % 8.4 Eosinophils % 0.6 Basophils % 0.3 Nucleated RBC % 0.0 Absolute Neutrophils 18.79 H Absolute Lymphocytes 1.22 Absolute Monocytes 1.87 H Absolute Eosinophils 0.13 Absolute Basophils 0.07 RBC Morphology Normal VBG Lactate 1.0 Sodium 135 L Potassium 4.1 Chloride 99 Carbon Dioxide 22.9 Anion Gap 13.1 H BUN 13 Creatinine 1.0 Est GFR (CKD-EPI 2020) 63.30 Glucose 114 H Calcium 9.2 Magnesium 2.1 Total Bilirubin 0.5 AST 31 ALT 53 Alkaline Phosphatase 112 Total Protein 7.7 Albumin 3.1 L Lipase 36 COVID-19 Source Nasopharynx SARS-CoV-2 (PCR) Negative Influenza Type A (PCR) Negative Influenza Type B (PCR) Negative RSV (PCR) Negative
[2023-04-24 00:20] VITALS: BP 110/70; PULSE 84; RESP 16; TEMP 36.8; O2SAT 96
[2023-04-24 00:21] VITALS: BP 110/70; PULSE 87; RESP 16; TEMP 36.8; O2SAT 97
[2023-04-24] MEDS: Lactated Ringers 1,000 ML 1000 ML IV (01:07)
[2023-04-24] MEDS: Normal Saline Flush 10 ML SYR IVP ×5 (01:08→22:08)
[2023-04-24] MEDS: MEROPENEM 1 GM in Normal Saline 100 ML IVPB ×3 (01:09→23:58)
[2023-04-24 01:13] LABS: Bilirubin Moderate (Negative); Blood Negative (Negative); Clarity Clear (Clear); Glucose Negative (Negative); Ketones 80 mg/dL (Negative); Leukocyte Esterase Negative (Negative); Nitrite Negative (Negative)
[2023-04-24 01:18] LABS: Bacteria Rare HPF (Negative); C & S Indicated? No; Casts Negative LPF (Negative); Crystals Negative HPF (Negative); Epithelial Cells Few HPF (Negative); Mucus Trace (Negative); RBC Negative HPF (0-2); WBC Negative HPF (0-5)
[2023-04-24] MEDS: Lactated Ringers 1,000 ML 125 ML IV (02:10)
[2023-04-24] MEDS: MORPHine 2 MG/ML SYR IVP (06:14)
[2023-04-24 06:44] LABS: Abs Immature Grans 0.14 10^3/uL (0.0-0.06); Absolute Basophil Count 0.06 10^3/uL (0.0-0.2); Absolute Eosinophil Count 0.13 10^3/uL (0.0-0.7); Absolute Neutrophil Count 15.02 10^3/uL (1.2-6.7); Basophils % 0.3; Eosinophils % 0.7; HCT 38.3 % (36.0-46.0); HGB 12.2 g/dL (11.2-15.7); Immature Grans % 0.8; Lymphocytes % 7.7; MCH 26.8 pg (27.0-33.0); MCHC 31.9 % (32.0-36.0); MCV 84 fL (80-95); MPV 11.2 fL (8.0-11.0); Monocytes % 8.7; Neutrophils % 81.8; Platelet Count 264 10^3/uL (130-400); RBC 4.56 10^6/uL (3.93-5.22); RDW 14.2 % (11.7-14.6); RDW-SD 43.7 fL; WBC 18.36 10^3/uL (4.4-10.8)
[2023-04-24 06:54] LABS: Absolute Lymphocyte Count 1.41 10^3/uL (1.2-3.4)
[2023-04-24 07:03] LABS: ALT 79 U/L (14-59); AST 60 U/L (15-37); Albumin 2.4 g/dL (3.4-5.0); Alkaline Phosphatase 142 U/L (46-116); Anion Gap 8.8 mmol/L (3-11); BUN 10 mg/dL (7-18); Bilirubin, Total 0.5 mg/dL (0.2-1.0); CO2 26.2 mmol/L (21.0-32.0); CREATININE 0.9 mg/dL (0.55-1.02); Calcium 8.5 mg/dL (8.5-10.1); Chloride 103 mmol/L (98-107); Estimated GFR 71.83 (mL/min/1.73m2); Glucose 91 mg/dL (74-106); Potassium 4.3 mmol/L (3.5-5.1); Sodium 138 mmol/L (136-145); Total Protein 6.4 g/dL (6.4-8.2)
[2023-04-24 07:06] LABS: Diff Comment Diff Reviewed; RBC Morphology Normal
[2023-04-24 07:18] VITALS: BP 127/77; PULSE 80; RESP 16; TEMP 37.7; O2SAT 96
--- NOTE | 2023-04-24 08:08 | PGE_ITS ---
Date of Service Date of service: 04/24/23 Time of Service: 09:20 Assessment and Plan Assessment and plan (1) Cholecystitis, acute with cholelithiasis: Status: Acute Assessment and plan: 62-year-old woman with acute cholecystitis clinically and radiographically. She is responding nicely to resuscitation and IV antibiotics and is now hemodynamically stable with her tachycardia having resolved. Her lab work is improving in response to resuscitation and IV antibiotics. Subjectively she endorses improvement. Overall plan: Will continue to resuscitate her throughout the day today, continue to administer IV antibiotics as well as IV analgesia and I'll put her on the OR schedule for tomorrow morning. Laparoscopic cholecystectomy Probable discharge after her surgery DVT prophylaxis Subjective Subjective Interval history since last seen: At the bedside the patient endorses some mild improvement. No fevers overnight. Her heart rate has normalized. She still has pain but it is somewhat less than before. The narcotic pain medication is working adequately. She says her symptoms have been going on since Tuesday night (3 full days) and have not improved at all at any given point. She does say there is some waxing and waning of pain on and off but essentially since the initial night, she has had persistent and constant pain. She thinks she may have had a gallbladder attack a month or 2 ago but it only lasted for couple of hours. She has never had intra-abdominal surgery. She has had a tummy tuck. Exam Narrative Exam Narrative: General: Interactive, not toxic and overall pretty comfortable. (She has been getting narcotic analgesia) Neuro: Alert and oriented x 3 Psych: Upbeat mood and affect, pleasant and cooperative and interactive, good insight and understanding into her condition Chest: Nonlabored breathing Heart: Regular(Tachycardia has resolved) Abdomen: Soft, nondistended, significantly tender in the right upper quadrant with a positive Gilman sign. Objective Last Vital Signs Temp 99.9 F H 04/24/23 07:18 Pulse 80 04/24/23 07:18 Resp 16 04/24/23 07:18 BP 127/77 04/24/23 07:18 Pulse Ox 96 04/24/23 07:18 Laboratory Results - last 24 hr 04/23/23 04/23/23 04/24/23 21:42 21:47 01:02 WBC 22.21 H RBC 5.18 Hgb 13.6 Hct 42.4 MCV 82 MCH 26.3 L MCHC 32.1 RDW 13.9 Plt Count 311 MPV 10.7 Immature Gran % 0.6 Neutrophils % 84.6 Lymphocytes % 5.5 Monocytes % 8.4 Eosinophils % 0.6 Basophils % 0.3 Nucleated RBC % 0.0 Absolute Neutrophils 18.79 H Absolute Lymphocytes 1.22 Absolute Monocytes 1.87 H Absolute Eosinophils 0.13 Absolute Basophils 0.07 RBC Morphology Normal VBG Lactate 1.0 Sodium 135 L Potassium 4.1 Chloride 99 Carbon Dioxide 22.9 Anion Gap 13.1 H BUN 13 Creatinine 1.0 Est GFR (CKD-EPI 2020) 63.30 Glucose 114 H Calcium 9.2 Magnesium 2.1 Total Bilirubin 0.5 AST 31 ALT 53 Alkaline Phosphatase 112 Total Protein 7.7 Albumin 3.1 L Lipase 36 Urine Color Yellow Urine Clarity Clear Urine pH 6.0 Ur Specific [place] 1.020 Urine Protein Trace H Urine Ketones 80 H Urine Blood Negative Urine Nitrite Negative Urine Bilirubin Moderate H Urine Urobilinogen 4.0 H Ur Leukocyte Esterase Negative Urine RBC Negative Urine WBC Negative Ur Epithelial Cells Few Urine Crystals Negative Urine Bacteria Rare Urine Casts Negative Urine Mucus Trace Ur Culture Indicated? No Urine Glucose Negative COVID-19 Source Nasopharynx SARS-CoV-2 (PCR) Negative Influenza Type A (PCR) Negative Influenza Type B (PCR) Negative RSV (PCR) Negative 04/24/23 06:01 WBC 18.36 H RBC 4.56 Hgb 12.2 Hct 38.3 MCV 84 MCH 26.8 L MCHC 31.9 L RDW 14.2 Plt Count 264 MPV 11.2 H Immature Gran % 0.8 Neutrophils % 81.8 Lymphocytes % 7.7 Monocytes % 8.7 Eosinophils % 0.7 Basophils % 0.3 Nucleated RBC % 0.0 Absolute Neutrophils 15.02 H Absolute Lymphocytes 1.41 Absolute Monocytes 1.60 H Absolute Eosinophils 0.13 Absolute Basophils 0.06 RBC Morphology Normal VBG Lactate Sodium 138 Potassium 4.3 Chloride 103 Carbon Dioxide 26.2 Anion Gap 8.8 BUN 10 Creatinine 0.9 Est GFR (CKD-EPI 2020) 71.83 Glucose 91 Calcium 8.5 Magnesium Total Bilirubin 0.5 AST 60 H ALT 79 H Alkaline Phosphatase 142 H Total Protein 6.4 Albumin 2.4 L Lipase Urine Color Urine Clarity Urine pH Ur Specific [place] Urine Protein Urine Ketones Urine Blood Urine Nitrite Urine Bilirubin Urine Urobilinogen Ur Leukocyte Esterase Urine RBC Urine WBC Ur Epithelial Cells Urine Crystals Urine Bacteria Urine Casts Urine Mucus Ur Culture Indicated? Urine Glucose COVID-19 Source SARS-CoV-2 (PCR) Influenza Type A (PCR) Influenza Type B (PCR) RSV (PCR) PAWSS Have you Been Recently Intoxicated or Drunk Within the Last 30 days?: No Have you Ever Experienced Previous Episodes of Alcohol Withdrawal?: No Have you ever Experienced Withdrawal Seizures?: No Have you ever Experienced Delirium Tremens(DT)s?: No Have you ever undergone Alcohol Rehabilitation Treatment (i.e, inpt ot outpatient treatment programs)?: No Have you ever Experienced Blackouts?: No Have you ever Combined Alcohol with other Downers within the last 90 days?: No Have you ever Combined Alcohol with any other Substance of Abuse during the last 90 days?: No Positive Blood Alcohol level on Presentation? [PCS.BAL]: No Evidence of Increased Autonomic Activity (i.e. HR>120, tremor, sweating, agitation, nausea)?: No Result: 0 Time Spent with Patient Time Spent with Patient: <25 minutes Time was spent: preparing to see the patient(eg.review tests), ordering medications,tests, procedures, indepentently interpreting results, counseling the patient and care coordination
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
[2023-04-24] MEDS: Enoxaparin 40 MG/0.4 ML SYR SC (10:13)
[2023-04-24] MEDS: POTASSIUM CHLORIDE/D5-0.45NACL 1,000 ML 125 MEQ IV ×2 (10:41→21:58)
[2023-04-24] MEDS: HYDROmorphone 2 MG/ML SYR 1 MG IVP ×3 (10:44→22:08)
[2023-04-24] MEDS: ACETAMINOPHEN 1,000 MG/100 ML BTL 400 MG IVPB ×2 (11:01→17:38)
[2023-04-24 15:28] VITALS: BP 122/77; PULSE 78; RESP 18; TEMP 37.6; O2SAT 93
[2023-04-24 23:38] VITALS: BP 117/76; PULSE 73; RESP 18; TEMP 37.6; O2SAT 95
[2023-04-25] VITALS (10 sets, daily range): BP systolic 111–138; BP diastolic 61–89; PULSE 65–73; RESP 17–29; TEMP 36.4–37.3; O2SAT 93–99; BMI 32.8
[2023-04-25] MEDS: ACETAMINOPHEN 1,000 MG/100 ML BTL 400 MG IVPB ×2 (00:37→06:09)
[2023-04-25] MEDS: HYDROmorphone 2 MG/ML SYR 1 MG IVP ×2 (05:03→10:01)
[2023-04-25] MEDS: POTASSIUM CHLORIDE/D5-0.45NACL 1,000 ML 125 MEQ IV (06:32)
[2023-04-25] MEDS: MEROPENEM 1 GM in Normal Saline 100 ML IVPB (08:17)
--- NOTE | 2023-04-25 08:50 | PDOC.CMPRO ---
Date of service: 04/25/23 Time of Service: 08:51 Care Management Progress Note Progress Note Text Progress Note Text: S/O: A: Jazmyn is a 62 year old woman admitted on 04/23/23 with acute cholecystitis P:Anticipate Jazmyn will be discharged home with no new services when medically cleared by surgeon. She will follow up with her surgeon and PCP and transport with family. CM will follow and continue to assess for discharge needs.
--- NOTE | 2023-04-25 09:20 | W.PM.PROGNOT ---
Date of Service Date of service: 04/25/23 Time of Service: 10:00 Assessment and Plan Assessment and plan (1) Cholecystitis, acute with cholelithiasis: Status: Acute Assessment and plan: 62-year-old woman with acute cholecystitis. Hemodynamically stable. We talked again about operative intervention, gallbladder function and the role for surgery and answered all of the questions of her and her at the bedside. They agree with the indications, the low but possible risks as well as the likely benefits of surgery and want to proceed. Plan: Laparoscopic cholecystectomy Subjective Subjective Interval history since last seen: Overnight no clinical changes or events. At the bedside she still endorses some abdominal discomfort. No more fevers. Exam Narrative Exam Narrative: General: Nontoxic, slightly uncomfortable but interactive Neuro: Alert and oriented x 3 Psych: Good mood and affect, good insight and understanding into her condition Chest: Nonlabored breathing, no wheezing Heart: Regular Objective Last Vital Signs Temp 99.1 F 04/25/23 07:40 Pulse 68 04/25/23 07:40 Resp 17 04/25/23 07:40 BP 118/68 04/25/23 07:40 Pulse Ox 96 04/25/23 07:40 PAWSS Have you Been Recently Intoxicated or Drunk Within the Last 30 days?: No Have you Ever Experienced Previous Episodes of Alcohol Withdrawal?: No Have you ever Experienced Withdrawal Seizures?: No Have you ever Experienced Delirium Tremens(DT)s?: No Have you ever undergone Alcohol Rehabilitation Treatment (i.e, inpt ot outpatient treatment programs)?: No Have you ever Experienced Blackouts?: No Have you ever Combined Alcohol with other Downers within the last 90 days?: No Have you ever Combined Alcohol with any other Substance of Abuse during the last 90 days?: No Positive Blood Alcohol level on Presentation? [PCS.BAL]: No Evidence of Increased Autonomic Activity (i.e. HR>120, tremor, sweating, agitation, nausea)?: No Result: 0 Time Spent with Patient Time Spent with Patient: <25 minutes Time was spent: preparing to see the patient(eg.review tests), counseling the patient and care coordination
[2023-04-25] MEDS: Normal Saline Flush 10 ML SYR IVP (09:28)
--- NOTE | 2023-04-25 10:36 | ANES.PREOP_ITS ---
General Info Date of Service Date Performed: 04/25/23 Height: 5 ft 3 in Weight: 83.915 kg Body Mass Index (BMI): 32.8 Surgical Procedure: Operation Date: 04/25/23 11:10 Proposed Procedure Side Surgeon p Cholecystectomy Laparoscopic Ruben Ponce MD Meds Allergies and Home Medications Allergies Allergy/AdvReac Type Severity Reaction Status Date / Time Penicillins Allergy Intermediate Hives Verified 04/23/23 21:24 Home Medication Medication Instructions Recorded aspirin 81 mg tablet,delayed 81 mg PO DAILY 11/23/22 release (Adult Aspirin Regimen) cetirizine 10 mg capsule (Zyrtec) 10 mg PO DAILY PRN allergies 11/23/22 cholecalciferol (vitamin D3) 50 50 mcg PO DAILY 11/23/22 mcg (2,000 unit) capsule cyanocobalamin (vitamin B-12) 250 mg PO DAILY 11/23/22 [Vitamin B-12] mv-mn-folic 200 mcg-vit K 15 1 cap PO DAILY 11/23/22 mcg-lutein 5 mg-zeaxanthin 1 mg capsule (PreserVision AREDS 2 Plus Multivit) lisinopril 10 mg tablet 10 mg PO DAILY #90 tabs 02/23/23 rosuvastatin 20 mg tablet 20 mg PO DAILY #90 tabs 02/23/23 sulfamethoxazole 800 1 tab PO BID biliary colic 3 days 04/21/23 mg-trimethoprim 160 mg tablet #6 tabs ondansetron 4 mg disintegrating 4 mg PO Q8H PRN 4 days #12 tabs 04/22/23 tablet oxycodone-acetaminophen 5 mg-325 1 tab PO Q8H PRN #10 tabs 04/22/23 mg tablet (Percocet) Current Visit Medications: Current Medications Generic Name Dose Route Start Last Admin Trade Name Freq PRN Reason Stop Dose Admin Aspirin 81 mg 04/25/23 08:30 04/25/23 09:28 Aspirin E.C. 81 Mg Tabec PO Not Given DAILY ADRIAN Enoxaparin Sodium 40 mg 04/24/23 08:00 04/25/23 09:28 Enoxaparin 40 Mg/0.4 Ml Syr SC Not Given Q24H ADRIAN Hydromorphone HCl 1 mg 04/24/23 09:19 04/25/23 10:01 Hydromorphone 2 Mg/Ml Syr IVP 1 mg Q3H PRN PRN Administration Meropenem 1 gm/ Sodium 100 mls @ 200 mls/hr 04/24/23 08:00 04/25/23 08:55 Chloride IVPB Infused Q8H ADRIAN Infusion Acetaminophen 1,000 mg in 100 mls @ 400 mls/hr 04/24/23 06:00 04/25/23 06:31 Ofirmev IVPB Infused Q6H ADRIAN Infusion Potassium Chloride/Sodium Chloride 1,000 mls @ 125 mls/hr 04/24/23 09:30 04/25/23 06:32 Kcl 20meq/D5-0.45% Nacl IV 125 mls/hr INFUSION ADRIAN Administration IV Miscellaneous Supplies 1 each 04/23/23 23:30 Iv Access IV DIRECTED ADRIAN Ondansetron HCl 4 mg 04/23/23 23:25 Ondansetron 4 Mg/2 Ml Vial IVP Q6H PRN PRN Sodium Chloride 0 ml 04/23/23 21:29 04/24/23 15:08 Normal Saline Flush 10 Ml Syr IVP 10 ml PRN PRN Administration Sodium Chloride 0 ml 04/24/23 08:30 04/25/23 09:28 Normal Saline Flush 10 Ml Syr IVP 20 ml BID ADRIAN Administration Sodium Chloride 0 ml 04/23/23 21:29 Normal Saline 10 Ml Vial IJ DIRECTED PRN PFSH Active Problems Active Problems: Problem Status Onset Code Cholecystitis, acute with cholelithiasis K80.00 Biliary colic K80.50 Torus mandibularis M27.0 Exostosis, jaw ~01/2023 M27.8 Family history of aortic stenosis Z82.49 Hyperlipidemia E78.5 Primary hypertension I10 Onychomycosis B35.1 History of melanoma Z85.820 Tobacco abuse Z72.0 Macular degeneration H35.30 Medical History Medical History H/O anxiety disorder Amputated toe of right foot Surgical History Surgical History H/O abdominoplasty H/O breast augmentation Tobacco Smoking/Tobacco Use Status: Current every day Tobacco Type: cigarettes Alcohol Alcohol Intake: current Alcohol intake frequency: a few times a month Alcohol type: wine Details: 1 glass of wine per day Substance Use Substance use: Never Substance use type: does not use Vital Signs and Lab Results Vital Signs Most Recent Vital Signs in EMR: Most Recent Vital Signs Temp Pulse Resp BP Pulse Ox 37.3 C 68 17 118/68 96 04/25/23 07:40 04/25/23 07:40 04/25/23 07:40 04/25/23 07:40 04/25/23 07:40 Lab Results 04/24/23 06:01 04/24/23 06:01 Blood Type / Crossmatch: 2 No Data to Display Complete Blood Count: 2 White Blood Count 18.36 10^3/uL (4.4-10.8) H 04/24/23 06:01 Red Blood Count 4.56 10^6/uL (3.93-5.22) 04/24/23 06:01 Hemoglobin 12.2 g/dL (11.2-15.7) 04/24/23 06:01 Hematocrit 38.3 % (36.0-46.0) 04/24/23 06:01 Platelet Count 264 10^3/uL (130-400) 04/24/23 06:01 Venous Blood Lactate 1.0 mmol/L (0.6-1.4) 04/23/23 21:47 Complete Metabolic Panel: 2 Sodium 138 mmol/L (136-145) 04/24/23 06:01 Potassium 4.3 mmol/L (3.5-5.1) 04/24/23 06:01 Chloride 103 mmol/L (98-107) 04/24/23 06:01 Carbon Dioxide 26.2 mmol/L (21.0-32.0) 04/24/23 06:01 BUN 10 mg/dL (7-18) 04/24/23 06:01 Creatinine 0.9 mg/dL (0.55-1.02) 04/24/23 06:01 Est GFR (CKD-EPI 2020) 71.83 (mL/min/1.73m2) 04/24/23 06:01 Magnesium 2.1 mg/dL (1.8-2.4) 04/23/23 21:47 Calcium 8.5 mg/dL (8.5-10.1) 04/24/23 06:01 Albumin 2.4 g/dL (3.4-5.0) L 04/24/23 06:01 Glucose 91 mg/dL (74-106) 04/24/23 06:01 C-Reactive Protein 0.93 mg/dL (0.0-0.3) H 04/21/23 10:00 Liver Function Panel: 2 Alanine Aminotransferase (ALT/SGPT) 79 U/L (14-59) H 04/24/23 0 6:01 Aspartate Amino Transf (AST/SGOT) 60 U/L (15-37) H 04/24/23 06: 01 Coagulation Panel: 2 No Data to Display Cardiac Panel: 2 Troponin I < 50 ng/L (< or =60) 04/21/23 Arterial Blood Gas: 2 No Data to Display Venous Blood Gas: 2 No Data to Display Pancreas Panel: 2 Lipase 36 U/L (16-77) 04/23/23 21:47 Thyroid Panel: 2 No Data to Display Infectious Disease: 2 Coronavirus (COVID-19)(PCR) Negative (Negative) 04/23/23 21:42 Coronavirus 2019 Source Nasopharynx 04/23/23 21:42 Influenza Virus Type A (PCR) Negative (Negative) 04/23/23 21:4 2 Influenza Virus Type B (PCR) Negative (Negative) 04/23/23 21:4 2 Respiratory Syncytial Virus (PCR) Negative (Negative) 04/23/23 21:42 Blood Cultures: 2 No Data to Display Toxicology Panel: 2 No Data to Display Imaging and Studies Imaging and Studies Study information below may be from another EMR and interpreted by another provider. Please see original notes in EMR for more complete details. EKG Summary: EKG PATIENT NAME: Jazmyn Kearney UNIT #: [id number] ORDERING PROVIDER: Cedric Clarke PRIMARY CARE PROVIDER: KIKI COTO NP DATE/TIME OF SERVICE: 04/21/23 1006 : 1960 PERFORMING LOCATION: ER APPROVED REPORT Exam: Resting ECG Reason for Exam: back chest pain Patient Location: E HR:76 bpm ECG Measurements Heart Rate 76 AXIS CO 156 P 53 QRSd 86 QRS 40 QT 388 T30 QTc 436 Conclusion Sinus rhythm...normal P axis, V-rate 60- 99 - <Electronically signed by DELFINO JOAQUIN MD in OV> E-Sign Date: 04/21/23 E-Sign Time: 1531 ADDENDUM APPROVED REPORT Exam: Resting ECG Reason for Exam: back chest pain Patient Location: E HR:76 bpm ECG Measurements Heart Rate 76 AXIS CO 156 P 53 QRSd 86 QRS 40 QT 388 T30 QTc 436 Conclusion Sinus rhythm...normal P axis, V-rate 60- 99 I have reviewed and I agree with the emergency room physician's ECG interpretation. Electronically signed by: <Electronically signed by Karen Rod M.D. in OV> 04/22/23 0837 Cosigned by: Stress Test Summary: STRESS TEST PATIENT NAME: Jazmyn Kearney UNIT #: [id number] ORDERING PROVIDER: Kiki Coto NP PRIMARY CARE PROVIDER: KIKI COTO NP DATE/TIME OF SERVICE: 12/02/22 ADMITTING PROVIDER: LYLY CISNEROS MD : 1960 APPROVED REPORT Exam: Exercise Treadmill Patient Location: Out-Patient Room/Bed: Stress Nurse: Irene Castrejon RN Ordering Provider:KIKI COTO, Contact Number: [phone] BMI: 32.41 Baseline Rhythm: Sinus Rhythm Indications: family history of heart disease, aortic valve stenosis, chest pain Medical History Medical History: Current smoker, hx melanoma, anxiety, murmur, ?HLD Cardiac Medications: Aspirin Allergies: Penicillins Cardiac Risk Factors: +family history, current everyday smoker, ?HLD Previous Cardiac Procedures: None Pretest Chest Pain Characteristics: None Exercise History: Indeterminate Physical Disabilities: None Lung Sounds: LCTA Heart Sounds: Regular Stress Test Details Test: Exercise stress testing was performed using a Isreal protocol. Rest Stress HR Resting HR Supine: 69 bpmMax Heart Rate (APMHR): 157 bpm Resting HR Standin bpmTarget HR (85% APMHR): 133 bpm Max HR Achieved: 141 bpm % of APMHR: 90 Recovery HR: 80 bpm HR response to stress: Normal HR response to stress BP Resting BP Supine: 123/72 mmHg Resting BP Standin/90 mmHg Max BP: 188/78 mmHg Recovery BP: 128/98 mmHg BP response to stress: Normal blood pressure response to stress. ECG Resting ECG: Sinus Rhythm Ectopy: None Stress ECG: Sinus Tachycardia ST Change: No significant ST segment changes noted Arrhythmia: None Recovery ECG: Sinus Rhythm Recovery ST Change: No significant ST segment changes noted Recovery Arrhythmia: Rare PAC Clinical Reason for Termination: Fatigue, Dyspnea Stress Symptoms: Dyspnea, General Fatigue Exercise duration: 6 min08 sec Highest Stage Reached: Stage 3: 3.4 mph at 14% grade. Exercise capacity: 7.25 METs Angina Score: None [place] Treadmill Score: 5.5 Rate Pressure Product: [id number] Stress ECG Conclusion 1. Resting electrocardiogram was within normal limits 2. Patient exercised on the Isreal protocol and completed a workload of 7.25 METS 3. Normal heart rate and blood pressure response to exercise. The patient achieved 90% of predicted heart rate for age 4. There was no electrocardiographic evidence of myocardial ischemia 5. There were no significant dysrhythmias [place] Treadmill Score is 5.5 which is Low risk. Stress Test Summary STAGETime (mins)Speed (mph)Grade (%)[id number] [id number]/72 Uudxxweh24595/90 [id number]/904.5 [id number] 1 min [id number]/78 3 min ttaqenic55545/64 6 min [id number]/68 - Dictated by: AMELIA SANTOSLYLY DAILY Dictated:: 12/02/22 0841 <Electronically signed by Lyly Cisneros M.D. in [place]> 12/02/22 0854 Transcribed Date: Transcribed Time: By: DAVID This is privileged, confidential information, intended only for the provider named. Any use or distribution by any person other than this provider is strictly prohibited. If you receive this report in error, please notify us immediately at [phone] and return the original report to us at the address above. Thank you. Echocardiogram Summary: Patient Name: Jazmyn Kearney Unit #: [id number] Loc: DI Ordering Provider: Kiki Coto NP Status: REG I Primary Care Provider: Kiki Coto NP Date of Exam: 12/24/22 Sex: F Admission Date: 12/24/22 : 1960 Age: 62 APPROVED REPORT EXAM: Comprehensive 2D, Doppler, and color-flow Echocardiogram Patient Location: Out-Patient Aerospace Mechanic: Angela Hyman RDCS (AE) Indications: Strong family history of aortic stenosis, cardiac murmur Other Information Study Quality: Adequate Conclusion Normal left ventricular wall thickness and chamber size. Ejection fraction is 55 to 60%. Wall motion is normal Normal right ventricular size and systolic function Both atria are normal in size Aortic valve is mildly sclerotic and trileaflet without stenosis or regurgitation Estimated right ventricular systolic pressure is 28 mmHg Wall motion Left Ventricle The left ventricle is normal size. The left ventricular systolic function is normal. The left ventricular ejection fraction is within the normal range. There is normal left ventricular wall thickness. There is normal LV segmental wall motion. There is no ventricular septal defect visualized. LVEF is 57%. Right Ventricle The right ventricle is normal size. The right ventricular systolic function is normal. Atria The left atrium size is normal. The right atrium size is normal. The interatrial septum is intact with no evidence for an atrial septal defect. Aortic Valve The Aortic valve is mildly sclerotic. Aortic valve is trileaflet. There is no aortic valvular stenosis. No aortic regurgitation is present. Mitral Valve The mitral valve is normal in structure. No evidence of mitral valve stenosis. Trace mitral regurgitation. Tricuspid Valve The tricuspid valve is normal in structure. There is no tricuspid valve stenosis. Trace tricuspid regurgitation. The RVSP is 27.7mmHg. Pulmonic Valve The pulmonary valve is normal in structure. There is no pulmonic valvular stenosis. There is no pulmonic valvular regurgitation. Great Vessels The aortic root is normal in size. The ascending aorta is normal in size. Descending aorta is normal in caliber. IVC is normal in size and collapses >50% with inspiration. Pericardium There is no pericardial effusion. 2D Dimensions IVSD d PLAX 0.85 cm F: 0.6-1.0Ao Root d 2.99 cm F: 2.7 - 3.3 LVPW d PLAX 0.84 cm F: 0.6 - 1.0Ao Asc Diam d 3.06 cm F: 2.3 - 3.1 LVID d PLAX 4.31 cm F: 3.8 - 5.2 LVDs 2.92 cm F: 2.2 - 3.5 LV EF Teichholz 60.9 % FS32.31 % LV EDV (Teich)83.5 mL LV ESV (Teich)32.7 mL M-Mode TAPSE 2.64 cm (M/F) >1.7 Auto EF LV EDV A4C66.3 mLLV EDV X5K977.4 mLLV EDV BP LV ESV A4C28.6 mLLV ESV A2C41.6 mLLV ESV BP LVEF(%) A4C56.9 %LVEF(%) A2C58.5 %LVEF(%) BP LV SV A4C37.7 mlLV SV A2C58.8 mlLV SV BP LV CO A4C2.3 L/minLV CO A2C3.7 L/minLV CO BP HR A4C61.84 BPMHR A2C63.61 BPMLV EDV Index (BP) LA Volume LA Length A4C4.6 cmLA Length A2C4.9 cm LA Area A4C s 16.34 cm2LA Area A2C s 14.38 cm2 LA Vol A4C A-L49.16 mLLA Vol A2C A-L36.07 mLLA Vol Biplane A-L43.3 mL LA Vol/BSA A4C A-LLA Vol/BSA A2C A-LLA Vol/BSA BP A-L 23.3 mL/m2 LA Vol A4C MOD46.5 mLLA Vol A2C MOD32.5 mLLA Vol BP MOD39.8 mL RA Volume RA Area A4C8.0 cm2RA ESV A4C (A-L)15.5mLRA Vol/BSA A4C A-L RA Length A4C3.5 cmRA ESV A4C (MOD)15.2mL LV Diastology MV E' medial0.069 (>0.07 m/s)MV E Vmax 0.80 (0.4-1.3 m/s) MV E/E' MED11.62 (<14)MV A Vmax 0.80 (0.4-1.3 m/s) MV E' lateral0.094 (>0.1 m/s)E/A Ratio 1.0 MV E/E' LAT8.52 (<14) MV E' Average0.081 m/s MV E/E'(average)9.83 Aortic Valve AoV Vmax1.53 m/sLVOT Vmax 1.09 m/s AoV Peak Grad9.3 mmHgLVOT Peak Grad 4.7 mmHg AoV Area (Vmax)1.96 pe6NTUR VTI0.251 m AoV VTI0.352 mLVOT Mean Grad 2.1 mmHg AoV Mean Dk.0.97 m/sLVOT SV 69.28 mL AoV Mean Grad4.5 mmHgLVOT Diam s 1.85 cm AoV Area (VTI)1.97 cm2 Velocity Ratio 0.71 Mitral Valve MV DT 198 (160-240 msec) MV Vmax TIPS 1.07 m/s MV Mean Grad 1.8 (<2mmHg) MV VTI 0.370 m Pulmonary Valve PV Vmax 0.98 (0.5-1.5 m/s)RVOT Vmax 0.63 m/s PV Peak Grad 3.9 mmHgRVOT Peak Gr.1.6 mmHg PV Mean Vel0.69 m/sRVOT VTI0.152 m PV Mean Grad 2.1 mmHgRVOT Mean Gr.0.8 mmHg Tricuspid Valve RA Pressure 3.00 mmHgTR Vmax 2.49 m/s TV S'0.10 m/sTR Peak Grad 24.7 mmHg RVSP (TR) 27.7 mmHg Ordered By: Kiki Coto NP CC: Dictated By: Lyly Cisneros M.D. 12/24/22 1440 <Electronically signed by Lyly Cisneros M.D. in [place]> 12/27/22 0815 Transcribed By: Lyly Cisneros MD This is privileged, confidential information intended only for the provider named. Any use or distribution by any person other than this provider is strictly prohibited. If you receive this report in error, please notify us immediately at [phone] and return the original report to us at the address above. Thank-you. Anesthesia Assessment and Plan Anesthesia History Personal History: No History of Anesthesia Complications Family History: No Family History of Anesthesia Complications Exercise Tolerance Exercise Tolerance: Metabolic Equivalents>4 Pertinent Negatives Pertinent Negatives: No Symptoms of GERD, No Major Cardiovascular Symptoms or Complaints and No History of CVA/TIA Cardiac & Pulmonary Exam Cardiac Exam: Normal S1/S2 Heart Sounds Pulmonary Exam: Active Cough or Cold Cardiac and Pulmonary Comment:: Bilateral crackles and self report cough 2 weeks Implantable Cardiac Device Does patient have a Pacemaker or an ICD?: No Airway Exam Known Difficult Airway: No Mallampati Class: 3 Mouth Opening: Normal (> 3cm) Thyromental Distance: Greater than 3 cm Neck Range of Motion: Full ROM Neck Circumference: Normal Teeth Condition: Normal Dentition ASA Classification ASA Score: ASA 2 (2e) Emergency Case?: Yes NPO Status NPO Status: NPO Clears >2 hours, Solids >8 hours Anesthesia Plan Resuscitation Status: Full Code Anesthesia Technique: General Anesthesia Airway Planned: Endotracheal Tube Monitors Used: Standard Monitors
--- NOTE | 2023-04-25 11:03 | NUR.NOTE ---
transported to OR via stretcher at 1100.
[2023-04-25] MEDS: Lactated Ringers 1,000 ML 30 ML IV (11:16)
[2023-04-25] MEDS: Heparin 5,000 UNITS/ML VIAL 5000 UNITS (11:30)
[2023-04-25] MEDS: Bupivacaine 0.25% Pres-Free 30 ML VIAL (11:52)
--- NOTE | 2023-04-25 12:44 | GB_PTH ---
PATIENT: Jazmyn Kearney LOC: U#:[id number] AGE/SX: 62/F ROOM: 207 RE04/23/[address]: Ruben Ponce : 1960 BED: A DIS: 04/25/2023 SPEC #: [id number] RECD: 04/25/23 16:02 STATUS: BHUPINDER ROUSE #: [id number] RITA: 04/25/23 12:[address]: Ruben Ponce DEPT: Surgical Specimen RECD BY: Maryan New ENTERED: 04/25/23 16:03 SP TYPE: GB OTHR DR: Kiki Ames APRN Tissues: 1 - GALLBLADDER Procedures: GROSS AND MICRO LEVEL 3 Comments: [id number]
--- NOTE | 2023-04-25 12:58 | ROE_ITS ---
Date of service: 04/25/23 Time of Service: 12:58 Operative Note Operative Note Refer to Anesthesia Record Procedure Description: Procedures performed: 1. Laparoscopic cholecystectomy Pre-op diagnosis: acute cholecystitis Postoperative diagnosis: gangrenous cholecystitis Surgeon: Tracy Ponce Anesthesia: Warehouse Team Member: Rizwan Indication for procedure: 62 yo woman with acute RUQ pain, N/V, gallbladder wall edema on cross-sectional imaging and leukocytosis of 22. FINDINGS: Tensely distended and diffusely inflamed gallbladder with severe wall edema and visible gangrenous changes. Reactive free fluid along pericolic g utter. Normal biliary anatomy. Specimens: 1. Gallbladder Complications: None Blood loss: 75cc Urine output: Not measured Implants/drains: None Procedure in detail: Patient gave written consent and was in agreement with the indications, the likely benefits as well as the potential risks of surgery. The patient was taken back to the operating room where anesthesia was administered which was tolerated well. The patient was supine on the table with arms outstretched and we then prepped and draped in sterile fashion. We confirmed DVT prophylaxis as well as antibiotics had been administered. When we were all in agreement with our timeout we started the procedure. Just above the umbilicus local anesthetic was injected. A 5 mm Optiview trocar was used to enter the abdomen through a small stab incision made in the midline. Insufflation was performed which was tolerated well. 2 more trocars were placed under direct visualization in the right upper quadrant as well as a 12 mm port in the epigastric/subxiphoid region, all placed after local anesthetic had been given at each site. The omentum and transverse colon were adherent to the gallbladder location. I noted free, reactive-appearing fluid along the right pericolic gutter. The liver does not appear cirrhotic. A combination of blunt dissection and electrocautery was used to free the omental adhesions away from the gallbladder. I was then able to bluntly sweep it free and completely expose it. It was tensely distended, very inflamed with gangrenous changes in the fundus. I was unable to grasp it but the wall ripped whenever attempts were made because of the inflammation. Using electrocautery I made a small hole at the top and suctioned out nonbilious, purulent fluid. Next I used a 5 mm tenaculum through and through the wall in order to retract it cephalad and towards the left shoulder. This maneuver nicely exposed the gallbladder plate and is able to start my dissection. Inflammation was severe and the pericholecystic fluid was diffuse. Careful blunt dissection was used after incising the peritoneum to gently clear off the entire cystic plate. We were finally able to clear off the entire plate such that only 2 structures were seen going into the gallbladder consistent with the critical view of safety. I placed 3 clips across the cystic duct and 2 clips across the cystic artery. The gallbladder was then removed off the liver bed with electrocautery. It was placed in an Endo Catch bag and removed from the abdomen. The gallbladder specimen was then passed off onto the back table. I checked the gallbladder fossa and liver bed for any oozing or bile leaks and hemostasis was found to be excellent and there is no bile leaking anywhere. I copiously irrigated the fascia as well as the paracolic gutter and lateral to the liver and only clear fluid remained and was suctioned free. Satisfied with hemostasis, I closed the fascia at the 12 mm port site with Vicryl using a Aqiulino-Simba and all the 5 mm ports were removed after evacuating pneumoperitoneum. The skin was closed with running Monocryl and Dermabond. The patient tolerated the procedure well. The sponge, instruments and sharps counts were correct x3 at the end of the procedure. The patient was extubated and taken to the PACU in hemodynamically stable condition.
--- NOTE | 2023-04-25 14:27 | W.ANESPOSTOP ---
Postoperative Evaluation Date, Time and Location Date Performed: 04/25/23 Time Performed: 14:03 Patient Location: PACU Vital Signs Most Recent Imported Vital Signs: Most Recent Vital Signs Temp Pulse Resp BP Pulse Ox 36.5 C 67 18 121/78 94 04/25/23 14:23 04/25/23 14:23 04/25/23 14:23 04/25/23 14:23 04/25/23 14:23 Pain Score Most Recent Pain Score: Most Recent Pain Score Pain Level 0 04/25/23 14:03 Assessment Mental Status: Awake (Alert & Oriented to Patient Baseline) Airway and Respiratory Function: Patent airway with normal (patient baseline) respiratory exam Cardiovascular Function: Hemodynamically Stable Hydration Status: Adequately Hydrated Nausea & Vomiting: No Nausea or Vomiting Pain: Pt. Denies Any Pain Peripheral Nerve Block: Patient did not receive a nerve block
--- NOTE | 2023-04-25 15:58 | W.PM.DS.N ---
Date of service: 04/25/23 Time of Service: 16:30 DS: Diagnosis Discharge Diagnosis (1) Cholecystitis, acute with cholelithiasis: Status: Acute Asessment and Plan: s/p Tony choe. TOREY home Discharge Plan Disposition Patient Disposition: Home Condition: Good Discharge Details Reason For Visit: acute cholecystitis Admit Date/Time: 04/23/23 23:20 Admit Provider: Ruben Ponce Attending Provider: Ruben Ponce Primary Care Provider: Kiki Ames Hospital Course Hospital Course: 62 yo woman presented to the ER after being sent home initially, with worsening abdominal pain. Prior imaging had showed gallbladder wall edema. She presented with tachycardia and a worsening leukocytosis of 22. She was admitted and resuscitated and placed on IV antibiotics. Over the next 24 hours her hemodynamics improved and she was then taken to the operating room where a gangrenous gallbladder was encountered. Laparoscopic cholecystectomy was performed. After her surgery she was feeling significant improvement and discharged home. Home Meds and New Rx's Prescriptions: No Action Zyrtec 10 mg capsule 10 mg PO DAILY PRN (Reason: allergies) PreserVision AREDS 2 Plus MV 200 mcg-15 mcg- 5 mg-1 mg capsule 1 cap PO DAILY Patient Comments: Pt states not taking ML 12/20/22 aspirin [Adult Aspirin Regimen] 81 mg tablet,delayed release (DR/EC) 81 mg PO DAILY cholecalciferol (vitamin D3) 50 mcg (2,000 unit) capsule 50 mcg PO DAILY cyanocobalamin (vitamin B-12) [Vitamin B-12] 250 mg PO DAILY lisinopril 10 mg tablet 10 mg PO DAILY Qty: 90 3RF rosuvastatin 20 mg tablet 20 mg PO DAILY Qty: 90 3RF ondansetron 4 mg tablet,disintegrating 4 mg PO Q8H PRN4 Days Qty: 12 0RF oxycodone-acetaminophen [Percocet] 5-325 mg tablet 1 tab PO Q8H PRNQty: 10 0RF sulfamethoxazole-trimethoprim 800-160 mg tablet 1 tab PO BID 3 Days Qty: 6 0RF Discharge Instructions Additional Instructions: Incisions: - Some bruising, swelling, pain and soreness is expected. Symptoms that are worsening are not expected and you should call Dr. Ponce. - Keep incisions clean and dry, but they do not need to be covered. It is okay to shower, but no tub bathing/swimming for one week from surgery date. Pat-dry the incision when drying. The glue will fall off in 5-7 days. You can remove it if it does not. - Call Dr. Ponce if you experience worsening pain, swelling, redness, pus, bleeding or fever>101. - Go to the Emergency Department for chest pain, shortness of breath, difficulty breathing or changes in mental status. For next few days: - Do not consume alcoholic beverages or other mood-altering drugs. - Avoid strenuous activity. - Call and schedule a followup appointment to be seen in next 2-3 weeks - If you are unable to urinate, or are only able to urinate tiny amounts, go to Emergency Department for assessment. Diet: - Eat and drink a low fat/bland diet, avoiding fried or greasy foods. Do this until cleared at followup. Medications: - Resume all of your regular home medications. Activity: - Light activity and work without any strenuous activity or heavy lifting until cleared at followup. Pain: - Take Tylenol on a schedule, 1000mg every 6 hours for 3 days. Use ice and/or heat as needed. - If you take any narcotic medication, do not drive, operate machinery and only use for severe pain. Take with a stool softener if you take any. For mild irritation at needle site where your iv was removed: ? Apply warm, moist pack to area for 20 minutes four times a day for 2-3 days. ? Call physician if persistent redness, increasing redness or fever and/or drainage at needle site occurs. If you have any problems, concerns or questions after surgery, do not hesitate to contact your physician's office or the Emergency Room if needed at [phone]. For emergencies, call 911. Dr. Ponce's office number for scheduling or non-emergent questions/concerns: Call [phone] Activity:: see instructions Equipment/Supplies:: No Equipment Needed Diet:: As Tolerated DS: Summary Time Spent with Patient providing and/or coordinating discharge services: Less than 30 minutes Status at Discharge Functional status at discharge: independent ambulation Overall status at discharge: patient is progressing back to baseline Mental Status: mental status grossly normal Speech and Movement: speech and movement normal Mood: congruent mood Affect: normal affect Quality:SDOH Health Related Social Needs: Health related social needs material hardship Exam Narrative Exam Narrative: stable, comfortable, ready for DC Psych Mental Status: mental status grossly normal Speech and Movement: speech and movement normal Mood: congruent mood Affect: normal affect DS: Data Vitals/I&O Vitals and I&O: Vital Signs Temperature 97.9 F 04/25/23 14:53 Temperature Source Tympanic 04/25/23 14:53 Pulse 65 04/25/23 14:53 Pulse Rhythm Regular 04/25/23 14:30 Respiratory Rate 18 04/25/23 14:53 Respiratory Effort Normal 04/25/23 14:30 Respiratory Depth Normal 04/25/23 14:30 Respiratory Pattern Normal 04/25/23 14:30 Blood Pressure 138/82 04/25/23 14:53 Blood Pressure Position Sitting 04/23/23 21:21 Pulse Oximetry 98 04/25/23 15:05 Respiratory End-tidal CO2 32 04/25/23 14:03 Oxygen Delivery Method Room Air 04/25/23 15:05 Oxygen Flow Rate 0 04/25/23 15:05 Pain Level 0 04/25/23 14:03 Comment TEMP called over radio 04/24/23 07:18 Intake & Output 04/24/23 04/25/23 04/25/23 23:59 11:59 23:59 Intake Total 2200 / 3400 1958.333 / 2908.333 950 / 2908.333 Output Total 600 / 1250 300 / 300 Balance 1600 / 2150 1658.333 / 2608.333 950 / 2608.333 Weight 185 lb Intake: IV 2200 / 3400 1958.333 / 2908.333 950 / 2908.333 Output: Urine 600 / 1250 300 / 300 Other: Urine Color Yellow Urine Appearance Clear Clear Urine Odor None Emesis Description None Voiding Methods Toilet Toilet PFSH All Active Problems (Updated 04/23/23 @ 23:37 by Waqas Cantu NP) Cholecystitis, acute with cholelithiasis (Acute) Biliary colic (Acute) Torus mandibularis (Acute) Exostosis, jaw (Acute ~01/2023) Family history of aortic stenosis (Acute) Hyperlipidemia (Acute) Primary hypertension (Acute) Onychomycosis (Acute) 12/08/22 [facility] History of melanoma (Acute) Tobacco abuse (Acute) Macular degeneration (Acute) Medical History H/O anxiety disorder Amputated toe of right foot Surgical History H/O abdominoplasty H/O breast augmentation Family History Mother Cancer Diabetes Heart disease Hypertension Father Heart disease Brother Heart disease Sister Cancer Renal cancer Social History Smoking/Tobacco Use Status: Current every day Tobacco Type: cigarettes Tobacco: How many years used: 30 Quit status: considering quitting Smoking risk assessment performed?: Yes Alcohol Intake: current Alcohol Intake frequency: a few times a month Alcohol type: wine Counseling given: No Details: 1 glass of wine per day Drug use: Never Substance use type: does not use Adopted: No Caregiver/Support person: No Foster care: No Household members: spouse Housing: apartment Number of Children: 3 number of grandchildren: 3 Communication Needs: Corrective Lenses Education Level: vocational Do you need help understanding health information?: Never 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 Pets and animals: No Sexually active: Yes Do you think of yourself as: straight/heterosexual Current gender identity: female What is your relationship status?: How often do you talk on the phone with friends or family?: once per week Do you belong to any clubs or organized social groups?: no Panel score (0-1 are the most socially isolated patients): 1 What type of physical activity do you participate in: none Usha/Orthodoxy: Rastafari Special usha needs: No Seatbelt use: always Drive intox or ride w/intox helper/driver: No Working smoke detector in home: Yes Carbon monox detector in home: Yes Do you feel safe at home: Yes Do you feel safe in your relationship?: Yes Victim of physical abuse: No Time Spent with Patient Time Spent with Patient: <45 minutes Time was spent: counseling the patient and care coordination
--- NOTE | 2023-04-25 16:34 | PDOC.CMDIS ---
Date of service: 04/25/23 Time of Service: 16:34 LACE Index Scoring Tool Questions: Length of Stay (in days): 2 Was the patient admitted via the E.D.?: Yes E.D. Visits: 4 Answers: Total Score: 9 Risk of Readmission: Low Risk Care Management Discharge Plan Reason for Hospitalization: acute cholecystitis Discharge Plan: Jazmyn will be discharged home with no new services. She will follow up with her surgeon and PCP and transport with family. Patient/Family Education Needs: Review of discharge instructions including diet, activity, limitations, follow up plan and discuss Ask Me Three. SDOH Health Related Social Needs: Health related social needs material hardship Health related social needs: material hardship(utilities)(Z59.87)
== END 2023-04-25 17:24 | disposition home or self-care (01) | DRG 419 ==
LOC: ER 23:43 → MS 04-24 04:16
PROVIDERS: Admitting Provider Student in an Organized Health Care Education/Training Program; Emergency Provider Nurse Practitioner Family; PCP Nurse Practitioner; Visit Provider Student in an Organized Health Care Education/Training Program
PROC: 0FT44ZZ Resection of Gallbladder, Percutaneous Endoscopic Approach (ICD-10-PCS; CPT 47562; principal; 2023-04-25 11:00)
DX: K80.12 Calculus of gallbladder with acute and chronic cholecystitis without obstruction (principal); K82.8 Other specified diseases of gallbladder; K82.A1 Gangrene of gallbladder in cholecystitis; I10 Essential (primary) hypertension; E78.5 Hyperlipidemia, unspecified; F17.210 Nicotine dependence, cigarettes, uncomplicated; B35.1 Tinea unguium; H35.30 Unspecified macular degeneration; Z89.421 Acquired absence of other right toe(s); M27.0 Developmental disorders of jaws; R00.0 Tachycardia, unspecified; Z79.899 Other long term (current) drug therapy; Z85.820 Personal history of malignant melanoma of skin
CPT/HCPCS: 47562; 00123; 36415; 80053; 83690; 87637; 96365; 96375; 99285; J1650; 71046; 81003; 81015; 83605; 83735; 85025; 88304; J0131; J0665; J1100; J1170; J1644; J1885; J2001; J2185; J2250; J2270; J2405; J2704; J3010; J3475

== ENCOUNTER 2023-07-01 03:43 | Outpatient (CLI) | payer BC, SELFPAY ==
[2023-07-01 11:31] LABS: Calculated LDL 65 mg/dL (<100); Cholesterol 157 mg/dL (<200); HDL Cholesterol 80 mg/dL (40-60); TSH (W/Ref FT4) 0.53 uIU/mL (0.36-3.74); Triglyceride 62 mg/dL (<150)
== END 2023-07-01 03:44 | disposition home or self-care (01) ==
LOC: LBO 03:43
PROVIDERS: PCP Nurse Practitioner; Visit Provider Nurse Practitioner
DX: E78.5 Hyperlipidemia, unspecified (principal); R53.83 Other fatigue
CPT/HCPCS: 36415; 80061; 84443

== ENCOUNTER 2023-11-20 18:15 | Emergency (ER) | payer BC, SELFPAY ==
[2023-11-20] VITALS (38 sets, daily range): BP systolic 105–163; BP diastolic 55–120; PULSE 58–81; RESP 11–31; TEMP 37.1; O2SAT 94–100
--- NOTE | 2023-11-20 18:30 | DI.CT_ITS ---
Exam(s) CT HEAD WO EXAM: CT HEAD WO CLINICAL HISTORY: fall head strike. TECHNIQUE: Imaging Protocol: Axial computed tomography images with coronal and sagittal reformatted images were created and reviewed COMPARISON: No exams were available for comparison FINDINGS: Ventricles and Extra axial spaces: Normal in size and morphology for the patient's age. Hemorrhage: There is a small amount of acute subarachnoid hemorrhage in the left sylvian fissure. Cerebral parenchyma: Normal. Midline shift: None. Brainstem/Cerebellum: Normal. Calvarium: Normal. Visualized Paranasal sinuses/Mastoids: Clear. Soft Tissues: There is a large subcutaneous hematoma in the high right parietal scalp. IMPRESSION: 1. Acute subarachnoid hemorrhage seen in the left sylvian fissure. No mass effect is identified. 2. Large subcutaneous hematoma in the right high parietal scalp. RADIATION DOSE DELIVERED: Total DLP DATA REPOSITORY: All CT scans at this facility are submitted to the National Radiology Data Registry (NRDR) Dose Index Registry (DIR) with the [employer] (A[employer]). RADIATION OPTIMIZATION: All CT scans at this facility use at least one of these dose optimization te chniques: automated exposure control; mA and/or kV adjustment per patient size (includes targeted exa ms where dose is matched to clinical indication); or iterative reconstruction.
--- NOTE | 2023-11-20 18:50 | ED.GENADUL_ITS ---
Discharge Plan Discharge Details Chief Complaint: Laceration Clinical Impression: Hx of falling, Laceration of scalp, Subarachnoid hemorrhage Primary Care Provider: Kiki Ames ED Provider: Elder Chun [place] Meds and New Rx's Prescriptions: New levetiracetam 500 mg tablet 500 mg PO BID 7 Days Qty: 14 0RF levetiracetam 500 mg tablet 500 mg PO BID Qty: 14 0RF Discontinued aspirin [Adult Aspirin Regimen] 81 mg tablet,delayed release (DR/EC) 81 mg PO DAILY No Action Zyrtec 10 mg capsule 10 mg PO DAILY PRN (Reason: allergies) PreserVision AREDS 2 Plus MV 200 mcg-15 mcg- 5 mg-1 mg capsule 1 cap PO DAILY Patient Comments: Pt states not taking ML 12/20/22 cholecalciferol (vitamin D3) 50 mcg (2,000 unit) capsule 50 mcg PO DAILY cyanocobalamin (vitamin B-12) [Vitamin B-12] 250 mg PO DAILY amlodipine 5 mg tablet 5 mg PO DAILY Qty: 90 3RF rosuvastatin 20 mg tablet 20 mg PO DAILY Qty: 90 3RF Discharge Instructions Additional Instructions: You are seen in the emergency department following your fall. You were found to have some bleeding inside your head. Please discontinue taking your aspirin until you are cleared by the neurosurgery team at [facility]. They will arrange for follow-up in the next 4 weeks. You can call them next week to help arrange follow-up: [phone]. To prevent seizures you are also receiving a prescription for an antiseizure medication: levetiracetam. Please take this medicine twice a day. Your prescription has been sent to the [facility] in [place]. For your pain please take medications as follows: 1. Take acetaminophen (Tylenol), 1,000 mg (two 500 mg tabs) every 6 hours You were seen in the emergency department for your scalp laceration which was closed with 5 ashtyn that will need to be removed in 7 to 10 days. As we discussed, please keep your wound clean, dry and covered. Please do not soak in a tub, swim or engage in any activities which could introduce dirt into your wound. You may return to the emergency department, go to urgent care or go to your primary care provider in 7 to 10 days to have your stitches removed. As we discussed if you develop any foul-smelling drainage fevers streaking signs of infection or have any other concerns please return to the emergency department. HPI General Date/Time Provider Initiated Documentation: 11/20/23 18:31 . HPI Narrative: MDM This is an overall well-appearing normothermic and not tachycardic 63-year-old female with approximately 2.5 centimeter posterior scalp laceration for which she will receive CT head based on her age and use of aspirin. No pain out of proportion to suggest necrotizing soft tissue infection. No shortness of breath or chest trauma so doubt pneumothorax so I did not obtain chest x-ray. Will update patient's tetanus status. Will irrigate her wound and apply LET to determine whether or not she requires primary closure. Given no preceding chest pain nausea vomiting and not concern for ACS I did not obtain ECG. Given his syncope no shortness of breath I was not concerned for PE so I did not send a D- dimer. Per Nexus criteria, cervical CT not obtained. The patient had no c-spine midline tenderness, no evidence of intoxication, was AAOx3, had no focal neurological deficits, and no painful distracting injuries. 7:54 PM Patient was found to have a left subarachnoid hemorrhage. Her GCS remained 15. I spoke with Dr. Jaimes from trauma at [facility]. He advised that given injury less than 3 hours 1 g of tranexamic acid would be of benefit. He did not feel that the patient required subsequent TXA infusion. He recommended neurosurgery consultation regarding whether or not to load the patient with levetiracetam. He did not feel that the patient required tertiary care transfer. 8:07 PM I spoke with Yessenia Hsu from neurosurgery at [facility]. She advised repeat CT scan in 6 hours from original scan which would be at 00:30. She also advised 1 g of levetiracetam on subsequent twice daily dosing of 500 mg levetiracetam for 7 days. She will have to arrange outpatient clinic follow-up. She advised that the patient hold her aspirin. She advised the patient to call clinic for follow-up at [phone]. I asked health insulation power unit tender Lissett to fax the referral to [phone]. Will repeat scan sooner if patient's exam or clinical status changes. Patient was not hyponatremic. She is also not anemic and had no thrombocytopenia. She had a normal reassuring INR. Given no preceding headache nor worst headache of life I am not suspicious for nontraumatic origin of subarachnoid hemorrhage. 10:37 PM Mildly elevated ethanol level. CT cervical spine reassuring. No signs of any acute traumatic sequela on chest x-ray. Will repeat CT head at 12:30 AM. Laceration repaired with ashtyn following extensive irrigation. 11:05 PM Patient remains neurologically intact. Will sign patient out to overnight provider Dr. Andres. Repeat CT scan has been ordered. Patient has been written for continued discharge instruction. HPI This is a 63-year-old female arrived to the emergency department via private vehicle in the setting of a fall she sustained just prior to arrival. Patient reports that she slipped while walking upstairs holding a laundry basket and talking on the phone. She fell several steps and hit her head on a shelf. She takes 81 mg of aspirin today. She is not sure when her last tetanus was administered. No preceding chest pain or syncope. No shortness of breath. Exam General: Well-appearing in no acute distress speaking in complete sentences. Head: Normocephalic. On the posterior aspect of the scalp there is an approximately 2 and half centimeter laceration that is hemostatic. Eye:[Pupils equal, round reactive to light.] Extraocular eye movements intact. No conjunctival injection. No scleral icterus. Ear, nose, mouth, throat: Grossly normal inspection. Normal voice, handling secretions normally. No hemotympanum bilaterally. No septal hematoma. Neck: Trachea midline. No midline cervical spinal tenderness. Cardiovascular: Well-perfused distal extremities. Regular rate and rhythm Respiratory: Nonlabored respiration. Clear lungs bilaterally. Gastrointestinal: Nondistended abdomen. Soft nontender. Musculoskeletal: No edema. Moving all 4 extremities spontaneously. Nontender bilateral upper and lower extremities. Skin: Normal for age and race, grossly normal temperature and turgor. No acute rash. Neurologic: Alert and appropriate, no apparent acute deficits. GCS 15. Cranial nerves II through XII intact grossly. 5 out of 5 bilateral upper and lower extremity strength. Psychiatric: Mood and manner are appropriate. Grooming and personal hygiene are appropriate. Related Data Home Medications ?Medication ?Instructions ?Recorded ?Confirmed cetirizine 10 mg capsule (Zyrtec) 10 mg PO DAILY PRN allergies 11/23/22 11/20/23 cholecalciferol (vitamin D3) 50 50 mcg PO DAILY 11/23/22 11/20/23 mcg (2,000 unit) capsule cyanocobalamin (vitamin B-12) 250 mg PO DAILY 11/23/22 11/20/23 [Vitamin B-12] mv-mn-folic 200 mcg-vit K 15 1 cap PO DAILY 11/23/22 11/20/23 mcg-lutein 5 mg-zeaxanthin 1 mg capsule (PreserVision AREDS 2 Plus Multivit) rosuvastatin 20 mg tablet 20 mg PO DAILY #90 tabs 05/16/23 11/20/23 amlodipine 5 mg tablet 5 mg PO DAILY #90 tabs 05/19/23 11/20/23 levetiracetam 500 mg tablet 500 mg PO BID #14 tabs 11/20/23 levetiracetam 500 mg tablet 500 mg PO BID 7 days #14 tabs 11/20/23 Previous Rx's ?Medication ?Instructions ?Recorded rosuvastatin 20 mg tablet 20 mg PO DAILY #90 tabs 05/16/23 amlodipine 5 mg tablet 5 mg PO DAILY #90 tabs 05/19/23 levetiracetam 500 mg tablet 500 mg PO BID #14 tabs 11/20/23 levetiracetam 500 mg tablet 500 mg PO BID 7 days #14 tabs 11/20/23 Allergies Allergy/AdvReac Type Severity Reaction Status Date / Time Penicillins Allergy Intermediate Hives Verified 11/20/23 20:29 General Stated Complaint: Laceration ROSA: 4 Course Vital Signs Vital signs: Vital Signs Temperature 37.1 C 11/20/23 18:25 Pulse 80 11/20/23 18:25 Respiratory Rate 16 11/20/23 18:25 Blood Pressure 156/78 H 11/20/23 18:25 Pulse Oximetry 97 11/20/23 18:25 Temperature 37.1 C 11/20/23 18:25 Temperature Source Temporal Artery Scan 11/20/23 18:25 Pulse 80 11/20/23 18:25 Respiratory Rate 16 11/20/23 18:25 Blood Pressure 156/78 H 11/20/23 18:25 Blood Pressure Position Sitting 11/20/23 18:25 Pulse Oximetry 97 11/20/23 18:25 Oxygen Delivery Method Room Air 11/20/23 18:25 Oxygen Flow Rate 0 11/20/23 18:25 Pain Level 4 11/20/23 18:25 Procedures Laceration Laceration 1: Site: scalp Size (cm): 2.5 Description: linear Depth: simple, single layer Local anesthetic: LET(lidocaine epinephrine tetracaine) Pre-repair: wound explored and irrigated extensively Skin layer closed with: other (5 ashtyn) Medical Decision Making Quality:SDOH Health Related Social Needs: Health related social needs material hardship PFSH All Active Problems (Updated 11/20/23 @ 19:56 by Elder Chun MD) Subarachnoid hemorrhage (Acute) Laceration of scalp (Acute) Hx of falling (Acute) Cough (Acute) Biliary colic (Acute) Torus mandibularis (Acute) Exostosis, jaw (Acute ~01/2023) Family history of aortic stenosis (Acute) Hyperlipidemia (Acute) Primary hypertension (Acute) Onychomycosis (Acute) 12/08/22 [facility] Derm History of melanoma (Acute) Tobacco abuse (Acute) Macular degeneration (Acute) Medical History H/O anxiety disorder Amputated toe of right foot Surgical History H/O abdominoplasty H/O breast augmentation Family History Mother Cancer Diabetes Heart disease Hypertension Father Heart disease Brother Heart disease Sister Cancer Renal cancer Social History Smoking/Tobacco Use Status: Current every day Tobacco Type: cigarettes Tobacco: How many years used: 30 Quit status: considering quitting Smoking risk assessment performed?: Yes Alcohol Intake: current Alcohol Intake frequency: a few times a month Alcohol type: wine Counseling given: No Details: 1 glass of wine per day Drug use: Never Substance use type: does not use Adopted: No Caregiver/Support person: No Foster care: No Household members: spouse Housing: apartment Number of Children: 3 number of grandchildren: 3 Communication Needs: Corrective Lenses Education Level: vocational Do you need help understanding health information?: Never 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 Pets and animals: No Sexually active: Yes Do you think of yourself as: straight/heterosexual Current gender identity: female What is your relationship status?: How often do you talk on the phone with friends or family?: once per week Do you belong to any clubs or organized social groups?: no Panel score (0-1 are the most socially isolated patients): 1 What type of physical activity do you participate in: none Usha/Presybeterian: Adventist Special usha needs: No Seatbelt use: always Drive intox or ride w/intox front load trash truck driver: No Working smoke detector in home: Yes Carbon monox detector in home: Yes Do you feel safe at home: Yes Do you feel safe in your relationship?: Yes Victim of physical abuse: No
[2023-11-20] MEDS: Acetaminophen 500 MG TAB 1000 MG PO (18:52)
[2023-11-20] MEDS: Lidocaine/Epinephri/Tetracaine Topical Gel 3 ML TP (18:55)
--- NOTE | 2023-11-20 19:07 | DI.VRAD_ITS ---
Addendum created by Hannah Garnica MD on 11/20/2023 7:10:52 PM EDT: I discussed case findings with JAZLYN Clarke 11/20/2023 7:10 PM EDT. Initial report created on 11/20/2023 7:07:18 PM EDT: PROCEDURE INFORMATION: Exam: CT Head Without Contrast Exam date and time: 11/20/2023 6:52 PM Age: 63 years old Clinical indication: Injury or trauma; Blunt trauma (contusions or hematomas); Patient HX: Fall, head strike TECHNIQUE: Imaging protocol: Computed tomography of the head without contrast. COMPARISON: No relevant prior studies available. FINDINGS: Brain: There is acute blood seen in the left sylvian fissure and insular cortex region in the subarachnoid space. No subdural collection is identified. No mass effect. Anne-white matter differentiation is appropriate. Cisterns and sulci appear otherwise intact. Cerebral ventricles: No ventriculomegaly. Paranasal sinuses: Visualized sinuses are unremarkable. No fluid levels. Mastoid air cells: Visualized mastoid air cells are well aerated. Bones: Unremarkable. No acute fracture. Soft tissues: Right occipital convexity scalp hematoma and laceration. IMPRESSION: Left subarachnoid hemorrhage. No additional acute posttraumatic abnormality evident. Dictated and Authenticated by: Hannah Garnica MD. Ordering:YUMIKO Friedman MD
--- NOTE | 2023-11-20 19:15 | DI.RAD_ITS ---
Exam(s) XR PORTABLE CHEST AP EXAM: XR PORTABLE CHEST AP CLINICAL HISTORY: Trauma. TECHNIQUE: 2D digital imaging was performed. COMPARISON: CR,XR XR CHEST 2V PA LATERAL from 04/23/2023 FINDINGS: Single AP portable view. Heart size is upper normal. The mediastinum is not widened. Lungs are clear. No infiltrates nor obvious pleural effusions. IMPRESSION: No acute pulmonary findings on this single AP portable view of the chest. DATA REPOSITORY: RADIATION DOSE DELIVERED:
--- NOTE | 2023-11-20 19:45 | DI.CT_ITS ---
Exam(s) CT CERVICAL SPINE WO EXAM: CT CERVICAL SPINE WO CLINICAL HISTORY: Subarachnoid hemorrhage. TECHNIQUE: Imaging Protocol: Axial computed tomography images with coronal and sagittal reformatted images were created and reviewed COMPARISON: No exams were available for comparison FINDINGS: Bones: No acute fracture or subluxation. Age-appropriate degenerative changes are seen in the cervica l spine characterized by disc space narrowing and osteophytes. There is straightening of the normal cervical lordosis. Soft Tissues: Unremarkable. Lung Apices: Clear. IMPRESSION: No acute fracture or subluxation in the cervical spine. RADIATION DOSE DELIVERED: Total DLP Total DLP DATA REPOSITORY: All CT scans at this facility are submitted to the National Radiology Data Registry (NRDR) Dose Index Registry (DIR) with the [employer] (ACR). RADIATION OPTIMIZATION: All CT scans at this facility use at least one of these dose optimization te chniques: automated exposure control; mA and/or kV adjustment per patient size (includes targeted exa ms where dose is matched to clinical indication); or iterative reconstruction.
[2023-11-20 19:48] LABS: Abs Immature Grans 0.05 10^3/uL (0.0-0.06); Absolute Basophil Count 0.07 10^3/uL (0.0-0.2); Absolute Eosinophil Count 0.24 10^3/uL (0.0-0.7); Absolute Lymphocyte Count 2.69 10^3/uL (1.2-3.4); Basophils % 0.6 %; Eosinophils % 2.1 %; HGB 14.1 g/dL (11.2-15.7); Immature Grans % 0.4 %; Lymphocytes % 23.5 %; MCH 26.2 pg (27.0-33.0); MCHC 31.3 % (32.0-36.0); MCV 84 fL (80-95); MPV 10.8 fL (8.0-11.0); Monocytes % 6.6 %; Neutrophils % 66.8 %; Platelet Count 293 10^3/uL (130-400); RBC 5.38 10^6/uL (3.93-5.22); RDW 14.6 % (11.7-14.6); RDW-SD 44.3 fL; WBC 11.43 10^3/uL (4.4-10.8)
[2023-11-20 19:59] LABS: Absolute Monocyte Count 0.75 10^3/uL (0.1-0.8); Absolute Neutrophil Count 7.64 10^3/uL (1.2-6.7); PTT Activated 28.3 sec (23.6-32.8)
[2023-11-20] MEDS: Tranexamic Acid 1,000 MG/10 ML VIAL 1000 MG IVP (20:00)
[2023-11-20 20:03] LABS: ALT 39 U/L (14-59); AST 27 U/L (15-37); Albumin 3.9 g/dL (3.4-5.0); Alkaline Phosphatase 78 U/L (46-116); Anion Gap 10.3 mmol/L (3-11); BUN 18 mg/dL (7-18); Bilirubin, Total 0.24 mg/dL (0.2-1.0); CO2 24.7 mmol/L (21.0-32.0); CREATININE 0.9 mg/dL (0.55-1.02); Chloride 107 mmol/L (98-107); ETHANOL BLOOD 74.3 mg/dL (<10); Estimated GFR 71.39 (mL/min/1.73m2); Glucose 93 mg/dL (74-106); Potassium 3.8 mmol/L (3.5-5.1); Sodium 142 mmol/L (136-145); Total Protein 7.7 g/dL (6.4-8.2)
[2023-11-20] MEDS: levETIRAcetam 1,000 MG in Normal Saline 100 ML 400 MG IVPB (20:24)
--- NOTE | 2023-11-20 21:04 | DI.VRAD_ITS ---
PROCEDURE INFORMATION: Exam: XR Chest Exam date and time: 11/20/2023 8:57 PM Age: 63 years old Clinical indication: Injury or trauma; Patient HX: Head trauma from fall down stairs TECHNIQUE: Imaging protocol: Radiologic exam of the chest. Views: 1 view. Other technique: Portable exam. COMPARISON: CR XR CHEST 2V PA LATERAL 04/23/2023 10:15 PM FINDINGS: Lungs: Unremarkable. No consolidation. Pleural spaces: Unremarkable. No pleural effusion. No pneumothorax. Heart/Mediastinum: Unremarkable. No cardiomegaly. Bones/joints: Unremarkable. Other findings: There is some overlying clothing artifact. IMPRESSION: No evidence for acute abnormality in the chest. Dictated and Authenticated by: Hannah Garnica MD. Ordering:YUMIKO Friedman MD
--- NOTE | 2023-11-20 22:11 | DI.VRAD_ITS ---
PROCEDURE INFORMATION: Exam: CT Cervical Spine Without Contrast Exam date and time: 11/20/2023 9:20 PM Age: 63 years old Clinical indication: Injury; Blunt head trauma; Fall TECHNIQUE: Imaging protocol: Computed tomography of the cervical spine without contrast. COMPARISON: CT HEAD WO 11/20/2023 6:52 PM FINDINGS: Bones: No acute fracture. Normal alignment. No significant disc bulge or herniation. No severe spinal canal stenosis. Narrowing of the right neural foramen at C5-C6. Lungs: Lung apices are normal. Soft tissues: Unremarkable. IMPRESSION: No acute fracture or subluxation. Dictated and Authenticated by: Matt Maldonado MD. Ordering:YUMIKO Friedman MD
--- NOTE | 2023-11-20 23:46 | W.EDPROG ---
Date of service: 11/20/23 Time of Service: 23:46 Medical Decision Making This patient was signed out to me. Please see previous notes for H&P and initial eval. In brief, 63yo F presenting after a fall, found to have a trace SAH, neurointact. Has been discussed with [facility] neurosurgery; plan for repeat CT at 6 hour ramiro, if no changes discharge home to outpatient nsgy followup on keppra ppx, holding home asa. Provisional discharge instructions written. Repeat CT as below, stable. On reassessment she remains well appearing with a normal neurologic exam. Discharged home; discharge instructions and return precautions were reviewed with patient who verbalized understanding. All questions were answered and she is in full agreement with the plan. Imaging Data Radiologic Study: Imaging: CT Scan Radiologist's impression: IMPRESSION: Stable left subclavian fissure subarachnoid hemorrhage. No new hemorrhage Quality:SDOH Health Related Social Needs: Health related social needs material hardship Exam Narrative Exam Narrative: Neuro: ? GCS 15.? PERRL.? EOMI.? Fluent speech, no dysarthria. Motor- 5/5 strength symmetric bilateral upper and lower extrmeties including shoulder abductors/adductors, elbow flexors/extensors, wrist flexors/extensors, finger abductors/adductors, hipflexors/extensors, knee flexors/extensors, ankle dorsiflexors and planter flexors. Sensation- ?Intact to light touch and symmetric multiple dermatomes including upper and lower extremities Coordination- No dysmetria on finger to nose Gait/station: ?Normal stance.? No truncal ataxia. Steady gait with equal normal steps CRANIAL NERVES: II: Pupils equal and reactive, III, IV, : EOM intact, no gaze preference or deviation, no nystagmus. V: normal sensation in V1, V2, and V3 segments bilaterally VII: no asymmetry, no nasolabial fold flattening VIII: normal hearing to speech IX, X: normal palatal elevation, no uvular deviation XI: 5/5 head turn and 5/5 shoulder shrug bilaterally XII: midline tongue protrusion Sign Out Sign Out Data: Sign Out Comment: 63-year-old female on [address] head in setting of subarachnoid hemorrhage following loss of balance and trauma to head this evening. Scalp laceration closed with ashtyn. Tetanus updated. Continue discharge instructions written. If repeat CT head is abnormal or if patient's neurological status deteriorates from her GCS of 15 and nonfocal exam repeat consult with neurosurgeon at [facility]. Last updated by Elder Chun MD at 11/21/23 00:07 Discharge Plan Disposition Patient Disposition: Home Condition: Stable Discharge Details Clinical Impression: Hx of falling, Laceration of scalp, Subarachnoid hemorrhage Primary Care Provider: Kiki Ames ED Provider: Jennifer Andres Home Meds and New Rx's Prescriptions: New levetiracetam 500 mg tablet 500 mg PO BID 7 Days Qty: 14 0RF levetiracetam 500 mg tablet 500 mg PO BID Qty: 14 0RF Discontinued aspirin [Adult Aspirin Regimen] 81 mg tablet,delayed release (DR/EC) 81 mg PO DAILY No Action Zyrtec 10 mg capsule 10 mg PO DAILY PRN (Reason: allergies) PreserVision AREDS 2 Plus MV 200 mcg-15 mcg- 5 mg-1 mg capsule 1 cap PO DAILY Patient Comments: Pt states not taking ML 12/20/22 cholecalciferol (vitamin D3) 50 mcg (2,000 unit) capsule 50 mcg PO DAILY cyanocobalamin (vitamin B-12) [Vitamin B-12] 250 mg PO DAILY amlodipine 5 mg tablet 5 mg PO DAILY Qty: 90 3RF rosuvastatin 20 mg tablet 20 mg PO DAILY Qty: 90 3RF Discharge Instructions Additional Instructions: You are seen in the emergency department following your fall. You were found to have some bleeding inside your head. Please discontinue taking your aspirin until you are cleared by the neurosurgery team at [facility]. They will arrange for follow-up in the next 4 weeks. You can call them next week to help arrange follow-up: [phone]. To prevent seizures you are also receiving a prescription for an antiseizure medication: levetiracetam. Please take this medicine twice a day. Your prescription has been sent to the [facility] in [facility]. For your pain please take medications as follows: 1. Take acetaminophen (Tylenol), 1,000 mg (two 500 mg tabs) every 6 hours You were seen in the emergency department for your scalp laceration which was closed with 5 ashtyn that will need to be removed in 7 to 10 days. As we discussed, please keep your wound clean, dry and covered. Please do not soak in a tub, swim or engage in any activities which could introduce dirt into your wound. You may return to the emergency department, go to urgent care or go to your primary care provider in 7 to 10 days to have your stitches removed. As we discussed if you develop any foul-smelling drainage fevers streaking signs of infection or have any other concerns please return to the emergency department.
--- NOTE | 2023-11-21 00:30 | DI.CT_ITS ---
Exam(s) CT HEAD WO EXAM: CT HEAD WO CLINICAL HISTORY: Subarachnoid hemorrhage. TECHNIQUE: Imaging Protocol: Axial computed tomography images with coronal and sagittal reformatted images were created and reviewed COMPARISON: CT CT HEAD WO from 11/20/2023 FINDINGS: Ventricles and Extra axial spaces: Normal in size and morphology for the patient's age. Hemorrhage: There has been no progression of the small subarachnoid hemorrhage in the left sylvian fi ssure. Cerebral parenchyma: There are subtle areas of decreased attenuation in the white matter suggesting c hronic microvascular ischemic disease. No acute mass effect is identified. Midline shift: None. Brainstem/Cerebellum: Normal. Calvarium: Normal. Visualized Paranasal sinuses/Mastoids: Clear. Soft Tissues: There is a persistent scalp hematoma overlying the posterior high right parietal bone. There has been interval suturing of the laceration. Small amount of subcutaneous air is seen. IMPRESSION: 1. Stable subarachnoid hemorrhage in the left sylvian fissure. No progression or new hemorrhage is s een. 2. There is again seen a scalp hematoma overlying the posterior high right parietal bone. RADIATION DOSE DELIVERED: Total DLP DATA REPOSITORY: All CT scans at this facility are submitted to the National Radiology Data Registry (NRDR) Dose Index Registry (DIR) with the [employer] (ACR). RADIATION OPTIMIZATION: All CT scans at this facility use at least one of these dose optimization te chniques: automated exposure control; mA and/or kV adjustment per patient size (includes targeted exa ms where dose is matched to clinical indication); or iterative reconstruction.
--- NOTE | 2023-11-21 00:43 | DI.VRAD_ITS ---
PROCEDURE INFORMATION: Exam: CT Head Without Contrast Exam date and time: 11/21/2023 12:27 AM Age: 63 years old Clinical indication: Injury or trauma; Fall; Blunt trauma (contusions or hematomas) and other: Repeat head CT; Consciousness not specified TECHNIQUE: Imaging protocol: Computed tomography of the head without contrast. COMPARISON: CT HEAD WO 11/20/2023 6:52 PM FINDINGS: Brain: Stable size of the left sylvian fissure subarachnoid hemorrhage. No recent infarct. No mass effect. Cerebral ventricles: No ventriculomegaly. Paranasal sinuses: Visualized sinuses are unremarkable. No fluid levels. Mastoid air cells: Visualized mastoid air cells are well aerated. Bones: Unremarkable. No acute fracture. Soft tissues: There is a right parieto-occipital subgaleal hematoma. IMPRESSION: Stable left subclavian fissure subarachnoid hemorrhage. No new hemorrhage. Dictated and Authenticated by: Matthew Gonzales MD. Ordering:YUMIKO Friedman MD
[2023-11-21 01:02] VITALS: BP 135/83; PULSE 69; RESP 16; TEMP 36.3; O2SAT 99
--- NOTE | 2023-11-21 03:54 | NUR.NOTE ---
Referral faxed to [facility] Neurosugery to f/u in 4 weeks for subarachnoid bleed. Visit notes lab and DI results, med reconcilliation and face sheet all faxed with referral to [phone].Nursing Note:
--- NOTE | 2023-11-21 14:18 | NUR.NOTE ---
Chart accessed to view discharge summary pt called with a question about medication. Nursing Note:
== END 2023-11-21 01:06 | disposition home or self-care (01) ==
PROVIDERS: Emergency Medicine; Emergency Provider Student in an Organized Health Care Education/Training Program; PCP Nurse Practitioner
DX: S01.01XA Laceration without foreign body of scalp, initial encounter (principal); S06.6X0A Traumatic subarachnoid hemorrhage without loss of consciousness, initial encounter; I10 Essential (primary) hypertension; E78.5 Hyperlipidemia, unspecified; F17.210 Nicotine dependence, cigarettes, uncomplicated; Z79.82 Long term (current) use of aspirin; Z23 Encounter for immunization; W01.198A Fall on same level from slipping, tripping and stumbling with subsequent striking against other object, initial encounter; Y93.01 Activity, walking, marching and hiking; Y92.017 Garden or yard in single-family (private) house as the place of occurrence of the external cause
CPT/HCPCS: 00123; 80053; 90471; 90715; 96365; 99285; 70450; 71045; 72125; 80320; 85025; 85610; 85730; 99284; J1953

== ENCOUNTER 2023-12-11 12:06 | Emergency (ER) | payer BC, SELFPAY ==
[2023-12-11 12:09] VITALS: BP 159/90; PULSE 90; RESP 12; TEMP 36.6; O2SAT 95
--- NOTE | 2023-12-11 12:30 | DI.CT_ITS ---
Exam(s) CT ABDOMEN PELVIS WO EXAM: CT ABDOMEN PELVIS WO CLINICAL HISTORY: Right Flank pain. TECHNIQUE: Imaging Protocol: Axial computed tomography images with coronal and sagittal reformatted images were created and reviewed CONTRAST MATERIAL: Intravenous: none Oral: None COMPARISON: CT CT ABDOMEN PELVIS W from 04/21/2023 FINDINGS: VISUALIZED LUNG BASES: No significant nodules nor pleural effusions evident. Bilateral saline breast implants are again noted with an element of capsular disruption in the medial aspect of the left imp lant again noted, unchanged. ABDOMEN: There is no ascites. LIVER: There are no obvious focal hepatic lesions evident of this noninfused study. GALLBLADDER/BILIARY: There has been interval cholecystectomy. No abnormal findings in the gallbladde r fossa nor dilatation of the biliary tree. CBD is not dilated. PANCREAS: No evidence of pancreatic mass nor dilatation of the pancreatic duct. SPLEEN: Spleen is not enlarged. No obvious intrasplenic lesions. ADRENALS: Again noted is a hypodense mass-nodule in left adrenal gland which measures 3.6 by 2 point 7 by 2.3, unchanged and probably an adenoma. There is also again noted nodularity of the more inferi or aspect of the ipsilateral adrenal gland and lateral limb of the opposite-right adrenal gland, unch anged. KIDNEYS:There is a small 1-2 mm nonobstructive calculus in the left kidney. No hydronephrosis nor hy droureter on either side. No obvious calculi in the right kidney. No solid renal masses nor cysts. No perinephric streaking.. ABDOMINAL AORTA: Again noted to be peripherally calcified. Maximum diameter again noted be 2.1 cm. Iliac arteries are also calcified but not enlarged. LYMPH NODES: There is no retroperitoneal nor paraaortic adenopathy. ABDOMINAL WALL: No evidence of significant anterior abdominal wall nor inguinal hernia. GI: There is no evidence of bowel obstruction, free air, nor abscess. PELVIS: LYMPH NODES: There is no intrapelvic nor inguinal adenopathy. GI: There is hyperdense material including multiple appendicoliths within the appendix lumen. Howeve r, the appendix continues to exhibit normal diameter (5 mm) and without significant periappendiceal s treaking evident nor regional lymphadenopathy. Fatty ileocecal valve noted. Terminal ileum appears unremarkable. There are few diverticuli in left side of the colon but no evidence of acute diverticu litis.No evidence of sigmoid diverticulitis. URINARY BLADDER: No calculi nor obvious masses evident REPRODUCTIVE: No significant findings in the uterus and adnexal regions. No free fluid in the pelvis . OSSEOUS: No fractures significant osseous lesions. No prominent disc space narrowing lumbar spine. IMPRESSION: 1. Compared to the prior CT scan of April 2023 there has been interval cholecystectomy. There are no abnormal findings in the gallbladder fossa and the biliary tree is not dilated. 2. There is hyperdense material and multiple small appendicoliths within the appendix lumen which wer e not previously present. However, there is no obvious evidence of acute appendicitis at this time. Also no regional lymphadenopathy in the right lower quadrant. 3. There is a small 2-3 millimeter solitary nonobstructive calculus in the left kidney. No calculi s een in the right kidney. No hydronephrosis nor hydroureter on either side and there are no radiopaqu e calculi in the normal appearing urinary bladder. 4. There is a stable appearing hypodense mass in the left adrenal gland with measurements as above a s well as additional nodularity of both adrenal glands, all unchanged from the April [address] CT scan. Probable adenoma given lack of growth in 8 months. However, would recommend follow-up MRI of the ad renal glands with in and out of phase imaging for added specificity concerning these adrenal findings . RADIATION DOSE DELIVERED: 648.49mGy.cm Total DLP DATA REPOSITORY: All CT scans at this facility are submitted to the National Radiology Data Registry (NRDR) Dose Index Registry (DIR) with the [employer] (ACR). RADIATION OPTIMIZATION: All CT scans at this facility use at least one of these dose optimization te chniques: automated exposure control; mA and/or kV adjustment per patient size (includes targeted exa ms where dose is matched to clinical indication); or iterative reconstruction.
--- NOTE | 2023-12-11 12:41 | ED.GENADUL_ITS ---
Discharge Plan Disposition Patient Disposition: Home Condition: Stable Discharge Details Clinical Impression: Flank pain Primary Care Provider: Kiki Ames ED Provider: Kristie William Home Meds and New Rx's Prescriptions: New lidocaine 5 % adhesive patch,medicated 1 patch topical DAILY Qty: 15 0RF Rx Instructions: leave on most painful area for up to 12 hrs Continued Zyrtec 10 mg capsule 10 mg PO DAILY PRN (Reason: allergies) PreserVision AREDS 2 Plus MV 200 mcg-15 mcg- 5 mg-1 mg capsule 1 cap PO DAILY Patient Comments: Pt states not taking ML 12/20/22 cholecalciferol (vitamin D3) 50 mcg (2,000 unit) capsule 50 mcg PO DAILY cyanocobalamin (vitamin B-12) [Vitamin B-12] 250 mg PO DAILY amlodipine 5 mg tablet 5 mg PO DAILY Qty: 90 3RF rosuvastatin 20 mg tablet 20 mg PO DAILY Qty: 90 3RF Discharge Instructions Instructions: Abdominal Pain, Adult ED, Flank Pain ED Additional Instructions: I did speak with the surgeon who states that there is no evidence of appendicitis at this time. He did have a small growth on your adrenal gland, this was there previously please follow-up with your PCP regarding this. There is a small kidney stone in the left kidney which is nonobstructing. No kidney stone seen in the right kidney. No evidence of urinary tract infection, you do appear to be a little bit dehydrated. Use the lidocaine patches as directed. Please take Tylenol or Ibuprofen with food every 4-6 hours as needed for pain and swelling. Alternate ice and heat Follow up with primary care provider in 3-5 days. Return to ED sooner if any worsening or concerns. Referrals: Kiki Ames, [employer] [Primary Care Provider] - 5 days HPI General Mode of arrival: ambulatory . Date/Time Provider Initiated Documentation: 12/11/23 12:07 . Limitations to Documentation: no limitations . Information obtained by: patient, RN notes reviewed and old records reviewed . HPI Narrative: 63-year-old female presents to the ER with a chief complaint of right flank pain which radiates into the front which began on . She reports initially had waves of nausea which is somewhat resolved, no vomiting no diarrhea. She reports chills no fever. She does have a history of a Corinna cystectomy. She reports that the pain is worse with standing up and walking. Related Data Home Medications ?Medication ?Instructions ?Recorded ?Confirmed cetirizine 10 mg capsule (Zyrtec) 10 mg PO DAILY PRN allergies 11/23/22 12/11/23 cholecalciferol (vitamin D3) 50 50 mcg PO DAILY 11/23/22 12/11/23 mcg (2,000 unit) capsule cyanocobalamin (vitamin B-12) 250 mg PO DAILY 11/23/22 12/11/23 [Vitamin B-12] mv-mn-folic 200 mcg-vit K 15 1 cap PO DAILY 11/23/22 12/11/23 mcg-lutein 5 mg-zeaxanthin 1 mg capsule (PreserVision AREDS 2 Plus Multivit) rosuvastatin 20 mg tablet 20 mg PO DAILY #90 tabs 05/16/23 12/11/23 amlodipine 5 mg tablet 5 mg PO DAILY #90 tabs 05/19/23 12/11/23 lidocaine 5 % topical patch 1 patch topical DAILY #15 ea 12/11/23 Previous Rx's ?Medication ?Instructions ?Recorded rosuvastatin 20 mg tablet 20 mg PO DAILY #90 tabs 05/16/23 amlodipine 5 mg tablet 5 mg PO DAILY #90 tabs 05/19/23 lidocaine 5 % topical patch 1 patch topical DAILY #15 ea 12/11/23 Allergies Allergy/AdvReac Type Severity Reaction Status Date / Time Penicillins Allergy Intermediate Hives Verified 12/11/23 12:13 General Stated Complaint: FlankPain ROSA: 3 Review of Systems All systems reviewed & are unremarkable except as noted in HPI and below Cardiovascular Cardiovascular: Denies dyspnea Respiratory Respiratory: Denies dyspnea Gastrointestinal Gastrointestinal: Reports as per HPI, Reports abdominal pain, Reports nausea and Denies vomiting Exam Narrative Exam Narrative: Constitutional: Alert and oriented x3. Appears stated age. Normal body habitus. Head: Normocephalic, no trauma. Eyes: Pupils PERRL, Red reflex noted, EOM's intact. Eyelids symmetrical without lesions, discharge, or swelling. ENT: Bilateral TM's WNL, External ear normal to inspection, no mastoid TTP, swelling, or erythema, Nasal turbinates WNL, no nasal discharge. Normal dentition, Posterior pharynx WNL, no exudate. Chest: RRR, Normal S1, S2, distal pulses intact. Resp: Lungs clear to auscultation bilaterally, no wheezes, rales, or rhonchi. Abdomen: Soft, non-distended, Normoactive bowel sounds all 4 quads. Musculoskeletal: Normal gait, Moves all 4 extremities without difficulty. Skin: No suspicious rashes or lesions. Capillary refill less than 2 sec. Neurologic: Cranial nerves II-XII intact. Alert and oriented x 3. Motor: No deficits noted. Sensory: Intact bilaterally all 4 extremities. Hematologic/Lymphatic: No ecchymosis, no lymphadenopathy. Course Vital Signs Vital signs: Vital Signs Temperature 36.6 C 12/11/23 12:09 Pulse 90 12/11/23 12:09 Respiratory Rate 12 12/11/23 12:09 Blood Pressure 159/90 H 12/11/23 12:09 Pulse Oximetry 95 12/11/23 12:09 Temperature 36.6 C 12/11/23 12:09 Temperature Source Oral 12/11/23 12:09 Pulse 90 12/11/23 12:09 Respiratory Rate 12 12/11/23 12:09 Respiratory Effort Normal, Non-Labored 12/11/23 12:12 Blood Pressure 159/90 H 12/11/23 12:09 Blood Pressure Position Sitting 12/11/23 12:09 Pulse Oximetry 95 12/11/23 12:09 Oxygen Delivery Method Room Air 12/11/23 12:09 Oxygen Flow Rate 0 12/11/23 12:09 Pain Level 7 12/11/23 12:36 Medical Decision Making 63-year-old female presents to the ER with a chief complaint of right flank pain which radiates into the front which began on . She reports initially had waves of nausea which is somewhat resolved, no vomiting no diarrhea. She reports chills no fever. She does have a history of a Corinna cystectomy. She reports that the pain is worse with standing up and walking. Workup ordered including CBC CMP, lipase urinalysis. Will order CT abdomen pelvis. Differential diagnose includes but not limited to pneumonia, choledocholithia sis, kidney stone, UTI, pyelo-nephritis. See labs below. Will page surgery to discuss CT results regarding possible appendicolith, discussed results with patient who verbalized understanding. 1502: Spoke with Dr. Parker who is on for general surgery, he will view the CT images and call me back. Spoke with Dr. Parker, he reports no evidence of appendicitis, will have patient follow up with PCP. Will give toradol and lidocaine patch here in ER. This text was generated using [employer] dictation system, please disregard any oddities of phrase or misspellings. Imaging Data Radiologic Study: Imaging: CT Scan Radiologist's impression: Reproductive: Unremarkable as visualized. Bones/joints: Unremarkable. No acute fracture. Soft tissues: There are bilateral breast implants. There is a linear density within the left breast implant., unchanged subsegmental atelectasis in the lingula. The small fat containing umbilical and paraumbilical hernia. IMPRESSION: 1. No acute abdominal or pelvic abnormalities. No hydronephrosis or nephrolithiasis. 2. High-density material within the mid and distal appendix may represent appendicolith with no CT evidence of acute inflammation. 3. Cholecystectomy. Thank you for allowing us to participate in the care of your patient. Dictated and Authenticated by: Emile Arce DO Lab Data Lab results reviewed: Yes I reviewed the patient's lab results. Labs: Laboratory Tests Range/Units 12/11/23 12/11/23 12:30 12:50 WBC (4.4-10.8) 10^3/uL 11.23 H RBC (3.93-5.22) 10^6/uL 5.24 H Hgb (11.2-15.7) g/dL 13.7 Hct (36.0-46.0) % 43.8 MCV (80-95) fL 84 MCH (27.0-33.0) pg 26.1 L MCHC (32.0-36.0) % 31.3 L RDW (11.7-14.6) % 14.6 Plt Count (130-400) 10^3/uL 319 MPV (8.0-11.0) fL 11.2 H Immature Gran % % 0.4 Neutrophils % % 69.5 Lymphocytes % % 20.0 Monocytes % % 7.7 Eosinophils % % 1.7 Basophils % % 0.7 Nucleated RBC % (0.0-0.3) % 0.0 Absolute Neutrophils (1.2-6.7) 10^3/uL 7.80 H Absolute Lymphocytes (1.2-3.4) 10^3/uL 2.25 Absolute Monocytes (0.1-0.8) 10^3/uL 0.86 H Absolute Eosinophils (0.0-0.7) 10^3/uL 0.19 Absolute Basophils (0.0-0.2) 10^3/uL 0.08 Sodium (136-145) mmol/L 142 Potassium (3.5-5.1) mmol/L 3.8 Chloride (98-107) mmol/L 105 Carbon Dioxide (21.0-32.0) mmol/L 26.0 Anion Gap (3-11) mmol/L 11.0 BUN (7-18) mg/dL 17 Creatinine (0.55-1.02) mg/dL 0.9 Est GFR (CKD-EPI 2020) (mL/min/1.73m2) 71.39 Glucose (74-106) mg/dL 108 H Calcium (8.5-10.1) mg/dL 9.6 Total Bilirubin (0.2-1.0) mg/dL 0.25 AST (15-37) U/L 16 ALT (14-59) U/L 31 Alkaline Phosphatase (46-116) U/L 74 Total Protein (6.4-8.2) g/dL 7.6 Albumin (3.4-5.0) g/dL 3.8 Lipase (16-77) U/L 69 Urine Color (Yellow) Yellow Urine Clarity (Clear) Clear Urine pH (5-8) 7.0 Ur Specific [place] (1.005-1.025) 1.020 Urine Protein (Neg-Trace) mg/dL Negative Urine Ketones (Negative) mg/dL Trace H Urine Blood (Negative) Negative Urine Nitrite (Negative) Negative Urine Bilirubin (Negative) Negative Urine Urobilinogen (Up to 0.2) mg/dL 0.2 Ur Leukocyte Esterase (Negative) Negative Urine Glucose (Negative) mg/dL Negative Quality:SDOH Health Related Social Needs: Health related social needs material hardship PFSH All Active Problems (Updated 12/11/23 @ 15:10 by Kristie William NP) Flank pain (Acute) Subarachnoid hemorrhage (Acute) Laceration of scalp (Acute) Hx of falling (Acute) Cough (Acute) Biliary colic (Acute) Torus mandibularis (Acute) Exostosis, jaw (Acute ~01/2023) Family history of aortic stenosis (Acute) Hyperlipidemia (Acute) Primary hypertension (Acute) Onychomycosis (Acute) 12/08/22 [facility] History of melanoma (Acute) Tobacco abuse (Acute) Macular degeneration (Acute) Medical History Cholecystitis, acute with cholelithiasis H/O anxiety disorder Amputated toe of right foot Surgical History H/O abdominoplasty H/O breast augmentation Family History Mother Cancer Diabetes Heart disease Hypertension Father Heart disease Brother Heart disease Sister Cancer Renal cancer Social History Smoking/Tobacco Use Status: Current every day Tobacco Type: cigarettes Tobacco: How many years used: 30 Quit status: considering quitting Smoking risk assessment performed?: Yes Alcohol Intake: current Alcohol Intake frequency: a few times a month Alcohol type: wine Counseling given: No Details: 1 glass of wine per day Drug use: Never Substance use type: does not use Adopted: No Caregiver/Support person: No Foster care: No Household members: spouse Housing: apartment Number of Children: 3 number of grandchildren: 3 Communication Needs: Corrective Lenses Education Level: vocational Do you need help understanding health information?: Never 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 Pets and animals: No Sexually active: Yes Do you think of yourself as: straight/heterosexual Current gender identity: female What is your relationship status?: How often do you talk on the phone with friends or family?: once per week Do you belong to any clubs or organized social groups?: no Panel score (0-1 are the most socially isolated patients): 1 What type of physical activity do you participate in: none Usha/Latter-Day: Yarsani Special usha needs: No Seatbelt use: always Drive intox or ride w/intox 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 Working smoke detector in home: Yes Carbon monox detector in home: Yes Do you feel safe at home: Yes Do you feel safe in your relationship?: Yes Victim of physical abuse: No PAWSS Have you Been Recently Intoxicated or Drunk Within the Last 30 days?: No Have you Ever Experienced Previous Episodes of Alcohol Withdrawal?: No Have you ever Experienced Withdrawal Seizures?: No Have you ever Experienced Delirium Tremens(DT)s?: No Have you ever undergone Alcohol Rehabilitation Treatment (i.e, inpt ot outpatient treatment programs)?: No Have you ever Experienced Blackouts?: No Have you ever Combined Alcohol with other Downers within the last 90 days?: No Have you ever Combined Alcohol with any other Substance of Abuse during the last 90 days?: No Positive Blood Alcohol level on Presentation? [PCS.BAL]: No Evidence of Increased Autonomic Activity (i.e. HR>120, tremor, sweating, agitation, nausea)?: No Result: 0
[2023-12-11 13:09] LABS: Abs Immature Grans 0.04 10^3/uL (0.0-0.06); Absolute Basophil Count 0.08 10^3/uL (0.0-0.2); Absolute Eosinophil Count 0.19 10^3/uL (0.0-0.7); Absolute Lymphocyte Count 2.25 10^3/uL (1.2-3.4); Absolute Monocyte Count 0.86 10^3/uL (0.1-0.8); Basophils % 0.7 %; Eosinophils % 1.7 %; HCT 43.8 % (36.0-46.0); HGB 13.7 g/dL (11.2-15.7); Immature Grans % 0.4 %; MCH 26.1 pg (27.0-33.0); MCHC 31.3 % (32.0-36.0); MCV 84 fL (80-95); MPV 11.2 fL (8.0-11.0); Monocytes % 7.7 %; Neutrophils % 69.5 %; Platelet Count 319 10^3/uL (130-400); RBC 5.24 10^6/uL (3.93-5.22); RDW 14.6 % (11.7-14.6); RDW-SD 44.6 fL; WBC 11.23 10^3/uL (4.4-10.8)
[2023-12-11 13:19] LABS: ALT 31 U/L (14-59); AST 16 U/L (15-37); Albumin 3.8 g/dL (3.4-5.0); Alkaline Phosphatase 74 U/L (46-116); BUN 17 mg/dL (7-18); Bilirubin, Total 0.25 mg/dL (0.2-1.0); CREATININE 0.9 mg/dL (0.55-1.02); Chloride 105 mmol/L (98-107); Estimated GFR 71.39 (mL/min/1.73m2); Glucose 108 mg/dL (74-106); Lipase 69 U/L (16-77); Potassium 3.8 mmol/L (3.5-5.1); Sodium 142 mmol/L (136-145); Total Protein 7.6 g/dL (6.4-8.2)
[2023-12-11 13:24] LABS: Bilirubin Negative (Negative); Blood Negative (Negative); Clarity Clear (Clear); Glucose Negative (Negative); Ketones Trace mg/dL (Negative); Leukocyte Esterase Negative (Negative); Nitrite Negative (Negative); Urobilinogen 0.2 mg/dL (Up to 0.2)
[2023-12-11 13:31] LABS: Calcium 9.6 mg/dL (8.5-10.1)
[2023-12-11] MEDS: Normal Saline 1,000 ML 1000 ML IV (13:43)
[2023-12-11 13:46] VITALS: BP 127/59; PULSE 64; O2SAT 96
--- NOTE | 2023-12-11 13:57 | DI.VRAD_ITS ---
PROCEDURE INFORMATION: Exam: CT Abdomen And Pelvis Without Contrast Exam date and time: 12/11/2023 1:11 PM Age: 63 years old Clinical indication: Abdominal pain; Flank; Right TECHNIQUE: Imaging protocol: Computed tomography of the abdomen and pelvis without contrast. COMPARISON: CT ABDOMEN PELVIS W 04/21/2023 12:11 PM FINDINGS: Liver: Normal. No mass. Gallbladder and biliary ducts: There is cholecystectomy. No biliary ductal dilatation. Pancreas: Normal. No ductal dilation. Spleen: Normal. No splenomegaly. Adrenal glands: There is 3.9 x 2.8 cm axial by 2.9 cm mass in the left adrenal gland, probably adenoma. Additionally, nodularity in the left adrenal gland in the lateral and the medial limb may represent adenoma. These are unchanged Kidneys and ureters: Normal. No hydronephrosis. Stomach and bowel: There is diverticulosis of the sigmoid colon without acute inflammation. No bowel obstruction or mucosal thickening . Large bowel and distended from descending colon to sigmoid colon. Appendix: Appendix demonstrates high density material in the mid to distal appendix and may represent appendicolith. There is no gross acute inflammation. Postsurgical changes in the right inguinal region. Intraperitoneal space: Unremarkable. No free air. No significant fluid collection. Vasculature: Unremarkable. No abdominal aortic aneurysm. Lymph nodes: Unremarkable. No enlarged lymph nodes. Urinary bladder: Unremarkable as visualized. Reproductive: Unremarkable as visualized. Bones/joints: Unremarkable. No acute fracture. Soft tissues: There are bilateral breast implants. There is a linear density within the left breast implant., unchanged subsegmental atelectasis in the lingula. The small fat containing umbilical and paraumbilical hernia. IMPRESSION: 1. No acute abdominal or pelvic abnormalities. No hydronephrosis or nephrolithiasis. 2. High-density material within the mid and distal appendix may represent appendicolith with no CT evidence of acute inflammation. 3. Cholecystectomy. Dictated and Authenticated by: Emile Arce MD. Ordering:MG Flowers MD
[2023-12-11 14:01] VITALS: BP 140/62; PULSE 68; O2SAT 98
[2023-12-11 14:54] VITALS: BP 148/56; PULSE 63
[2023-12-11] MEDS: Ketorolac 15 MG/ML VIAL IVP (15:27)
[2023-12-11] MEDS: Lidocaine 5% Patch 1 PATCH TP (15:27)
== END 2023-12-11 15:35 | disposition home or self-care (01) ==
PROVIDERS: Emergency Provider Registered Nurse Emergency; PCP Nurse Practitioner
DX: R10.31 Right lower quadrant pain (principal); Z87.19 Personal history of other diseases of the digestive system
CPT/HCPCS: 80053; 83690; 96361; 96374; 99284; 74176; 81003; 85025; 99283; J1885